=== PATIENT | female | born 1935 | race Caucasian/White ===

== ENCOUNTER → 2018-02-02 08:23 | Outpatient (CLI) | payer MEDICARE, SELFPAY ==
[2018-02-02 09:04] LABS: Abs Immature Grans 0.01 k/cumm (0.0-0.09); Absolute Basophil Count 0.06 k/cumm (0.0-0.2); Absolute Lymphocyte Count 1.65 k/cumm (1.2-3.4); Absolute Monocyte Count 0.59 k/cumm (0.11-0.7); Absolute Neutrophil Count 3.16 k/cumm (1.2-6.7); Eosinophils % 8.4; HGB 12.8 g/dL (12.0-15.5); Immature Grans % 0.2; Lymphocytes % 27.6; Mean Corp. HGB Concentration 33.7 g/dL (32.0-36.0); Mean Corpuscular Hemoglobin 32.5 pg (27.0-33.0); Mean Corpuscular Volume 96.4 fL (80-95); Mean Platelet Volume 10.1 fL (8.0-11.0); Monocytes % 9.9; Neutrophils % 52.9; Platelet Count 313 x1000/uL (130-400); RBC 3.94 m/cumm (4.00-5.20); RBC Distribution Width 12.9 % (11.7-14.6); White Blood Cell Count 5.97 k/cumm (4.4-10.8)
[2018-02-02 10:04] LABS: ALT 14 U/L (12-78); AST 12 U/L (15-37); Alkaline Phosphatase 49 U/L (46-116); C-Reactive Protein 0.19 mg/dL (0.0-0.3); CREATININE 0.77 mg/dL (0.55-1.02)
== END ==
PROVIDERS: PCP Family Medicine; Visit Provider Internal Medicine Rheumatology
DX: M06.4 Inflammatory polyarthropathy (principal); Z79.899 Other long term (current) drug therapy
CPT/HCPCS: 36415; 82565; 84075; 84450; 84460; 85025; 86140

== ENCOUNTER → 2018-02-16 11:15 | Outpatient (CLI) | payer MEDICARE, OTHER, SELFPAY | PROVIDERS: PCP Family Medicine; Visit Provider Orthopaedic Surgery | DX: M25.511 Pain in right shoulder (principal); M06.4 Inflammatory polyarthropathy | CPT/HCPCS: 99213 ==

== ENCOUNTER → 2018-04-06 10:08 | Outpatient (BNVA) | payer MEDICARE, OTHER, SELFPAY | PROVIDERS: Visit Provider Orthopaedic Surgery | DX: M25.511 Pain in right shoulder (principal); G89.29 Other chronic pain | CPT/HCPCS: 99211; 99213 ==

== ENCOUNTER 2018-06-09 02:04 | Outpatient (RCR) | payer MEDICARE, SELFPAY ==
[2018-06-09] MEDS: Normal Saline Flush 10 ML SYR IVP (10:17)
== END 2018-06-28 23:59 | disposition home or self-care (01) ==
LOC: INF 02:04
PROVIDERS: PCP Family Medicine; Visit Provider Family Medicine
DX: M81.0 Age-related osteoporosis without current pathological fracture (principal)
CPT/HCPCS: 96365; J3489

== ENCOUNTER 2018-08-05 09:54 | Outpatient (CLI) | payer MEDICARE, SELFPAY ==
--- NOTE | 2018-08-05 10:22 | DI.RAD_ITS ---
SYMPTOMS/DIAGNOSIS: PAIN S/P FALL LEFT WRIST: Four views of the wrist were obtained. There is marked degenerative change of the navicular greater multangular, navicular lesser multangular and greater multangular 1st metacarpal articulations with marked subchondral sclerosis, loss of the cartilaginous joint spaces and prominent osteophyte formation. The remainder of the carpus shows mild degenerative changes only. No evidence of acute injury.
== END 2018-08-05 10:14 ==
PROVIDERS: PCP Family Medicine; Visit Provider Physician Assistant Surgical
DX: M25.532 Pain in left wrist (principal); M19.032 Primary osteoarthritis, left wrist; Z91.81 History of falling
CPT/HCPCS: 73110

== ENCOUNTER 2018-08-05 10:12 | Outpatient (CLI) | payer MEDICARE, SELFPAY ==
--- NOTE | 2018-08-05 10:04 | DI.RAD_ITS ---
SYMPTOMS/DIAGNOSIS: PAIN S/P FALL LEFT SHOULDER: Two views were obtained. Mild degenerative changes of the glenohumeral joint noted. No other specific abnormality seen. LEFT ELBOW: Three views were obtained. No evidence of an elbow joint effusion or hemarthrosis. No focal bony abnormality seen.
== END 2018-08-05 10:32 ==
PROVIDERS: PCP Family Medicine; Referring Provider Family Medicine; Visit Provider Orthopaedic Surgery
DX: M25.512 Pain in left shoulder (principal); M19.012 Primary osteoarthritis, left shoulder; M25.522 Pain in left elbow; M25.532 Pain in left wrist; M19.032 Primary osteoarthritis, left wrist; S50.02XA Contusion of left elbow, initial encounter; S60.012A Contusion of left thumb without damage to nail, initial encounter; S40.012A Contusion of left shoulder, initial encounter; W19.XXXA Unspecified fall, initial encounter
CPT/HCPCS: 36415; 80053; 99214; 73030; 73080; 73110; 85025; 86140

== ENCOUNTER 2018-08-05 10:49 | Outpatient (CLI) | payer MEDICARE, SELFPAY ==
[2018-08-05 11:32] LABS: Abs Immature Grans 0.02 k/cumm (0.0-0.09); Absolute Basophil Count 0.04 k/cumm (0.0-0.2); Absolute Eosinophil Count 0.26 k/cumm (0.0-0.7); Absolute Lymphocyte Count 1.34 k/cumm (1.2-3.4); Absolute Monocyte Count 0.55 k/cumm (0.11-0.7); Absolute Neutrophil Count 7.18 k/cumm (1.2-6.7); Basophils % 0.4; Eosinophils % 2.8; HCT 38.7 % (36.0-46.0); HGB 12.5 g/dL (12.0-15.5); Immature Grans % 0.2; Lymphocytes % 14.3; Mean Corp. HGB Concentration 32.3 g/dL (32.0-36.0); Mean Corpuscular Hemoglobin 30.9 pg (27.0-33.0); Mean Corpuscular Volume 95.8 fL (80-95); Mean Platelet Volume 10.6 fL (8.0-11.0); Monocytes % 5.9; Neutrophils % 76.4; Platelet Count 352 x1000/uL (130-400); RBC 4.04 m/cumm (4.00-5.20); White Blood Cell Count 9.39 k/cumm (4.4-10.8)
[2018-08-05 12:26] LABS: ALT 11 U/L (12-78); AST 14 U/L (15-37); Albumin 3.6 g/dL (3.4-5.0); Alkaline Phosphatase 57 U/L (46-116); Anion Gap 8.1 mmol/L (3-11); BUN 20 mg/dL (7-18); Bilirubin, Total 0.4 mg/dL (0.2-1.0); C-Reactive Protein 0.68 mg/dL (0.0-0.3); CO2 27.9 mmol/L (21.0-32.0); CREATININE 0.69 mg/dL (0.55-1.02); Calcium 9.2 mg/dL (8.5-10.1); Chloride 105 mmol/L (98-107); Glucose 95 mg/dL (70-100); Potassium 4.6 mmol/L (3.5-5.1); Sodium 141 mmol/L (136-145); Total Protein 6.7 g/dL (6.4-8.2)
== END 2018-08-05 11:09 ==
PROVIDERS: PCP Family Medicine; Visit Provider Internal Medicine Rheumatology
DX: M06.4 Inflammatory polyarthropathy (principal); Z79.899 Other long term (current) drug therapy
CPT/HCPCS: 36415; 80053; 85025; 86140

== ENCOUNTER 2018-11-01 15:15 | Outpatient (CLI) | payer MEDICARE, SELFPAY ==
[2018-11-01 15:43] LABS: Abs Immature Grans 0.02 k/cumm (0.0-0.09); Absolute Basophil Count 0.05 k/cumm (0.0-0.2); Absolute Eosinophil Count 0.28 k/cumm (0.0-0.7); Absolute Lymphocyte Count 1.36 k/cumm (1.2-3.4); Absolute Monocyte Count 0.57 k/cumm (0.11-0.7); Absolute Neutrophil Count 6.65 k/cumm (1.2-6.7); Basophils % 0.6; Eosinophils % 3.1; HCT 40.5 % (36.0-46.0); HGB 13.5 g/dL (12.0-15.5); Immature Grans % 0.2; Lymphocytes % 15.2; Mean Corp. HGB Concentration 33.3 g/dL (32.0-36.0); Mean Corpuscular Hemoglobin 31.3 pg (27.0-33.0); Mean Platelet Volume 10.2 fL (8.0-11.0); Monocytes % 6.4; Neutrophils % 74.5; Platelet Count 338 x1000/uL (130-400); RBC 4.31 m/cumm (4.00-5.20); RBC Distribution Width 13.1 % (11.7-14.6); White Blood Cell Count 8.93 k/cumm (4.4-10.8)
[2018-11-01 16:25] LABS: ALT 17 U/L (12-78); AST 11 U/L (15-37); Albumin 3.7 g/dL (3.4-5.0); Alkaline Phosphatase 53 U/L (46-116); Anion Gap 7.2 mmol/L (3-11); BUN 21 mg/dL (7-18); Bilirubin, Total 0.3 mg/dL (0.2-1.0); C-Reactive Protein 0.44 mg/dL (0.0-0.3); CO2 27.8 mmol/L (21.0-32.0); CREATININE 0.75 mg/dL (0.55-1.02); Calcium 8.8 mg/dL (8.5-10.1); Chloride 104 mmol/L (98-107); Glucose 170 mg/dL (70-100); Potassium 4.1 mmol/L (3.5-5.1); Sodium 139 mmol/L (136-145); Total Protein 6.6 g/dL (6.4-8.2)
[2018-11-02 11:48] LABS: Hemoglobin A1C 6.2 % (4.5-6.2)
== END 2018-11-01 15:35 ==
PROVIDERS: PCP Family Medicine; Visit Provider Internal Medicine Rheumatology
DX: M06.4 Inflammatory polyarthropathy (principal); Z79.899 Other long term (current) drug therapy; R73.9 Hyperglycemia, unspecified
CPT/HCPCS: 36415; 80053; 83036; 85025; 86140

== ENCOUNTER 2019-02-11 02:06 | Outpatient (CLI) | payer MEDICARE, SELFPAY ==
[2019-02-11 09:22] LABS: Abs Immature Grans 0.02 k/cumm (0.0-0.09); Absolute Basophil Count 0.05 k/cumm (0.0-0.2); Absolute Eosinophil Count 0.38 k/cumm (0.0-0.7); Absolute Lymphocyte Count 1.52 k/cumm (1.2-3.4); Absolute Monocyte Count 0.66 k/cumm (0.11-0.7); Absolute Neutrophil Count 3.59 k/cumm (1.2-6.7); Basophils % 0.8; Eosinophils % 6.1; HCT 40.3 % (36.0-46.0); Immature Grans % 0.3; Lymphocytes % 24.4; Mean Corp. HGB Concentration 32.3 g/dL (32.0-36.0); Mean Corpuscular Hemoglobin 30.7 pg (27.0-33.0); Mean Platelet Volume 10.4 fL (8.0-11.0); Monocytes % 10.6; Neutrophils % 57.8; Platelet Count 375 x1000/uL (130-400); RBC 4.24 m/cumm (4.00-5.20); White Blood Cell Count 6.22 k/cumm (4.4-10.8)
[2019-02-11 10:25] LABS: ALT 11 U/L (12-78); Albumin 3.3 g/dL (3.4-5.0); Alkaline Phosphatase 60 U/L (46-116); Anion Gap 7.7 mmol/L (3-11); BUN 16 mg/dL (7-18); Bilirubin, Total 0.4 mg/dL (0.2-1.0); C-Reactive Protein 4.52 mg/dL (0.0-0.3); CO2 29.3 mmol/L (21.0-32.0); CREATININE 0.67 mg/dL (0.55-1.02); Calcium 8.7 mg/dL (8.5-10.1); Chloride 106 mmol/L (98-107); Glucose 87 mg/dL (70-100); Potassium 4.7 mmol/L (3.5-5.1); Sodium 143 mmol/L (136-145); Total Protein 6.4 g/dL (6.4-8.2)
[2019-02-11 10:29] LABS: AST < 5 U/L (15-37)
== END 2019-02-11 02:26 ==
PROVIDERS: PCP Family Medicine; Visit Provider Internal Medicine Rheumatology
DX: M06.4 Inflammatory polyarthropathy (principal); Z79.899 Other long term (current) drug therapy
CPT/HCPCS: 36415; 80053; 85025; 86140

== ENCOUNTER 2019-05-13 01:47 | Outpatient (CLI) | payer MEDICARE, SELFPAY ==
[2019-05-13 09:12] LABS: Abs Immature Grans 0.01 k/cumm (0.0-0.09); Absolute Basophil Count 0.05 k/cumm (0.0-0.2); Absolute Eosinophil Count 0.27 k/cumm (0.0-0.7); Absolute Lymphocyte Count 2.22 k/cumm (1.2-3.4); Absolute Monocyte Count 0.71 k/cumm (0.11-0.7); Absolute Neutrophil Count 4.53 k/cumm (1.2-6.7); Basophils % 0.6; Eosinophils % 3.5; HCT 42.5 % (36.0-46.0); HGB 13.9 g/dL (12.0-15.5); Immature Grans % 0.1; Lymphocytes % 28.5; Mean Corp. HGB Concentration 32.7 g/dL (32.0-36.0); Mean Corpuscular Hemoglobin 31.4 pg (27.0-33.0); Mean Corpuscular Volume 95.9 fL (80-95); Mean Platelet Volume 10.6 fL (8.0-11.0); Monocytes % 9.1; Neutrophils % 58.2; Platelet Count 360 x1000/uL (130-400); RBC 4.43 m/cumm (4.00-5.20); RBC Distribution Width 13.4 % (11.7-14.6); White Blood Cell Count 7.79 k/cumm (4.4-10.8)
[2019-05-13 09:46] LABS: ALT 14 U/L (14-59); AST 10 U/L (15-37); Albumin 3.8 g/dL (3.4-5.0); Alkaline Phosphatase 46 U/L (46-116); Anion Gap 7.4 mmol/L (3-11); BUN 19 mg/dL (7-18); Bilirubin, Total 0.3 mg/dL (0.2-1.0); C-Reactive Protein 0.13 mg/dL (0.0-0.3); CO2 29.6 mmol/L (21.0-32.0); CREATININE 0.72 mg/dL (0.55-1.02); Calcium 8.7 mg/dL (8.5-10.1); Chloride 106 mmol/L (98-107); Glucose 86 mg/dL (70-100); Potassium 4.5 mmol/L (3.5-5.1); Sodium 143 mmol/L (136-145); Total Protein 6.6 g/dL (6.4-8.2)
== END 2019-05-13 02:07 ==
PROVIDERS: PCP Family Medicine; Visit Provider Internal Medicine Rheumatology
DX: M06.4 Inflammatory polyarthropathy (principal); Z79.899 Other long term (current) drug therapy
CPT/HCPCS: 36415; 80053; 85025; 86140

== ENCOUNTER 2019-06-15 01:07 | Outpatient (RCR) | payer MEDICARE, SELFPAY ==
[2019-06-15] MEDS: Normal Saline Flush 10 ML SYR IVP (10:25)
== END 2019-06-28 23:59 | disposition home or self-care (01) ==
LOC: INF 01:07
PROVIDERS: PCP Family Medicine; Visit Provider Family Medicine
DX: M81.0 Age-related osteoporosis without current pathological fracture (principal)
CPT/HCPCS: 96365; J3489

== ENCOUNTER 2019-07-01 01:51 | Outpatient (CLI) | payer MEDICARE, SELFPAY ==
[2019-07-01 11:04] LABS: Abs Immature Grans 0.03 k/cumm (0.0-0.09); Absolute Basophil Count 0.06 k/cumm (0.0-0.2); Absolute Lymphocyte Count 1.77 k/cumm (1.2-3.4); Absolute Monocyte Count 0.71 k/cumm (0.11-0.7); Absolute Neutrophil Count 4.71 k/cumm (1.2-6.7); Basophils % 0.8; Eosinophils % 5.2; HCT 40.7 % (36.0-46.0); HGB 13.5 g/dL (12.0-15.5); Immature Grans % 0.4 %; Mean Corp. HGB Concentration 33.2 g/dL (32.0-36.0); Mean Corpuscular Hemoglobin 31.9 pg (27.0-33.0); Mean Corpuscular Volume 96.2 fL (80-95); Mean Platelet Volume 10.2 fL (8.0-11.0); Monocytes % 9.2; Neutrophils % 61.4; Platelet Count 344 x1000/uL (130-400); RBC 4.23 m/cumm (4.00-5.20); White Blood Cell Count 7.68 k/cumm (4.4-10.8)
[2019-07-01 11:51] LABS: ALT 11 U/L (14-59); AST 12 U/L (15-37); Albumin 3.8 g/dL (3.4-5.0); Alkaline Phosphatase 52 U/L (46-116); Anion Gap 6.9 mmol/L (3-11); BUN 20 mg/dL (7-18); Bilirubin, Total 0.4 mg/dL (0.2-1.0); C-Reactive Protein 0.18 mg/dL (0.0-0.3); CO2 29.1 mmol/L (21.0-32.0); CREATININE 0.66 mg/dL (0.55-1.02); Calcium 9.5 mg/dL (8.5-10.1); Chloride 107 mmol/L (98-107); Glucose 92 mg/dL (74-106); Potassium 4.9 mmol/L (3.5-5.1); Sodium 143 mmol/L (136-145); Total Protein 6.7 g/dL (6.4-8.2)
== END 2019-07-01 02:11 ==
PROVIDERS: PCP Family Medicine; Visit Provider Internal Medicine Rheumatology
DX: M06.4 Inflammatory polyarthropathy (principal); Z79.899 Other long term (current) drug therapy
CPT/HCPCS: 36415; 80053; 85025; 86140

== ENCOUNTER 2019-08-18 19:58 | Emergency (ER) | payer MEDICARE, SELFPAY ==
[2019-08-18] VITALS (15 sets, daily range): BP systolic 140–182; BP diastolic 57–116; PULSE 63–80; RESP 11–24; TEMP 36.7; O2SAT 93–100
--- NOTE | 2019-08-18 20:11 | ED.GENADUL_ITS ---
Discharge Plan Disposition Patient Disposition: HOME Condition: Good Discharge Details Chief Complaint: GenMedical Clinical Impression: Viral respiratory illness Primary Care Provider: Chico Lee ED Provider: Christophe Jaime Home Meds and New Rx's Prescriptions: Continued oxybutynin chloride 5 mg tablet extended release 24hr 5 mg PO DAILY Qty: 90 RF: 4 hydroxychloroquine [Plaquenil] 200 MG tablet 1.5 tab PO QAM Qty: 135 RF: 4 albuterol sulfate [Ventolin HFA] 8 GM HFA aerosol inhaler 2 puff Inhalation QID PRNQty: 3 RF: 4 acetaminophen [Tylenol Extra Strength] 500 MG tablet 3 tab PO DAILY PRN RF: 0 cholecalciferol (vitamin D3) [Vitamin D3] 2,000 UNIT capsule 2,000 unit PO DAILY Qty: 1 RF: 0 cyanocobalamin (vitamin B-12) 2,500 MCG tablet 1,000 mcg PO DAILY Qty: 1 RF: 0 clobetasol-emollient 15 GM cream 15 gm Topical DAILY Qty: 1 RF: 6 prednisone 5 mg tablet 10 mg PO DAILY Qty: 30 RF: 1 Discharge Instructions Instructions: Viral Syndrome (ED) Additional Instructions: It will be important to rest and stay hydrated over the next few days. Use Tylenol every 6-8 hours for discomfort. Your chest x-ray is negative for pneumonia. Likely viral illness which should resolve over the next week or so. Follow-up with primary care late next week if not doing better. Return to ED for shortness of breath, worsening/persistent chest pain, vomiting, mental status changes, other concerns. Referrals: Chico Lee [Primary Care Provider] - Medical Decision Making Patient presented with respiratory symptoms. Though she told the nurse she had chest pressure she denies this to me and states she just has a fleeting feeling of discomfort for a couple seconds now and then. She has no shortness of breath. Her EKG is unremarkable. 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 She is also on Plaquenil. IV started by nursing. Will send CBC and chemistry, obtain flu swab, obtain x-ray. Labs are fine. White count normal. Chest x-ray shows no evidence of infiltrate. She has reproducible chest wall pain likely from coughing. She does not have any type of prolonged chest pain or pressure and I do not think this is cardiac at all. Recommend rest and fluids as well as Tylenol every 6 hours. Follow-up with primary care next week if not better. Return to ED if increasing/prolong pain, shortness of breath, vomiting, mental status changes, other concerns. Medical Records Medical records reviewed: Yes I reviewed the patient's medical records. Lab Data Lab results reviewed: Yes I reviewed the patient's lab results. ECG Data Attestation: I personally reviewed and interpreted this ECG (s) as follows: Prior ECG tracings: not available for review Interpretation: Sinus rhythm at 77. Normal intervals and axis. Nonspecific ST changes noted. No acute elevation or depression. HPI General Mode of arrival: ambulatory . Date/Time Provider Initiated Documentation: 08/18/19 20:08 . Limitations to Documentation: no limitations . Information obtained by: patient, RN notes reviewed and old records reviewed . HPI Narrative: Patient presents to ED with complaint of not feeling well for the last couple of days. She reports nasal congestion, sore throat, dry cough. She denies having any type of shortness of breath. She denies having any chest pain. When asked about her complaint to the nurse she states she has had some fleeting less than a couple seconds discomfort in her chest that she cannot describe. She has no body aches or headaches. She has no vomiting or abdominal pain. Stools are little loose but not really diarrhea. Related Data Home Medications Medication Instructions Recorded Confirmed albuterol sulfate [Ventolin HFA] 2 puff INHALATION QID PRN #3 inh 09/14/12 08/18/19 hydroxychloroquine [Plaquenil] 1.5 tab PO QAM #135 tab 09/14/12 08/18/19 acetaminophen [Tylenol Extra 3 tab PO DAILY PRN tab-cap 03/22/13 08/18/19 Strength] cholecalciferol (vitamin D3) 2,000 unit PO DAILY #1 07/29/16 08/18/19 [Vitamin D3] cyanocobalamin (vitamin B-12) 1,000 mcg PO DAILY #1 07/29/16 08/18/19 clobetasol-emollient 15 gm TOPICAL DAILY #1 tube 05/15/17 08/18/19 prednisone 5 mg tablet 10 mg PO DAILY #30 tab-cap 04/06/19 08/18/19 oxybutynin chloride 5 mg 5 mg PO DAILY #90 tab-cap 06/03/19 08/18/19 tablet,extended release 24 hr Previous Rx's Medication Instructions Recorded clobetasol-emollient 15 gm TOPICAL DAILY #1 tube 05/15/17 oxybutynin chloride 5 mg 5 mg PO DAILY #90 tab-cap 06/03/19 tablet,extended release 24 hr Allergies Allergy/AdvReac Type Severity Reaction Status Date / Time rofecoxib AdvReac Mild NAUSEA Unverified 08/18/19 20:06 methotrexate AdvReac Unknown Unverified 08/18/19 20:06 shellfish derived AdvReac NAUSEA & Unverified 08/18/19 20:06 VOMITING General Stated Complaint: GenMedical EZEKIEL: 3 Review of Systems Narrative: As documented in HPI otherwise negative as below. Const: no fever, chills, weakness Resp: cough; no SOB, pleuritic pain CV: no CP, diaphoresis, edema, syncope GI: no abdominal pain, nausea, vomiting, diarrhea Neuro: no headache, numbness, focal weakness, confusion [facility] Medical History (Updated 08/18/19 @ 21:19 by Christophe Jaime MD) Depression With anxiety previously treated with citalopram. Hyperlipidemia (Chronic) Lichen sclerosus et atrophicus of the vulva Diagnosed 1985 with [place] [facility] Periodic clobetasol use. Osteoporosis (Chronic) metatarsal bone fracture left, compression fx back chronic prednisone reclast Pernicious anemia (Chronic) oral B12 Polymyalgia rheumatica (Chronic) sero neg RA, sees fama Urge incontinence of urine Mild symptoms Vaginal wall prolapse Stage III cystocele and rectocele. 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 Colpocleisis recommended. Surgical History Abdominal hysterectomy BSO. Had wound infection. Appendectomy Cholecystectomy Colonoscopy - IV Sedation (12/31/12) WENDY BYRNE Colonoscopy - MAC (05/18/15) DR.C NGUYEN Cystocele Repair - Anterior Colprrhaphy 09/19/2011 Extraction of cataract O.U. Replacement of total knee joint (~2008) LEFT Sigmoidoscopy (~2003) resection for diverticulitis and divertic.abscess Social History Smoking/Tobacco Use Status: Never Alcohol Intake: never Drug use: Never Substance use type: does not use Household members: spouse and other Details: H-Jean Number of Children: 3 Do you feel safe at home: Yes Do you feel safe in your relationship?: Yes Female Reproductive History Menstrual Menopause type: surgical (SILVIO/BSO) History History 4 Para 4 Hx # Term Pregnancies 4 Multiple births Hx # Pregnancies Ectopic pregnancies AB induced Hx Number of Living Children 3 AB spontaneous Exam Narrative Exam Narrative: Vitals: Afebrile. Elevated blood pressure otherwise normal vitals. Room air pulse oximetry mid to low 90s. Const: WDWN elderly female in NAD. HEENT: NC/AT. Normal facial exam. TMs clear bilaterally. Oropharynx and posterior oropharynx unremarkable. Eyes: Normal conjunctiva and sclera. Neck: Supple. Trachea midline. Lungs: Normal respiratory effort. Lungs are clear. There is no wheezing or rhonchi appreciated. There is reproducible chest wall pain with palpation along the sternal border and across the lower ribs. Cor: RRR without murmur/gallop. Good radial pulses. GI: Soft. NT/ND. No guarding or rebound. Neuro: A+O x 3. Normal speech, mentation, gait. Cranial nerves II - XII grossly intact. No gross motor or sensory deficit. Ext: No C/C/E. No calf tenderness. Skin: Warm and dry without rash. Course Vital Signs Vital signs: Vital Signs Temperature 98.1 F 08/18/19 20:02 Pulse 80 08/18/19 20:02 Respiratory Rate 19 08/18/19 20:02 Blood Pressure 182/74 H 08/18/19 20:02 Pulse Oximetry 93 L 08/18/19 20:02 Temperature 98.1 F 08/18/19 20:02 Temperature Source Temporal Artery Scan 08/18/19 20:02 Pulse 80 08/18/19 20:02 Respiratory Rate 19 08/18/19 20:07 Respiratory Effort Non-Labored 08/18/19 20:07 Respiratory Depth Normal 08/18/19 20:07 Respiratory Pattern Normal 08/18/19 20:07 Blood Pressure 182/74 H 08/18/19 20:02 Pulse Oximetry 93 L 08/18/19 20:02 Oxygen Delivery Method Room Air 08/18/19 20:02 Oxygen Flow Rate 0 08/18/19 20:02 Pain Level 0 08/18/19 20:02
[2019-08-18 20:38] LABS: Abs Immature Grans 0.01 k/cumm (0.0-0.09); Absolute Basophil Count 0.03 k/cumm (0.0-0.2); Absolute Eosinophil Count 0.06 k/cumm (0.0-0.7); Absolute Lymphocyte Count 1.97 k/cumm (1.2-3.4); Absolute Monocyte Count 0.59 k/cumm (0.11-0.7); Absolute Neutrophil Count 7.41 k/cumm (1.2-6.7); Basophils % 0.3; Eosinophils % 0.6; HCT 39.9 % (36.0-46.0); HGB 13.3 g/dL (12.0-15.5); Immature Grans % 0.1 %; Lymphocytes % 19.6; Mean Corp. HGB Concentration 33.3 g/dL (32.0-36.0); Mean Corpuscular Hemoglobin 32.1 pg (27.0-33.0); Mean Corpuscular Volume 96.4 fL (80-95); Mean Platelet Volume 10.7 fL (8.0-11.0); Monocytes % 5.9; Neutrophils % 73.5; Platelet Count 344 x1000/uL (130-400); RBC 4.14 m/cumm (4.00-5.20); RBC Distribution Width 12.9 % (11.7-14.6); White Blood Cell Count 10.07 k/cumm (4.4-10.8)
[2019-08-18 20:41] LABS: BUN 23 mg/dL (7-18); CREATININE 0.95 mg/dL (0.55-1.02); Calcium 8.8 mg/dL (8.5-10.1); Chloride 105 mmol/L (98-107); Estimated GFR 56.32 (mL/min/1.73m2); Glucose 163 mg/dL (74-106); Potassium 3.9 mmol/L (3.5-5.1); Sodium 142 mmol/L (136-145)
--- NOTE | 2019-08-18 20:50 | DI.RAD_ITS ---
EXAM: XR CHEST 2V PA LATERAL INDICATION: cough. COMPARISON: LEFT RIBS TO INCLUDE CXR from 02/22/2016 TECHNIQUE: 2D digital imaging was performed. FINDINGS: The heart size is within normal limits. A hiatal hernia is again noted, moderate in size. The lungs show mild fibrotic changes but are otherwise clear. No focal infiltrate, effusion or pulmonary meliza a is seen. There is a stable midthoracic compression fracture. There are also mild degenerative tin nges of the thoracic spine. IMPRESSION: No acute abnormality. DATA REPOSITORY: RADIATION DOSE DELIVERED:
--- NOTE | 2019-08-18 21:07 | DI.VRAD_ITS ---
PROCEDURE INFORMATION: Exam: XR Chest, 2 Views Exam date and time: 08/18/2019 8:48 PM Age: 84 years old Clinical indication: Cough TECHNIQUE: Imaging protocol: XR of the chest Views: 2 views. COMPARISON: CR LEFT RIBS TO INCLUDE CXR 02/22/2016 8:47 PM FINDINGS: Lungs: Hyperinflation. Minimally prominent retrosternal and retrocardiac air spaces. No consolidation. Pleural space: Unremarkable. No pleural effusion. No pneumothorax. Heart/Mediastinum: Widening of superior mediastinum, unchanged. No cardiomegaly. Diaphragm: Flattened hemidiaphragms. Bones/joints: Unremarkable. IMPRESSION: 1. No acute findings. 2. Radiographic appearance consistent with the presence of COPD. Dictated and Authenticated by: Clyde Live MD. Ordering:SHEBA Saeed MD
[2019-08-18] MEDS: Acetaminophen 325 MG TAB 650 MG PO (21:26)
== END 2019-08-18 21:40 | disposition home or self-care (01) ==
PROVIDERS: Emergency Provider Emergency Medicine; PCP Family Medicine
DX: J22 Unspecified acute lower respiratory infection (principal)
CPT/HCPCS: 80048; 87449; 93005; 99284; 71046; 85025; 93010; 99283

== ENCOUNTER 2020-01-02 10:36 | Outpatient (CLI) | payer MEDICARE, SELFPAY ==
--- NOTE | 2020-01-02 10:02 | DI.RAD_ITS ---
EXAM: XR CHEST 2V PA LATERAL CLINICAL HISTORY: crackles on exam bibasilar, R09.89 TECHNIQUE: 2D digital imaging was performed. COMPARISON: No exams were available for comparison FINDINGS: The heart size is normal. The aorta is tortuous and shows calcification. The lungs are well inflate d. There are mild fibrotic changes. No infiltrate, effusion or pneumothorax is seen. There is a sta ble midthoracic compression fracture. There is a small hiatal hernia. IMPRESSION: No acute abnormality.
== END 2020-01-02 10:56 ==
PROVIDERS: PCP Nurse Practitioner Family; Visit Provider Nurse Practitioner Family
DX: R09.89 Other specified symptoms and signs involving the circulatory and respiratory systems (principal); K44.9 Diaphragmatic hernia without obstruction or gangrene
CPT/HCPCS: 71046

== ENCOUNTER 2020-01-06 03:23 | Outpatient (CLI) | payer MEDICARE, SELFPAY ==
[2020-01-06 10:46] LABS: Abs Immature Grans 0.03 k/cumm (0.0-0.09); Absolute Basophil Count 0.05 k/cumm (0.0-0.2); Absolute Eosinophil Count 0.38 k/cumm (0.0-0.7); Basophils % 0.4; Eosinophils % 3.3; HCT 40.5 % (36.0-46.0); HGB 13.4 g/dL (12.0-15.5); Immature Grans % 0.3 %; Lymphocytes % 13.1; Mean Corp. HGB Concentration 33.1 g/dL (32.0-36.0); Mean Corpuscular Volume 96.7 fL (80-95); Mean Platelet Volume 10.3 fL (8.0-11.0); Monocytes % 5.3; Neutrophils % 77.6; Platelet Count 335 x1000/uL (130-400); RBC 4.19 m/cumm (4.00-5.20); RBC Distribution Width 12.9 % (11.7-14.6); White Blood Cell Count 11.41 k/cumm (4.4-10.8)
[2020-01-06 10:53] LABS: Absolute Lymphocyte Count 1.49 k/cumm (1.2-3.4); Absolute Neutrophil Count 8.85 k/cumm (1.2-6.7)
[2020-01-06 10:54] LABS: Hemoglobin A1C 5.8 % (3.8-5.6)
[2020-01-06 11:30] LABS: Calculated LDL 154 mg/dL (<100); Cholesterol 233 mg/dL (<200); HDL Cholesterol 58 mg/dL (40-60); Triglyceride 109 mg/dL (<150)
[2020-01-06 11:34] LABS: ALT 14 U/L (14-59); AST 14 U/L (15-37); Albumin 3.9 g/dL (3.4-5.0); Alkaline Phosphatase 41 U/L (46-116); Anion Gap 8.9 mmol/L (3-11); BUN 18 mg/dL (7-18); Bilirubin, Total 0.4 mg/dL (0.2-1.0); C-Reactive Protein 0.11 mg/dL (0.0-0.3); CO2 28.1 mmol/L (21.0-32.0); CREATININE 0.82 mg/dL (0.55-1.02); Calcium 9.2 mg/dL (8.5-10.1); Chloride 104 mmol/L (98-107); Glucose 104 mg/dL (74-106); Potassium 4.2 mmol/L (3.5-5.1); Sodium 141 mmol/L (136-145); Total Protein 6.7 g/dL (6.4-8.2)
== END 2020-01-06 03:43 ==
PROVIDERS: PCP Nurse Practitioner Family; Visit Provider Internal Medicine Rheumatology
DX: R73.03 Prediabetes (principal); E78.5 Hyperlipidemia, unspecified; M06.4 Inflammatory polyarthropathy; Z79.899 Other long term (current) drug therapy
CPT/HCPCS: 36415; 80053; 80061; 83036; 85025; 86140

== ENCOUNTER → 2020-03-20 10:40 | Outpatient (BNVA) | payer MEDICARE, SELFPAY | PROVIDERS: PCP Nurse Practitioner Family; Referring Provider Nurse Practitioner Family; Visit Provider Orthopaedic Surgery | DX: M19.011 Primary osteoarthritis, right shoulder (principal) | CPT/HCPCS: 20610; 99213; J1040 ==

== ENCOUNTER 2020-06-26 02:51 | Outpatient (RCR) | payer MEDICARE, SELFPAY ==
[2020-06-26] MEDS: Normal Saline Flush 10 ML SYR IVP (10:09)
== END 2020-06-28 23:59 | disposition home or self-care (01) ==
LOC: INF 02:51
PROVIDERS: PCP Nurse Practitioner Family; Visit Provider Nurse Practitioner Acute Care
DX: M81.0 Age-related osteoporosis without current pathological fracture (principal)
CPT/HCPCS: 96365; J3489

== ENCOUNTER 2020-07-24 15:31 | Outpatient (CLI) | payer MEDICARE, SELFPAY ==
--- NOTE | 2020-07-24 14:54 | DI.RAD_ITS ---
EXAM: XR SHOULDER RT COMPLETE 2+V CLINICAL HISTORY: F/u. TECHNIQUE: 2D digital imaging was performed. COMPARISON: CR XR shoulder LT complete 2+V from 08/05/2018 CR XR CHEST 2V PA LATERAL from 01/02/2020 CR XR CHEST 2V PA LATERAL from 01/02/2020 FINDINGS: There is severe narrowing of the normal acromial humeral space. The humeral head articulates with th e inferior aspect of the acromion which appears deformed and thinned. There is also severe narrowing of the glenoid humeral joint. The findings have worsened when compared with the previous chest x-ra y. There is mild spurring at the AC joint. IMPRESSION: Severe degenerative changes and chronic rotator cuff tear. DATA REPOSITORY: RADIATION DOSE DELIVERED:
== END 2020-07-24 15:51 ==
PROVIDERS: PCP Nurse Practitioner Family; Referring Provider Nurse Practitioner Family; Visit Provider Student in an Organized Health Care Education/Training Program
DX: M19.011 Primary osteoarthritis, right shoulder (principal); M06.4 Inflammatory polyarthropathy; M75.101 Unspecified rotator cuff tear or rupture of right shoulder, not specified as traumatic
CPT/HCPCS: 20610; 99214; 73030; J1040

== ENCOUNTER → 2020-11-20 13:00 | Outpatient (BNVA) | payer MEDICARE, SELFPAY | PROVIDERS: PCP Nurse Practitioner Family; Referring Provider Nurse Practitioner Family; Visit Provider Student in an Organized Health Care Education/Training Program | DX: M19.011 Primary osteoarthritis, right shoulder (principal); M75.101 Unspecified rotator cuff tear or rupture of right shoulder, not specified as traumatic | CPT/HCPCS: 20610; 99213; J1040 ==

== ENCOUNTER 2020-12-08 13:03 | Outpatient (REF) | payer MEDICARE, SELFPAY | END 2020-12-08 13:04 | disposition home or self-care (01) | LOC: LBN 13:03 | PROVIDERS: Visit Provider Nurse Practitioner Family | DX: R35.0 Frequency of micturition (principal) | CPT/HCPCS: 87077; 87086; 87186 ==

== ENCOUNTER 2020-12-25 12:05 | Outpatient (REF) | payer MEDICARE, SELFPAY ==
[2020-12-25 14:06] LABS: HCT 40.4 % (36.0-46.0); HGB 13.2 g/dL (11.2-15.7); MCH 32.3 pg (27.0-33.0); MCHC 32.7 % (32.0-36.0); MCV 98.8 fL (80-95); Platelet Count 341 10^3/uL (130-400); RBC 4.09 10^6/uL (3.93-5.22); RDW 12.9 % (11.7-14.6)
[2020-12-25 14:21] LABS: Anion Gap 8.7 mmol/L (3-11); BUN 16 mg/dL (7-18); CO2 29.3 mmol/L (21.0-32.0); CREATININE 0.8 mg/dL (0.55-1.02); Calcium 8.7 mg/dL (8.5-10.1); Chloride 105 mmol/L (98-107); Ferritin 77 ng/mL (8-252); Glucose 121 mg/dL (74-106); Sodium 143 mmol/L (136-145)
[2020-12-25 14:50] LABS: Iron 69 ug/dL (50-170); Total Iron Binding Capacity 300 ug/dL (250-450); Transferrin Sat 23 % (15-50)
== END 2020-12-25 12:06 | disposition home or self-care (01) ==
LOC: LBN 12:05
PROVIDERS: PCP Nurse Practitioner Family; Visit Provider Nurse Practitioner Family
DX: G25.81 Restless legs syndrome (principal); Z86.2 Personal history of diseases of the blood and blood-forming organs and certain disorders involving the immune mechanism
CPT/HCPCS: 80048; 85027; 82728; 83540; 83550

== ENCOUNTER 2020-12-30 14:13 | Emergency (ER) | payer MEDICARE, SELFPAY ==
[2020-12-30 14:17] VITALS: BP 154/68; PULSE 74; TEMP 36.7; O2SAT 96
--- NOTE | 2020-12-30 14:25 | ED.GENADUL_ITS ---
Discharge Plan Disposition Patient Disposition: HOME Condition: Good Discharge Details Clinical Impression: Acute pain of right foot Primary Care Provider: Destiny Brooke ED Provider: Margarita Romo Home Meds and New Rx's Prescriptions: Continued prednisone 5 mg tablet 5 mg PO DAILY Qty: 30 RF: 1 cholecalciferol (vitamin D3) 25 mcg (1,000 unit) capsule 25 mcg PO DAILY RF: 0 aspirin 81 mg tablet,delayed release (DR/EC) 81 mg PO DAILY RF: 0 cyanocobalamin (vitamin B-12) 2,500 MCG tablet 1,000 mcg PO DAILY Qty: 1 RF: 0 oxybutynin chloride 5 mg tablet extended release 24hr 5 mg PO DAILY Qty: 90 RF: 4 Discharge Instructions Instructions: Leg Pain (ED) Additional Instructions: Encourage rest, ice, elevation. Tylenol and/or ibuprofen as needed for continued discomfort. Please keep your appointment this week with your physician. If you develop fever/chills, increased pain, difficulty walking or other new/worsening symptoms please seek care urgently once again. Referrals: Destiny Brooke, OBO [Primary Care Provider] - Julee Sherman [ [facility] STAFF PHYSICIAN] - Medical Decision Making Patient is a pleasant 85-year-old female presenting today with chief complaint of right lower extremity pain. Reports for the past 2 days she has been having spasms. States these are brought on with ambulation though she does have some low-level discomfort when at rest. Pain is primarily in the midfoot and when she tries to dorsiflex can radiate up the anterior aspect of the calf towards the knee. No pain elicited when she palpates on the anterior aspect of the calf, but does have pain in the foot. No known trauma. However, has been working on her [employer] and has been hauling [employer], belives she may have injuried herself doing this. Denies fevers or chills. Has not had pain like this historically. No recent travel or accidents being sedentary. Patient is not anticoagulated, no history of blood clots. On exam, patient appears nontoxic. Vital signs are stable. She discretely tender in the midfoot with blood palpation on the plantar and dorsal surface. She has 2+ distal pulses, intact capillary refill, calf is soft and nontender. She does have pain that radiates up the calf with dorsiflexion of the ankle. Her exam is most consistent with musculoskeletal issue. Concerned for LisFranc injury, will obtained weighted view xray. Will give Ibuprofen for discomfort. FINDINGS: Bones/joints: There are severe midfoot degenerative changes. No acute fracture or malalignment. Soft tissues: Normal. IMPRESSION: 1. No acute fracture or malalignment. 2. Severe mid foot degenerative changes. Discussed the significant arthritis with the patient. She and i discussed further evaluation. However, she agrees that her pain with dorsiflexion is associated with MSK cause in the setting of her OA. Considered mendez splint, ligamentous discomfort, contusion vs. other. No evidence of infection. She states that she has upcoming appointment with her OA specialist at [facility], would prefer to keep this appointment and discuss further then. I also offered splinting or supportive device but she would like to hold off. She advises she has more supportive shoes at home. Return precautions were discussed. All of her questions and cocnerns were addressed, she is in agreement with this plan. HPI General Mode of arrival: ambulatory . Date/Time Provider Initiated Documentation: 12/30/20 14:14 . Limitations to Documentation: no limitations . Information obtained by: patient and RN notes reviewed . History of Present Illness 85 year old F presents to the emergency department with the chief complaint of right foot pain, described as moderate, with intensity rated at 6. Quality is described as aching, and is localized to the right and lower extremity. Patient extremity (radiates up anterior calf with dorsiflexion of foot). Patient started experiencing this day(s) and it has been constant. Immobilization improves symptom(s), Movement worsens symptoms . Patient notes no other symptoms.; denies chest pain, fever/chills, rash, shortness of breath and weakness. Patient did receive the following treatments prior to arrival, other (tylenol) Related Data Home Medications Medication Instructions Recorded Confirmed cyanocobalamin (vitamin B-12) 1,000 mcg PO DAILY #1 07/29/16 11/20/20 cholecalciferol (vitamin D3) 25 25 mcg PO DAILY 12/29/19 11/20/20 mcg (1,000 unit) capsule prednisone 5 mg tablet 5 mg PO DAILY #30 tab-cap 12/29/19 11/20/20 aspirin 81 mg tablet,delayed 81 mg PO DAILY 03/20/20 11/20/20 release oxybutynin chloride 5 mg 5 mg PO DAILY #90 tab-cap 05/15/20 11/20/20 tablet,extended release 24 hr Previous Rx's Medication Instructions Recorded oxybutynin chloride 5 mg 5 mg PO DAILY #90 tab-cap 05/15/20 tablet,extended release 24 hr Allergies Allergy/AdvReac Type Severity Reaction Status Date / Time benzonatate Allergy Intermediate Verified 11/20/20 13:09 rofecoxib AdvReac Mild NAUSEA Unverified 11/20/20 13:09 methotrexate AdvReac Unknown Unverified 11/20/20 13:09 shellfish derived AdvReac NAUSEA & Unverified 11/20/20 13:09 VOMITING General Stated Complaint: Vascular EZEKIEL: 3 Review of Systems Constitutional Constitutional: Reports as per HPI, Denies chills, Denies fever(s), Denies headache(s) and Denies weakness ENT Ears, Nose, Mouth, and Throat: Denies headache(s) Cardiovascular Cardiovascular: Reports as per HPI Respiratory Respiratory: Reports as per HPI and Denies cough Musculoskeletal Musculoskeletal: Reports as per HPI and Denies tingling Integumentary/Breasts Skin/Breast: Reports as per HPI, Denies rash and Denies wounds Neurologic Neurologic: Reports as per HPI, Denies headache(s), Denies tingling, Denies paresthesias and Denies weakness [facility] Medical History DJD of right shoulder Hyperlipidemia Inflammatory polyarthropathy Followed by [facility] Rheumatology, 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 Periodic clobetasol use. Major depressive disorder Osteoporosis Reclast annually. Dexa 2019 Pelvic organ prolapse quantification stage 3 cystocele Polymyalgia rheumatica Prediabetes Urge incontinence Vitamin B 12 deficiency Surgical History H/O cataract extraction S/P appendectomy S/P cholecystectomy S/P colon resection (~2003) S/P colonoscopy S/P total abdominal hysterectomy and bilateral salpingo-oophorectomy Status post total left knee replacement (01/31/09) 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) Family History Mother , at 50 from Crohn disease Crohn disease Father , at 50 of SC Heart disease Myocardial infarction Brother , at 76 of lung cancer Lung cancer Brother , at 50 of cancer Cancer Son , at 55 from esophageal cancer Esophageal cancer Son No problems noted. Son No problems noted. Daughter No problems noted. Maternal Grandfather No problems noted. Maternal Grandmother No problems noted. Paternal Grandfather No problems noted. Paternal Grandmother No problems noted. Social History Smoking/Tobacco Use Status: Never Smoking risk assessment performed?: Yes Alcohol Intake: never Drug use: Never Substance use type: does not use Household members: spouse and other Details: H-Jean Number of Children: 3 Current gender identity: female Do you feel safe at home: Yes Do you feel safe in your relationship?: Yes Female Reproductive History Menstrual Menopause type: surgical (SILVIO/BSO) History History 4 Para 4 Hx # Term Pregnancies 4 Multiple births Hx # Pregnancies Ectopic pregnancies AB induced Hx Number of Living Children 3 AB spontaneous Exam Const General: cooperative, healthy appearing, comfortable, no acute distress, well developed and well groomed Nutritional Appearance: average body habitus and well nourished Orientation: alert and awake Resp Effort & Inspection: normal respiratory effort, able to speak in complete sentences and no respiratory distress Cardio Rate: regular rate Rhythm: regular rhythm Skin General skin exam: no rashes or lesions noted Lesions: no lesions Rashes: no rashes Trauma: no lacerations or abrasions Neuro General: patient alert and patient awake Cognition: normal cognition Speech: speech normal Gait: normal gait Motor: muscle tone normal throughout Sensory Exam: no sensory deficits noted Extrem Right lower extremity: normal to inspection, full ROM, normal capillary refill, no joint enlargement, hip/thigh Details: normal to inspection, knee (well healed TKA incision) Details: normal to inspection and normal ROM; no tenderness, no swelling, no deformity and no unusual warmth, lower leg Details: normal to inspection, no edema and other (no posterior calf pain); no erythema, no tenderness (indicates anterior tibia as area pain radiates to but no pain with palpation), no localized swelling, no palpable cords, no lacerations, no ecchymosis, no crepitus, no deformity and no unusual warmth, ankle Details: normal to inspection, no edema and normal ROM; no tenderness and no swelling and foot Details: normal capillary refill, normal to inspection, tenderness Location: of the mid foot Location: dorsally and along the plantar surface, toes with normal ROM, no edema, vascular exam Details: dorsalis pedis pulse present, posterior tibial pulse present and normal capillary refill and motor-sensory exam Details: light-touch normal; no unusual warmth, no laceration and no ecchymosis; no edema Psych Appearance: grossly normal and well kempt Mental Status: mental status grossly normal Speech and Movement: speech and movement normal Course Vital Signs Vital signs: Vital Signs Temperature 36.7 C 12/30/20 14:17 Pulse 74 12/30/20 14:17 Blood Pressure 154/68 H 12/30/20 14:17 Pulse Oximetry 96 12/30/20 14:17 Temperature 36.7 C 12/30/20 14:17 Temperature Source Temporal Artery Scan 12/30/20 14:17 Pulse 74 12/30/20 14:17 Respiratory Effort Non-Labored 12/30/20 14:22 Blood Pressure 154/68 H 12/30/20 14:17 Blood Pressure Position Supine 12/30/20 14:17 Pulse Oximetry 96 12/30/20 14:17 Oxygen Delivery Method Room Air 12/30/20 14:17 Oxygen Flow Rate 0 12/30/20 14:17 Pain Level 9 12/30/20 14:17
[2020-12-30] MEDS: Ibuprofen 600 MG TAB PO (14:34)
--- NOTE | 2020-12-30 15:01 | DI.RAD_ITS ---
Exam(s) XR FOOT RT COMPLETE EXAM: XR FOOT RT COMPLETE CLINICAL HISTORY: midfoot pain, weighted view too please. TECHNIQUE: 2D digital imaging was performed. COMPARISON: CR LEFT FOOT COMPLETE from 08/09/2009 FINDINGS: BONES: No acute fracture is present. No bony destructive lesion is seen. Hallux valgus. Osteopenia. Heel spur. JOINTS: No dislocation present. Severe degenerative changes tarsal metatarsal joint and navicular cu neiform joints. SOFT TISSUE: Normal. IMPRESSION: Degenerative changes. DATA REPOSITORY: RADIATION DOSE DELIVERED:
--- NOTE | 2020-12-30 15:20 | DI.VRAD_ITS ---
PROCEDURE INFORMATION: Exam: XR Right Foot Exam date and time: 12/30/2020 2:31 PM Age: 85 years old Clinical indication: Right; Patient HX: Pain mid foot - no trauma. Wt bearing views included TECHNIQUE: Imaging protocol: XR Right foot. Views: 3 or more views. Total images: 5 COMPARISON: No relevant prior studies available. FINDINGS: Bones/joints: There are severe midfoot degenerative changes. No acute fracture or malalignment. Soft tissues: Normal. IMPRESSION: 1. No acute fracture or malalignment. 2. Severe mid foot degenerative changes. Dictated and Authenticated by: Anai Montero MD. Ordering:SISI Avila MD
== END 2020-12-30 15:40 | disposition home or self-care (01) ==
PROVIDERS: Emergency Provider Physician Assistant; PCP Nurse Practitioner Family
DX: M79.671 Pain in right foot (principal)
CPT/HCPCS: 99283; 73630

== ENCOUNTER → 2021-03-19 08:59 | Outpatient (BNVA) | payer MEDICARE, SELFPAY | PROVIDERS: PCP Nurse Practitioner Family; Visit Provider Student in an Organized Health Care Education/Training Program | DX: M19.011 Primary osteoarthritis, right shoulder (principal) | CPT/HCPCS: 20610; 99213; J1040 ==

== ENCOUNTER → 2021-05-20 10:59 | Outpatient (BNVA) | payer MEDICARE, SELFPAY | PROVIDERS: PCP Nurse Practitioner Family; Referring Provider Nurse Practitioner Family | DX: M75.101 Unspecified rotator cuff tear or rupture of right shoulder, not specified as traumatic (principal); M12.811 Other specific arthropathies, not elsewhere classified, right shoulder | CPT/HCPCS: 20610; J1040 ==

== ENCOUNTER 2021-06-03 08:45 | Emergency (ER) | payer MEDICARE, SELFPAY ==
[2021-06-03 08:50] VITALS: BP 139/74; PULSE 56; RESP 20; TEMP 36.4; O2SAT 91
--- NOTE | 2021-06-03 08:59 | W.ED.GENAD ---
Discharge Plan Disposition Patient Disposition: HOME Condition: Improving Discharge Details Clinical Impression: Nausea vomiting and diarrhea Primary Care Provider: Destiny Brooke ED Provider: Margarita Romo Home Meds and New Rx's Prescriptions: New ondansetron 4 mg tablet,disintegrating 4 mg PO Q6H PRN (Reason: nausea and vomiting) Qty: 7 RF: 0 Continued mirtazapine 7.5 mg tablet 7.5 mg PO QHS Qty: 90 RF: 4 hydroxyzine HCl 10 mg tablet 10 mg PO TID PRN (Reason: anxiety) RF: 0 magnesium 500 mg tablet 15 mg PO DAILY RF: 0 prednisone 5 mg tablet 5 mg PO DAILY Qty: 30 RF: 1 cholecalciferol (vitamin D3) 25 mcg (1,000 unit) capsule 25 mcg PO DAILY RF: 0 cyanocobalamin (vitamin B-12) 2,500 MCG tablet 1,000 mcg PO DAILY Qty: 1 RF: 0 oxybutynin chloride 5 mg tablet extended release 24hr 5 mg PO DAILY Qty: 90 RF: 4 Discharge Instructions Instructions: Ondansetron (By mouth), Acute Nausea and Vomiting (ED) Additional Instructions: Your nausea, vomiting and diarrhea is likely associated with the food yesterday. Please continue to encourage frequent sips of fluid food. You may use Tylenol as needed for discomfort. You may use the Zofran as prescribed to help any recurrence of your nausea. You may use 1 pill this dissolved under tongue every 6 hours. You may advance her diet as tolerated. Please stick with bland diet such as bananas, rice, applesauce, toast for at least the next 24 hours. Please keep your upcoming appointment with your primary care for reevaluation. If you develop any fever/chills, increased abdominal pain, inability stay hydrated or other new/worsening symptom please seek care urgently once again. Referrals: Destiny Brooke, BOO [Primary Care Provider] - Discharge Data Discharge Date/Time-TO BE ENTERED AT DEPARTURE: 06/03/21 10:34 Medical Decision Making Patient is an 86-year-old female presenting to complaint nausea, vomiting diarrhea. She reports that she was at the [employer] yesterday for celebration. Believes that she had a bad doughnut. She states that in the middle of the night she began having large amount of vomiting and diarrhea. Report 3 episodes of emesis this morning. All nonbloody. Denies any blood in stool. States that she does have some mild discomfort in her abdomen, primarily along the left side. Past surgical history is pertinent for cholecystectomy, appendectomy, colon resection, hysterectomy. Patient does report that she has a have past medical history pertinent for diverticulitis. On exam, patient appears nontoxic. She appears dry. Normal cardiac and lung sounds. Abdominal exam is nontender, no focal tenderness. Active bowel sounds. She indicates left side of abdomen as area of maximal pain when this was present. As patient is already imporving and has no focal tenderness, will hold off on imaging. Primarily concerned for food born illness based on her hx. Will hydrate and give Zofran for symptomatic management. Discussed plan with patient who is in agreement. Labs reviewed. No leukocytosis. Stable H&H. Potassium is barely low at 3.4, labs otherwise without significant abnormality. Discussed these findings with the patient. She is feeling significantly improved. All of her abdominal discomfort is gone. I did reevaluate her abdomen and she does not have any tenderness along the left side. She feels ready to be discharged at this time. Was p.o. challenged and able to drink water without difficulty or recurrent vomiting. Is not had any bowel movement since being here. She like to be able to be discharged home to go rest. We will continue her with Zofran in case she has recurrence of her nausea or vomiting. Return precautions were discussed. All of her questions and concerns were addressed and she is agreement with plan. Encouraged that she follow-up with primary care at the end of the week for reevaluation. She does state that she does have an upcoming appointment with them HPI General Mode of arrival: ambulatory. Date/Time Provider Initiated Documentation: 06/03/21 08:48. Limitations to Documentation: no limitations. Information obtained by: patient, RN notes reviewed and old records reviewed. History of Present Illness 86 year old F presents to the emergency department with the chief complaint of nausea, vomiting, diarrhea, abdominal cramping, described as mild, with intensity rated at 2. Quality is described as other (cramping), and is localized to the abdomen. Patient reports no radiation. Patient started experiencing this hour(s) (throughout the night) and it has been constant (improving this AM). No relieving factors improve symptom(s), Eating worsens symptoms (associates with food she had last night) . Patient notes no other symptoms.. Patient did receive the following treatments prior to arrival, none Related Data Home Medications Medication Instructions Recorded Confirmed cyanocobalamin (vitamin B-12) 1,000 mcg PO DAILY #1 07/29/16 06/03/21 cholecalciferol (vitamin D3) 25 25 mcg PO DAILY 12/29/19 06/03/21 mcg (1,000 unit) capsule prednisone 5 mg tablet 5 mg PO DAILY #30 tab-cap 12/29/19 06/03/21 oxybutynin chloride 5 mg 5 mg PO DAILY #90 tab-cap 05/15/20 06/03/21 tablet,extended release 24 hr hydroxyzine HCl 10 mg tablet 10 mg PO TID PRN 02/01/21 06/03/21 mirtazapine 7.5 mg tablet 7.5 mg PO QHS #90 tab 02/01/21 06/03/21 magnesium 500 mg tablet 15 mg PO DAILY 03/19/21 06/03/21 ondansetron 4 mg PO Q6H PRN #7 tab 06/03/21 Previous Rx's Medication Instructions Recorded oxybutynin chloride 5 mg 5 mg PO DAILY #90 tab-cap 05/15/20 tablet,extended release 24 hr mirtazapine 7.5 mg tablet 7.5 mg PO QHS #90 tab 02/01/21 ondansetron 4 mg PO Q6H PRN #7 tab 06/03/21 Allergies Allergy/AdvReac Type Severity Reaction Status Date / Time benzonatate Allergy Intermediate Verified 06/03/21 08:54 rofecoxib AdvReac Mild NAUSEA Unverified 06/03/21 08:54 methotrexate AdvReac Unknown Unverified 06/03/21 08:54 shellfish derived AdvReac NAUSEA & Unverified 06/03/21 08:54 VOMITING General Stated Complaint: Nausea/Vomit/Diar EZEKIEL: 3 Review of Systems Constitutional Constitutional: Reports as per HPI, Denies chills, Reports fatigue (states she did not sleep much last night and is now fatigued), Denies fever(s) and Denies headache(s) ENT Ears, Nose, Mouth, and Throat: Denies headache(s) Cardiovascular Cardiovascular: Reports as per HPI, Denies chest pain and Denies dyspnea Respiratory Respiratory: Reports as per HPI, Denies cough and Denies dyspnea Gastrointestinal Gastrointestinal: Reports as per HPI Musculoskeletal Musculoskeletal: Reports as per HPI and Denies back pain Integumentary/Breasts Skin/Breast: Reports as per HPI and Denies rash Neurologic Neurologic: Reports as per HPI and Denies headache(s) Endocrine Endocrine: Reports fatigue (states she did not sleep much last night and is now fatigued) [facility] Medical History DJD of right shoulder Hyperlipidemia Inflammatory polyarthropathy Followed by [facility] [place] Rheumatology, 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 Periodic clobetasol use. Major depressive disorder Osteoporosis Reclast annually. 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 Son No problems noted. Daughter No problems noted. Maternal Grandfather No problems noted. Maternal Grandmother No problems noted. Paternal Grandfather No problems noted. Paternal Grandmother No problems noted. Social History Smoking/Tobacco Use Status: Never Second Hand Exposure: Yes Smoking risk assessment performed?: Yes Alcohol Intake: never Drug use: Never Substance use type: does not use Household members: none Housing: house Number of Children: 3 Communication Needs: Corrective Lenses Do you need help understanding health information?: Never Pets and animals: Yes Pets and animals: cat(s) Sexually active: No Do you think of yourself as: straight/heterosexual Current gender identity: female What is your relationship status?: How often do you talk on the phone with friends or family?: three or more times per week How often do you get together with friends or relatives?: twice per week How often do you attend jewish or sabianism services?: 4 or more times per year Do you belong to any clubs or organized social groups?: yes Panel score (0-1 are the most socially isolated patients): 3 What type of physical activity do you participate in: none Ketty/Uatsdin: Zoroastrianism Special ketty needs: No Seatbelt use: always Helmet use: No Drive intox 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: No Do you feel safe at home: Yes Do you feel safe in your relationship?: Yes Female Reproductive History Menstrual Menopause type: surgical (SILVIO/BSO) History History 4 Para 4 Hx # Term Pregnancies 4 Multiple births Hx # Pregnancies Ectopic pregnancies AB induced Hx Number of Living Children 3 AB spontaneous Exam Const General: cooperative, healthy appearing, uncomfortable, no acute distress and well developed Nutritional Appearance: average body habitus and well nourished Orientation: alert and awake HENMT Head: normal to inspection Mouth: mucous membranes dry Resp Effort & Inspection: normal respiratory effort, able to speak in complete sentences and no respiratory distress Auscultation: clear to auscultation bilaterally, no rales, no rhonchi and no wheezes Cardio Rate: regular rate Rhythm: regular rhythm Heart Sounds: S1 normal and S2 normal GI Inspection: normal to inspection Palpation: soft, no hepatosplenomegaly and nontender Percussion: normal to percussion Auscultation: normal bowel sounds Back/Spine/Pelvis Back: no CVA tenderness Skin General skin exam: no rashes or lesions noted Trauma: no lacerations or abrasions Neuro General: patient alert and patient awake Cognition: normal cognition Speech: speech normal Gait: normal gait Psych Appearance: grossly normal and well kempt Mental Status: mental status grossly normal Speech and Movement: speech and movement normal Course Vital Signs Vital signs: Vital Signs Temperature 36.4 C L 06/03/21 08:50 Pulse 56 L 06/03/21 08:50 Respiratory Rate 20 06/03/21 08:50 Blood Pressure 139/74 06/03/21 08:50 Pulse Oximetry 91 L 06/03/21 08:50 Temperature 36.4 C L 06/03/21 08:50 Temperature Source Skin 06/03/21 08:50 Pulse 56 L 06/03/21 08:50 Respiratory Rate 20 06/03/21 08:50 Blood Pressure 139/74 06/03/21 08:50 Blood Pressure Position Sitting 06/03/21 08:50 Pulse Oximetry 91 L 06/03/21 08:50 Oxygen Delivery Method Room Air 06/03/21 08:50 Oxygen Flow Rate 0 06/03/21 08:50 Pain Level 2 06/03/21 08:50
[2021-06-03] MEDS: Normal Saline 1,000 ML 1000 ML IV (09:10)
[2021-06-03 09:13] LABS: Abs Immature Grans 0.04 10^3/uL (0.0-0.06); Absolute Basophil Count 0.02 10^3/uL (0.0-0.2); Absolute Eosinophil Count 0.16 10^3/uL (0.0-0.7); Absolute Lymphocyte Count 0.53 10^3/uL (1.2-3.4); Absolute Monocyte Count 0.56 10^3/uL (0.1-0.8); Absolute Neutrophil Count 9.42 10^3/uL (1.2-6.7); Basophils % 0.2; Eosinophils % 1.5; HCT 44.3 % (36.0-46.0); HGB 14.7 g/dL (11.2-15.7); Immature Grans % 0.4; Lymphocytes % 4.9; MCH 32.5 pg (27.0-33.0); MCHC 33.2 % (32.0-36.0); MCV 97.8 fL (80-95); MPV 9.9 fL (8.0-11.0); Monocytes % 5.2; Neutrophils % 87.8; Nucleated RBC 0 %; Platelet Count 352 10^3/uL (130-400); RBC 4.53 10^6/uL (3.93-5.22); RDW 12.8 % (11.7-14.6); WBC 10.73 10^3/uL (4.4-10.8)
[2021-06-03] MEDS: Ondansetron 4 MG/2 ML VIAL IVP (09:23)
[2021-06-03 09:34] LABS: Lipase 36 U/L (73-393)
[2021-06-03 09:36] LABS: ALT 13 U/L (14-59); AST 11 U/L (15-37); Albumin 3.6 g/dL (3.4-5.0); Alkaline Phosphatase 54 U/L (46-116); Anion Gap 8.1 mmol/L (3-11); BUN 29 mg/dL (7-18); Bilirubin, Total 0.8 mg/dL (0.2-1.0); CO2 27.9 mmol/L (21.0-32.0); CREATININE 0.7 mg/dL (0.55-1.02); Calcium 8.1 mg/dL (8.5-10.1); Chloride 104 mmol/L (98-107); Glucose 142 mg/dL (74-106); Magnesium 2.2 mg/dL (1.8-2.4); Potassium 3.4 mmol/L (3.5-5.1); Sodium 140 mmol/L (136-145); Total Protein 6.8 g/dL (6.4-8.2)
[2021-06-03 10:01] VITALS: BP 138/49; PULSE 74; RESP 16; TEMP 36.8; O2SAT 97
--- NOTE | 2021-06-03 10:02 | NUR.NOTE ---
Nursing Note: Pt laying on stretcher alert,oriented, pleasant and cooperative. C/O feeling cold- warm blanket provided. Fluids have finished, repeat vitals stable. Feels better after zofran, no vomiting or diarrhea has occurred during stay.
[2021-06-03] MEDS: Ondansetron O.D.T. 4 MG TABEF, 3 TABS/BTL PO (10:30)
== END 2021-06-03 10:34 | disposition home or self-care (01) ==
PROVIDERS: Emergency Provider Physician Assistant; PCP Nurse Practitioner Family
DX: R11.2 Nausea with vomiting, unspecified (principal); R19.7 Diarrhea, unspecified
CPT/HCPCS: 80053; 83690; 96361; 96374; 99284; 83735; 85025; 99283; J2405

== ENCOUNTER → 2021-07-09 10:01 | Outpatient (BNVA) | payer MEDICARE, SELFPAY | PROVIDERS: PCP Nurse Practitioner Family; Visit Provider Student in an Organized Health Care Education/Training Program | DX: M19.011 Primary osteoarthritis, right shoulder (principal); M75.101 Unspecified rotator cuff tear or rupture of right shoulder, not specified as traumatic; Z98.890 Other specified postprocedural states | CPT/HCPCS: 99212; 99213 ==

== ENCOUNTER 2021-07-17 15:21 | Outpatient (REF) | payer MEDICARE, SELFPAY ==
[2021-07-17 14:03] LABS: HCT 42.3 % (36.0-46.0); HGB 13.7 g/dL (11.2-15.7); MCH 31.6 pg (27.0-33.0); MCHC 32.4 % (32.0-36.0); MCV 97.5 fL (80-95); MPV 10.6 fL (8.0-11.0); Platelet Count 335 10^3/uL (130-400); RBC 4.34 10^6/uL (3.93-5.22); RDW 12.6 % (11.7-14.6); RDW-SD 45.2 fL
[2021-07-17 14:08] LABS: Anion Gap 6.9 mmol/L (3-11); BUN 14 mg/dL (7-18); CO2 28.1 mmol/L (21.0-32.0); CREATININE 0.8 mg/dL (0.55-1.02); Calcium 8.9 mg/dL (8.5-10.1); Chloride 104 mmol/L (98-107); Glucose 124 mg/dL (74-106); Potassium 4.4 mmol/L (3.5-5.1); Sodium 139 mmol/L (136-145)
== END 2021-07-17 15:22 | disposition home or self-care (01) ==
LOC: LBN 15:21
PROVIDERS: PCP Nurse Practitioner Family; Visit Provider Physician Assistant Medical
DX: R10.9 Unspecified abdominal pain (principal)
CPT/HCPCS: 80048; 85027; 87077; 87086; 87186

== ENCOUNTER 2021-08-06 02:22 | Outpatient (CLI) | payer MEDICARE, SELFPAY ==
--- NOTE | 2021-08-22 09:33 | W.CARDEVENT ---
Date of service: 08/22/21 Time of Service: 09:33 Cardiac Event Recorder Referring Provider:: Destiny Brooke Indications:: Irregular heart rate Cardiac Event Note: This is a 14-day Holter monitor ordered for an irregular heart rate Predominant rhythm was sinus with an average rate of 62. Minimum was 41, maximum 115 There were rare ventricular ectopic beats. There was 1 ventricular triplet There were occasional to frequent atrial premature beats comprising 8.46% of total. A total of 15 self-limited atrial runs occurred the longest of which was 3 beats in duration There was no atrial fibrillation, no high-grade AV block, no pauses greater than 3 seconds No patient symptoms were reported
== END 2021-08-06 02:23 | disposition home or self-care (01) ==
PROVIDERS: PCP Nurse Practitioner Family; Visit Provider Nurse Practitioner Family
DX: I49.8 Other specified cardiac arrhythmias (principal)
CPT/HCPCS: 93246

== ENCOUNTER → 2021-08-21 09:53 | Outpatient (BNVA) | payer MEDICARE, SELFPAY | PROVIDERS: PCP Nurse Practitioner Family; Referring Provider Nurse Practitioner Family | DX: M75.101 Unspecified rotator cuff tear or rupture of right shoulder, not specified as traumatic (principal); M12.811 Other specific arthropathies, not elsewhere classified, right shoulder | CPT/HCPCS: 20610; J1030 ==

== ENCOUNTER 2021-08-22 09:33 | Outpatient (CLI) | payer MEDICARE, SELFPAY | END 2021-08-22 09:34 | LOC: CARDO 08-23 10:18 | PROVIDERS: PCP Nurse Practitioner Family; Referring Provider Nurse Practitioner Family; Visit Provider Internal Medicine Cardiovascular Disease | DX: I49.8 Other specified cardiac arrhythmias (principal); I49.3 Ventricular premature depolarization; I49.1 Atrial premature depolarization | CPT/HCPCS: 93248 ==

== ENCOUNTER 2021-12-31 19:29 | Outpatient (REF) | payer MEDICARE, SELFPAY ==
[2021-12-31 21:00] LABS: ALT 12 U/L (14-59); AST 10 U/L (15-37); Albumin 3.5 g/dL (3.4-5.0); Alkaline Phosphatase 56 U/L (46-116); BUN 23 mg/dL (7-18); Bilirubin, Total 0.3 mg/dL (0.2-1.0); CREATININE 0.7 mg/dL (0.55-1.02); Calcium 8.7 mg/dL (8.5-10.1); Chloride 103 mmol/L (98-107); Glucose 170 mg/dL (74-106); Magnesium 2.3 mg/dL (1.8-2.4); Sodium 138 mmol/L (136-145); Total Protein 6.5 g/dL (6.4-8.2)
== END 2021-12-31 19:30 | disposition home or self-care (01) ==
LOC: LBN 19:29
PROVIDERS: PCP Nurse Practitioner Family; Visit Provider Nurse Practitioner Family
DX: R00.2 Palpitations (principal)
CPT/HCPCS: 80053; 83735

== ENCOUNTER 2022-01-24 19:28 | Outpatient (REF) | payer MEDICARE, SELFPAY ==
[2022-01-24 16:32] LABS: Bacteria Many HPF (Negative); C & S Indicated? C&S Done As Ordered; Casts Negative LPF (Negative); Crystals Negative HPF (Negative); Epithelial Cells Few HPF (Negative); Mucus Negative (Negative); RBC 0-2 HPF (0-2); WBC 20-50 HPF (0-5)
== END 2022-01-24 19:29 | disposition home or self-care (01) ==
LOC: LBN 19:28
PROVIDERS: PCP Nurse Practitioner Family; Visit Provider Clinical Nurse Specialist
DX: R35.0 Frequency of micturition (principal)
CPT/HCPCS: 87077; 81015; 87086; 87186

== ENCOUNTER 2022-06-25 14:02 | Outpatient (REF) | payer MEDICARE, SELFPAY ==
[2022-06-25 14:37] LABS: Bacteria Few HPF (Negative); C & S Indicated? C&S Done As Ordered; Casts Negative LPF (Negative); Crystals Negative HPF (Negative); Epithelial Cells Few HPF (Negative); Mucus Negative (Negative); RBC 0-2 HPF (0-2)
== END 2022-06-25 14:03 | disposition home or self-care (01) ==
LOC: LBN 14:02
PROVIDERS: PCP Nurse Practitioner Family; Visit Provider Physician Assistant Medical
DX: R35.0 Frequency of micturition (principal)
CPT/HCPCS: 81015; 87086

== ENCOUNTER → 2022-07-15 13:15 | Outpatient (BNVA) | payer MEDICARE, SELFPAY | PROVIDERS: PCP Nurse Practitioner Family; Referring Provider Nurse Practitioner Family; Visit Provider Student in an Organized Health Care Education/Training Program | DX: M75.101 Unspecified rotator cuff tear or rupture of right shoulder, not specified as traumatic (principal); M12.811 Other specific arthropathies, not elsewhere classified, right shoulder | CPT/HCPCS: 20610; 99213; J1040 ==

== ENCOUNTER 2022-07-17 11:34 | Outpatient (CLI) | payer MEDICARE, SELFPAY ==
--- NOTE | 2022-07-17 11:00 | DI.RAD_ITS ---
Exam(s) XR FOOT LT COMPLETE EXAM: XR FOOT LT COMPLETE CLINICAL HISTORY: L foot pain M79.673. TECHNIQUE: 2D digital imaging was performed. COMPARISON: CR,XR XR FOOT RT COMPLETE from 12/30/2020 FINDINGS: 3 views No evidence of acute fracture or diastasis of the Lisfranc joint. There is significant degenerative changes at the 2nd and 3rd tarsometatarsal joints. Also some degen erative change at the 4th tarsometatarsal joint between the bases of the 4th metatarsal and medial as pect of the cuboid. There appears to be relative sparing of the 1st and 5th tarsometatarsal joints. Hallux valgus is noted. Mild narrowing of the metatarsophalangeal joint of the great toe. There is medial subluxation of the phalanges of the 3rd toe which cross under the phalanges of the 2nd toe. Small inferior calcaneal spur is noted. IMPRESSION: Findings as above, most prominent at the tarsometatarsal joints. DATA REPOSITORY: RADIATION DOSE DELIVERED:
--- NOTE | 2022-07-17 11:00 | DI.RAD_ITS ---
Exam(s) XR FOOT RT COMPLETE EXAM: XR FOOT RT COMPLETE CLINICAL HISTORY: L foot pain, comparison M79.673 PAIN IN FOOT. TECHNIQUE: 2D digital imaging was performed. COMPARISON: CR,XR XR FOOT RT COMPLETE from 12/30/2020 FINDINGS: 3 views No evidence of fracture or diastasis of the Lisfranc joint. Hallux valgus is unchanged from the prev ious study. Advanced degenerative changes are again noted at tarsometatarsal joints, similar to prev ious. The this involves the 2nd, 3rd, and 4th tarsometatarsal joints. There is sparing of the 1st a nd 5th tarsometatarsal joints, similar to the opposite side. Also noted is significant degenerative change at the articulation between the navicular and cuneiform XXXX, also similar to previous. Moderate size inferior calcaneal spur is unchanged. IMPRESSION: Degenerative changes as described above but without significant radiographic change when compared to December 2020. DATA REPOSITORY: RADIATION DOSE DELIVERED:
== END 2022-07-17 11:54 ==
LOC: DI 11:40
PROVIDERS: PCP Nurse Practitioner Family; Visit Provider Podiatrist Foot & Ankle Surgery
DX: M79.671 Pain in right foot (principal); M79.672 Pain in left foot; M20.11 Hallux valgus (acquired), right foot; M77.31 Calcaneal spur, right foot; M20.12 Hallux valgus (acquired), left foot; M77.32 Calcaneal spur, left foot; M19.071 Primary osteoarthritis, right ankle and foot; M19.072 Primary osteoarthritis, left ankle and foot
CPT/HCPCS: 73630

== ENCOUNTER 2022-08-04 15:40 | Outpatient (REF) | payer MEDICARE, SELFPAY ==
[2022-08-04 20:51] LABS: HCT 41.4 % (36.0-46.0); HGB 13.9 g/dL (11.2-15.7); MCH 31.5 pg (27.0-33.0); MCHC 33.6 % (32.0-36.0); MCV 94 fL (80-95); MPV 10.4 fL (8.0-11.0); Platelet Count 360 10^3/uL (130-400); RBC 4.41 10^6/uL (3.93-5.22); RDW 13.7 % (11.7-14.6); RDW-SD 47.1 fL; WBC 9.45 10^3/uL (4.4-10.8)
[2022-08-04 21:10] LABS: Uric Acid 4.1 mg/dL (2.6-6.0)
== END 2022-08-04 15:41 | disposition home or self-care (01) ==
LOC: LBN 15:40
PROVIDERS: PCP Nurse Practitioner Family; Visit Provider Nurse Practitioner Family
DX: E78.5 Hyperlipidemia, unspecified (principal); M79.673 Pain in unspecified foot
CPT/HCPCS: 85027; 84550

== ENCOUNTER 2022-08-05 02:34 | Outpatient (CLI) | payer MEDICARE, SELFPAY ==
--- NOTE | 2022-08-05 07:30 | DI.US_ITS ---
Exam(s) US LOWER EXTREMITY VENOUS LT EXAM: US LOWER EXTREMITY VENOUS LT CLINICAL HISTORY: evaluate DVT,LT FOOT PAIN, M79.672, TECHNIQUE: Grayscale, color, and doppler imaging of the deep venous system of the left lower extremi ty was performed. COMPARISON: No exams were available for comparison FINDINGS: There is no evidence of intraluminal thrombus and there is normal compression and augmentation demons trated within the common femoral vein, femoral vein, and popliteal vein. In the ipsilateral calf the interrogated veins also exhibit normal compression/ augmentation properti es. The ipsilateral saphenofemoral junction is patent. IMPRESSION: 1. No evidence of DVT in the left lower extremity. DATA REPOSITORY:
== END 2022-08-05 02:54 ==
LOC: DI 02:35
PROVIDERS: PCP Nurse Practitioner Family; Visit Provider Nurse Practitioner Family
DX: M79.672 Pain in left foot (principal)
CPT/HCPCS: 93971

== ENCOUNTER 2022-09-11 02:43 | Outpatient (CLI) | payer MEDICARE, SELFPAY ==
[2022-09-11 11:26] LABS: Abs Immature Grans 0.06 10^3/uL (0.0-0.06); Absolute Basophil Count 0.09 10^3/uL (0.0-0.2); Absolute Eosinophil Count 0.22 10^3/uL (0.0-0.7); Absolute Lymphocyte Count 1.95 10^3/uL (1.2-3.4); Absolute Monocyte Count 0.67 10^3/uL (0.1-0.8); Absolute Neutrophil Count 6.04 10^3/uL (1.2-6.7); Eosinophils % 2.4; HCT 44.7 % (36.0-46.0); HGB 14.4 g/dL (11.2-15.7); Immature Grans % 0.7; Lymphocytes % 21.6; MCH 31.2 pg (27.0-33.0); MCHC 32.2 % (32.0-36.0); MCV 97 fL (80-95); MPV 10.1 fL (8.0-11.0); Monocytes % 7.4; Neutrophils % 66.9; Platelet Count 398 10^3/uL (130-400); RBC 4.61 10^6/uL (3.93-5.22); RDW 14.1 % (11.7-14.6); RDW-SD 50.6 fL; WBC 9.03 10^3/uL (4.4-10.8)
[2022-09-11 11:59] LABS: ALT 16 U/L (14-59); AST 10 U/L (15-37); Albumin 3.6 g/dL (3.4-5.0); Alkaline Phosphatase 63 U/L (46-116); Anion Gap 6.4 mmol/L (3-11); BUN 16 mg/dL (7-18); Bilirubin, Total 0.5 mg/dL (0.2-1.0); C-Reactive Protein 0.16 mg/dL (0.0-0.3); CO2 29.6 mmol/L (21.0-32.0); CREATININE 0.8 mg/dL (0.55-1.02); Calcium 8.9 mg/dL (8.5-10.1); Chloride 105 mmol/L (98-107); Estimated GFR 72.16 (mL/min/1.73m2); Glucose 110 mg/dL (74-106); Potassium 3.9 mmol/L (3.5-5.1); Sodium 141 mmol/L (136-145); Total Protein 6.8 g/dL (6.4-8.2)
== END 2022-09-11 02:44 | disposition home or self-care (01) ==
LOC: LBO 02:43
PROVIDERS: PCP Nurse Practitioner Family; Visit Provider Internal Medicine Rheumatology
DX: M06.4 Inflammatory polyarthropathy (principal)
CPT/HCPCS: 36415; 80053; 85025; 86140

== ENCOUNTER → 2022-10-14 10:24 | Outpatient (BNVA) | payer MEDICARE, SELFPAY | PROVIDERS: PCP Nurse Practitioner Family; Referring Provider Nurse Practitioner Family; Visit Provider Student in an Organized Health Care Education/Training Program | DX: M12.811 Other specific arthropathies, not elsewhere classified, right shoulder (principal); M75.101 Unspecified rotator cuff tear or rupture of right shoulder, not specified as traumatic | CPT/HCPCS: 20610; 99213; J1040 ==

== ENCOUNTER 2023-01-20 03:37 | Outpatient (CLI) | payer MEDICARE, SELFPAY ==
[2023-01-20 10:59] LABS: Abs Immature Grans 0.04 10^3/uL (0.0-0.06); Absolute Basophil Count 0.08 10^3/uL (0.0-0.2); Absolute Eosinophil Count 0.28 10^3/uL (0.0-0.7); Absolute Lymphocyte Count 2.24 10^3/uL (1.2-3.4); Absolute Neutrophil Count 5.17 10^3/uL (1.2-6.7); Eosinophils % 3.3; HCT 41.7 % (36.0-46.0); HGB 13.7 g/dL (11.2-15.7); Immature Grans % 0.5; Lymphocytes % 26.6; MCH 31.9 pg (27.0-33.0); MCHC 32.9 % (32.0-36.0); MCV 97 fL (80-95); Monocytes % 7.1; Neutrophils % 61.5; Platelet Count 366 10^3/uL (130-400); RDW-SD 46.5 fL; WBC 8.41 10^3/uL (4.4-10.8)
[2023-01-20 12:59] LABS: ALT 12 U/L (14-59); AST 11 U/L (15-37); Albumin 3.6 g/dL (3.4-5.0); Alkaline Phosphatase 55 U/L (46-116); Anion Gap 8.9 mmol/L (3-11); BUN 15 mg/dL (7-18); Bilirubin, Total 0.6 mg/dL (0.2-1.0); C-Reactive Protein 0.39 mg/dL (0.0-0.3); CO2 28.1 mmol/L (21.0-32.0); CREATININE 0.8 mg/dL (0.55-1.02); Calcium 9.1 mg/dL (8.5-10.1); Chloride 108 mmol/L (98-107); Estimated GFR 72.16 (mL/min/1.73m2); Glucose 94 mg/dL (74-106); Potassium 4.5 mmol/L (3.5-5.1); Sodium 145 mmol/L (136-145); Total Protein 6.8 g/dL (6.4-8.2)
== END 2023-01-20 03:38 | disposition home or self-care (01) ==
PROVIDERS: PCP Nurse Practitioner Family; Visit Provider Internal Medicine Rheumatology
DX: M06.4 Inflammatory polyarthropathy (principal); M12.811 Other specific arthropathies, not elsewhere classified, right shoulder; M75.101 Unspecified rotator cuff tear or rupture of right shoulder, not specified as traumatic
CPT/HCPCS: 20610; 36415; 80053; 99213; 85025; 86140; J1040

== ENCOUNTER 2023-01-22 08:45 | Emergency (ER) | payer MEDICARE, SELFPAY ==
[2023-01-22] VITALS (10 sets, daily range): BP systolic 148–195; BP diastolic 63–79; PULSE 60–90; RESP 14–26; TEMP 36.2; O2SAT 97
--- NOTE | 2023-01-22 08:45 | RT.EKG_ITS ---
APPROVED REPORT Exam: Resting ECG Reason for Exam: SOB Patient Location: E HR:64 bpm ECG Measurements Heart Rate 64 AXIS FL 190 P 13 QRSd 94 QRS 7 QT 408 T 100 QTc 420 Conclusion Sinus rhythm...normal P axis, V-rate 60- 99 Anterior infarct, old...Q >40mS, abnormal ST-T, V2-V5 sinus rhythm, baseline artifact V6. WD
[2023-01-22] MEDS: Albuterol HFA 8 GM 60 PUFF INH IH (09:34)
[2023-01-22] MEDS: Inhaler, Assist Device 1 EACH MC (09:34)
[2023-01-22] MEDS: Normal Saline 500 ML IV (09:34)
[2023-01-22 09:43] LABS: Abs Immature Grans 0.07 10^3/uL (0.0-0.06); Absolute Eosinophil Count 0.13 10^3/uL (0.0-0.7); Absolute Lymphocyte Count 2.15 10^3/uL (1.2-3.4); Basophils % 0.6; HCT 40.8 % (36.0-46.0); HGB 13.8 g/dL (11.2-15.7); Immature Grans % 0.6; Lymphocytes % 17.2; MCH 32.1 pg (27.0-33.0); MCHC 33.8 % (32.0-36.0); MCV 95 fL (80-95); MPV 10.1 fL (8.0-11.0); Monocytes % 6.6; Platelet Count 377 10^3/uL (130-400); RDW 12.8 % (11.7-14.6); RDW-SD 44.3 fL
[2023-01-22 09:49] LABS: Absolute Basophil Count 0.08 10^3/uL (0.0-0.2); Absolute Monocyte Count 0.83 10^3/uL (0.1-0.8); Absolute Neutrophil Count 9.25 10^3/uL (1.2-6.7)
[2023-01-22 09:51] LABS: Source Nasal/Nares
[2023-01-22 09:58] LABS: Bilirubin Negative (Negative); Blood Trace-intact (Negative); Clarity Clear (Clear); Glucose Negative (Negative); Ketones Negative (Negative); Leukocyte Esterase Moderate (Negative); Nitrite Negative (Negative); Specific Gravity <= 1.005 (1.005-1.025); Urobilinogen 0.2 mg/dL (Up to 0.2); pH 6.5 (5-8)
[2023-01-22 10:07] LABS: ALT 12 U/L (14-59); AST 10 U/L (15-37); Albumin 3.7 g/dL (3.4-5.0); Alkaline Phosphatase 60 U/L (46-116); Anion Gap 9.6 mmol/L (3-11); BUN 17 mg/dL (7-18); Bilirubin, Total 0.5 mg/dL (0.2-1.0); CO2 25.4 mmol/L (21.0-32.0); CREATININE 0.8 mg/dL (0.55-1.02); Calcium 8.8 mg/dL (8.5-10.1); Chloride 106 mmol/L (98-107); Estimated GFR 72.16 (mL/min/1.73m2); Glucose 106 mg/dL (74-106); Magnesium 2.1 mg/dL (1.8-2.4); Potassium 3.6 mmol/L (3.5-5.1); Sodium 141 mmol/L (136-145); Total Protein 7.1 g/dL (6.4-8.2)
[2023-01-22 10:11] LABS: Bacteria Rare HPF (Negative); C & S Indicated? Yes; Casts Negative LPF (Negative); Crystals Negative HPF (Negative); Epithelial Cells Few HPF (Negative); Mucus Negative (Negative); RBC 0-2 HPF (0-2)
[2023-01-22 10:23] LABS: COVID-19 PCR Negative (Negative)
--- NOTE | 2023-01-22 10:55 | DI.RAD_ITS ---
Exam(s) XR CHEST 2V PA LATERAL EXAM: XR CHEST 2V PA LATERAL CLINICAL HISTORY: cough, shortness of breath. TECHNIQUE: 2D digital imaging was performed. COMPARISON: CR XR CHEST 2V PA LATERAL from 01/02/2020 FINDINGS: 2 views: Heart size is normal. The mediastinum is not widened. Lungs are clear. No infiltrates nor pleural effusions. IMPRESSION: No acute pulmonary findings. DATA REPOSITORY: RADIATION DOSE DELIVERED:
--- NOTE | 2023-01-22 19:02 | W.ED.GENAD ---
Discharge Plan Disposition Patient Disposition: Home Discharge Details Clinical Impression: Bronchitis Primary Care Provider: Destiny Brooke ED Provider: Leticia Allen Home Meds and New Rx's Prescriptions: New doxycycline hyclate 100 mg capsule 100 mg PO BID Qty: 20 0RF metoclopramide HCl [Reglan] 5 mg tablet 5 mg PO QAC Qty: 10 0RF Rx Instructions: administer 30 minutes before meals Continued hydroxyzine HCl 10 mg tablet 10 mg PO TID PRN (Reason: anxiety) magnesium 500 mg tablet 15 mg PO DAILY mirtazapine 7.5 mg tablet 7.5 mg PO QHS Qty: 90 4RF aspirin [Adult Aspirin Regimen] 81 mg tablet,delayed release (DR/EC) 81 mg PO DAILY prednisone 5 mg tablet 5 mg PO DAILY Qty: 30 cholecalciferol (vitamin D3) 25 mcg (1,000 unit) capsule 25 mcg PO DAILY cyanocobalamin (vitamin B-12) 2,500 MCG tablet 1,000 mcg PO DAILY Qty: 1 Discharge Instructions Instructions: Acute Bronchitis (ED) Additional Instructions: Take the antibiotic as prescribed Yogurt daily while on antibiotic Take Reglan as needed for nausea and vomiting Increase fluid hydration Recheck with your primary care physician on Thursday and return earlier should you have new or worsening complaints Referrals: Destiny Brooke, [employer] [Primary Care Provider] - Medical Decision Making Well-appearing 87-year-old female with stable vitals, chest x-ray does not show evidence of pneumonia, low clinical suspicion for pulmonary embolism, diagnostic labs do not show evidence of significant acute abnormality, able to tolerate p.o., at this time I will treat patient for bronchitis that she been sick with 2 weeks of symptoms, will give Zofran for home, a 10-day course of doxycycline, albuterol which patient states helped her cough and breathing, she will continue on her prescribed dose of prednisone, I see no clear indication for increasing this at this time, her lungs are clear to auscultation, I recommend outpatient recheck next week with her primary care physician, return precautions reviewed and patient expressed understanding HPI General Date/Time Provider Initiated Documentation: 01/22/23 08:57. HPI Narrative: This 87-year-old female presents with report of cough, shortness of breath post coughing, nausea, vomiting for the past 2 weeks. Denies any known sick contacts. Denies fever or chills. Denies current shortness of breath. Denies known tick bites. Does take prednisone daily for history of arthritis per patient. Denies any additional immunosuppressive's. Denies any calf pain or swelling. Denies any recent flights, surgeries, long drives. Related Data Home Medications Medication Instructions Recorded Confirmed cyanocobalamin (vitamin B-12) 1,000 mcg PO DAILY ##1 07/29/16 01/22/23 2,500 mcg tablet cholecalciferol (vitamin D3) 25 25 mcg PO DAILY 12/29/19 01/22/23 mcg (1,000 unit) capsule prednisone 5 mg tablet 5 mg PO DAILY #30 tab-caps 12/29/19 01/22/23 hydroxyzine HCl 10 mg tablet 10 mg PO TID PRN anxiety 02/01/21 01/22/23 magnesium 500 mg tablet 15 mg PO DAILY 03/19/21 01/22/23 aspirin 81 mg tablet,delayed 81 mg PO DAILY 08/01/21 01/22/23 release (Adult Aspirin Regimen) mirtazapine 7.5 mg tablet 7.5 mg PO QHS #90 tabs 03/14/22 01/22/23 doxycycline hyclate 100 mg capsule 100 mg PO BID #20 caps 01/22/23 metoclopramide HCl 5 mg tablet 5 mg PO QAC #10 tabs 01/22/23 (Reglan) Previous Rx's Medication Instructions Recorded mirtazapine 7.5 mg tablet 7.5 mg PO QHS #90 tabs 03/14/22 doxycycline hyclate 100 mg capsule 100 mg PO BID #20 caps 01/22/23 metoclopramide HCl 5 mg tablet 5 mg PO QAC #10 tabs 01/22/23 (Reglan) Allergies Allergy/AdvReac Type Severity Reaction Status Date / Time benzonatate Allergy Intermediate Verified 01/22/23 08:54 rofecoxib AdvReac Mild NAUSEA Verified 01/22/23 08:54 methotrexate AdvReac Unknown Verified 01/22/23 08:54 shellfish derived AdvReac NAUSEA & Verified 01/22/23 08:54 VOMITING General Stated Complaint: RespSymp EZEKIEL: 3 PFSH All Active Problems (Updated 01/22/23 @ 11:37 by ULISSES Doll) Bronchitis (Acute) Peripheral vascular disease, unspecified (Chronic) Foot pain (Acute) Inflammatory polyarthropathy (Chronic) Followed by [facility] [place] Rheumatology, 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 Dexa 2018 Prediabetes (Chronic) Rotator cuff tear arthropathy of right shoulder (Chronic) Most recent Depo-Medrol injection: 10/14/22; 07/15/22; 08/21/21;05/20/2021 Pelvic organ prolapse quantification stage 3 cystocele (Chronic) Hiatal hernia (Chronic) Lichen sclerosus et atrophicus of the vulva (Chronic) Diagnosed 1985 with biopsy at [facility] [place]. 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 Son No problems noted. Daughter No problems noted. Maternal Grandfather No problems noted. Maternal Grandmother No problems noted. Paternal Grandfather No problems noted. Paternal Grandmother No problems noted. Social History Smoking/Tobacco Use Status: Never Second Hand Exposure: Yes Smoking risk assessment performed?: Yes Alcohol Intake: never Drug use: Never Substance use type: does not use Household members: none Housing: house Number of Children: 3 Communication Needs: Corrective Lenses Do you need help understanding health information?: Never Pets and animals: Yes Pets and animals: cat(s) Sexually active: No Do you think of yourself as: straight/heterosexual Current gender identity: female What is your relationship status?: How often do you talk on the phone with friends or family?: three or more times per week How often do you get together with friends or relatives?: twice per week How often do you attend druze or latter day services?: 4 or more times per year Do you belong to any clubs or organized social groups?: yes Panel score (0-1 are the most socially isolated patients): 3 What type of physical activity do you participate in: none Ketty/Buddhist: Cheondoism Special ketty needs: No Seatbelt use: always Helmet use: No 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 Do you feel safe at home: Yes Do you feel safe in your relationship?: Yes Female Reproductive History Menstrual Menopause type: surgical (SILVIO/BSO) History History 4 Para 4 Hx # Term Pregnancies 4 Multiple births Hx # Pregnancies Ectopic pregnancies AB induced Hx Number of Living Children 3 AB spontaneous Course Vital Signs Vital signs: Vital Signs Temperature 36.2 C L 01/22/23 08:49 Pulse 77 01/22/23 08:49 Respiratory Rate 18 01/22/23 08:49 Blood Pressure 195/79 H 01/22/23 08:49 Pulse Oximetry 97 01/22/23 08:49 Temperature 36.2 C L 01/22/23 08:49 Temperature Source Temporal Artery Scan 01/22/23 08:49 Pulse 90 01/22/23 09:18 Pulse 64 01/22/23 09:20 Respiratory Rate 16 01/22/23 09:20 Respiratory Effort Short of Breath 01/22/23 09:00 Respiratory Depth Shallow 01/22/23 09:00 Blood Pressure 148/71 H 01/22/23 09:18 Blood Pressure Mean 88 01/22/23 09:15 Blood Pressure Position Sitting 01/22/23 08:49 Pulse Oximetry 97 01/22/23 09:18 Oxygen Delivery Method Room Air 01/22/23 09:18 Oxygen Flow Rate 0 01/22/23 09:18 Lab/Test Results Lab/Test Results: 01/22/23 09:37 Urine - Reflex from Ua Urine Culture - Pending Laboratory Tests Range/Units 01/22/23 01/22/23 01/22/23 08:57 08:57 09:37 WBC (4.4-10.8) 10^3/uL 12.50 H RBC (3.93-5.22) 10^6/uL 4.30 Hgb (11.2-15.7) g/dL 13.8 Hct (36.0-46.0) % 40.8 MCV (80-95) fL 95 MCH (27.0-33.0) pg 32.1 MCHC (32.0-36.0) % 33.8 RDW (11.7-14.6) % 12.8 Plt Count (130-400) 10^3/uL 377 MPV (8.0-11.0) fL 10.1 Immature Gran % 0.6 Neutrophils % 74.0 Lymphocytes % 17.2 Monocytes % 6.6 Eosinophils % 1.0 Basophils % 0.6 Nucleated RBC % (0.0-0.3) % 0.0 Absolute Neutrophils (1.2-6.7) 10^3/uL 9.25 H Absolute Lymphocytes (1.2-3.4) 10^3/uL 2.15 Absolute Monocytes (0.1-0.8) 10^3/uL 0.83 H Absolute Eosinophils (0.0-0.7) 10^3/uL 0.13 Absolute Basophils (0.0-0.2) 10^3/uL 0.08 Sodium (136-145) mmol/L 141 Potassium (3.5-5.1) mmol/L 3.6 Chloride (98-107) mmol/L 106 Carbon Dioxide (21.0-32.0) mmol/L 25.4 Anion Gap (3-11) mmol/L 9.6 BUN (7-18) mg/dL 17 Creatinine (0.55-1.02) mg/dL 0.8 Est GFR (CKD-EPI 2020) (mL/min/1.73m2) 72.16 Glucose (74-106) mg/dL 106 Calcium (8.5-10.1) mg/dL 8.8 Magnesium (1.8-2.4) mg/dL 2.1 Total Bilirubin (0.2-1.0) mg/dL 0.5 AST (15-37) U/L 10 L ALT (14-59) U/L 12 L Alkaline Phosphatase (46-116) U/L 60 Total Protein (6.4-8.2) g/dL 7.1 Albumin (3.4-5.0) g/dL 3.7 Urine Color (Yellow) Yellow Urine Clarity (Clear) Clear Urine pH (5-8) 6.5 Ur Specific [place] (1.005-1.025) <= 1.005 Urine Protein (Negative) mg/dL Negative Urine Ketones (Negative) mg/dL Negative Urine Blood (Negative) Trace-intact H Urine Nitrite (Negative) Negative Urine Bilirubin (Negative) Negative Urine Urobilinogen (Up to 0.2) mg/dL 0.2 Ur Leukocyte Esterase (Negative) Moderate H Urine RBC (0-2) HPF 0-2 Urine WBC (0-5) HPF 5-10 Ur Epithelial Cells (Negative) HPF Few Urine Crystals (Negative) HPF Negative Urine Bacteria (Negative) HPF Rare Urine Casts (Negative) LPF Negative Urine Mucus (Negative) Negative Ur Culture Indicated? Yes Urine Glucose (Negative) mg/dL Negative COVID-19 Source SARS-CoV-2 (PCR) (Negative) Range/Units 01/22/23 09:45 WBC (4.4-10.8) 10^3/uL RBC (3.93-5.22) 10^6/uL Hgb (11.2-15.7) g/dL Hct (36.0-46.0) % MCV (80-95) fL MCH (27.0-33.0) pg MCHC (32.0-36.0) % RDW (11.7-14.6) % Plt Count (130-400) 10^3/uL MPV (8.0-11.0) fL Immature Gran % Neutrophils % Lymphocytes % Monocytes % Eosinophils % Basophils % Nucleated RBC % (0.0-0.3) % Absolute Neutrophils (1.2-6.7) 10^3/uL Absolute Lymphocytes (1.2-3.4) 10^3/uL Absolute Monocytes (0.1-0.8) 10^3/uL Absolute Eosinophils (0.0-0.7) 10^3/uL Absolute Basophils (0.0-0.2) 10^3/uL Sodium (136-145) mmol/L Potassium (3.5-5.1) mmol/L Chloride (98-107) mmol/L Carbon Dioxide (21.0-32.0) mmol/L Anion Gap (3-11) mmol/L BUN (7-18) mg/dL Creatinine (0.55-1.02) mg/dL Est GFR (CKD-EPI 2020) (mL/min/1.73m2) Glucose (74-106) mg/dL Calcium (8.5-10.1) mg/dL Magnesium (1.8-2.4) mg/dL Total Bilirubin (0.2-1.0) mg/dL AST (15-37) U/L ALT (14-59) U/L Alkaline Phosphatase (46-116) U/L Total Protein (6.4-8.2) g/dL Albumin (3.4-5.0) g/dL Urine Color (Yellow) Urine Clarity (Clear) Urine pH (5-8) Ur Specific [place] (1.005-1.025) Urine Protein (Negative) mg/dL Urine Ketones (Negative) mg/dL Urine Blood (Negative) Urine Nitrite (Negative) Urine Bilirubin (Negative) Urine Urobilinogen (Up to 0.2) mg/dL Ur Leukocyte Esterase (Negative) Urine RBC (0-2) HPF Urine WBC (0-5) HPF Ur Epithelial Cells (Negative) HPF Urine Crystals (Negative) HPF Urine Bacteria (Negative) HPF Urine Casts (Negative) LPF Urine Mucus (Negative) Ur Culture Indicated? Urine Glucose (Negative) mg/dL COVID-19 Source Nasal/Nares SARS-CoV-2 (PCR) (Negative) Negative
== END 2023-01-22 12:32 | disposition home or self-care (01) ==
PROVIDERS: Emergency Provider Physician Assistant; PCP Nurse Practitioner Family
DX: J40 Bronchitis, not specified as acute or chronic (principal); R06.02 Shortness of breath; R05.9 Cough, unspecified; R42 Dizziness and giddiness; R11.10 Vomiting, unspecified
CPT/HCPCS: 36415; 80053; 87077; 87635; 93005; 96360; 99284; 71046; 81003; 81015; 83735; 85025; 87086; 87186; 93010

== ENCOUNTER 2023-03-17 11:48 | Outpatient (CLI) | payer MEDICARE, SELFPAY ==
[2023-03-17 10:49] LABS: Abs Immature Grans 0.05 10^3/uL (0.0-0.06); Absolute Basophil Count 0.07 10^3/uL (0.0-0.2); Absolute Eosinophil Count 0.18 10^3/uL (0.0-0.7); Absolute Lymphocyte Count 2.25 10^3/uL (1.2-3.4); Absolute Neutrophil Count 5.42 10^3/uL (1.2-6.7); Basophils % 0.8; Eosinophils % 2.1; HCT 38.3 % (36.0-46.0); Immature Grans % 0.6; MCH 32.5 pg (27.0-33.0); MCHC 33.9 % (32.0-36.0); MCV 96 fL (80-95); Monocytes % 8.1; Neutrophils % 62.4; Platelet Count 347 10^3/uL (130-400); RDW 13.3 % (11.7-14.6); RDW-SD 47.6 fL; WBC 8.67 10^3/uL (4.4-10.8)
[2023-03-17 11:29] LABS: ALT 14 U/L (14-59); AST 10 U/L (15-37); Albumin 3.4 g/dL (3.4-5.0); Alkaline Phosphatase 52 U/L (46-116); Anion Gap 4.9 mmol/L (3-11); BUN 23 mg/dL (7-18); Bilirubin, Total 0.5 mg/dL (0.2-1.0); C-Reactive Protein 0.23 mg/dL (0.0-0.3); CO2 30.1 mmol/L (21.0-32.0); Calcium 9.4 mg/dL (8.5-10.1); Chloride 103 mmol/L (98-107); Estimated GFR 54.87 (mL/min/1.73m2); Glucose 121 mg/dL (74-106); Potassium 4.4 mmol/L (3.5-5.1); Sodium 138 mmol/L (136-145); Total Protein 6.4 g/dL (6.4-8.2)
== END 2023-03-17 11:49 | disposition home or self-care (01) ==
LOC: LBO 11:48
PROVIDERS: PCP Nurse Practitioner Family; Visit Provider Internal Medicine Rheumatology
DX: M06.4 Inflammatory polyarthropathy (principal)
CPT/HCPCS: 36415; 80053; 85025; 86140

== ENCOUNTER → 2023-04-21 09:56 | Outpatient (BNVA) | payer MEDICARE, SELFPAY | PROVIDERS: PCP Nurse Practitioner Family; Visit Provider Student in an Organized Health Care Education/Training Program | DX: M75.101 Unspecified rotator cuff tear or rupture of right shoulder, not specified as traumatic (principal); M12.811 Other specific arthropathies, not elsewhere classified, right shoulder | CPT/HCPCS: 20610; J1040 ==

== ENCOUNTER 2023-04-23 03:51 | Outpatient (RCR) | payer MEDICARE, SELFPAY ==
[2023-04-23] MEDS: ZOLEDRONIC ACID/MANNITOL/WATER 5 MG/100 ML BTL 300 MG IVPB (11:34)
[2023-04-23] MEDS: Normal Saline Flush 10 ML SYR IVP (11:34)
== END 2023-04-28 23:59 | disposition home or self-care (01) ==
LOC: INF 03:51
PROVIDERS: PCP Nurse Practitioner Family; Visit Provider Family Medicine
DX: M81.0 Age-related osteoporosis without current pathological fracture (principal)
CPT/HCPCS: 96365; J3489

== ENCOUNTER → 2023-06-09 12:54 | Outpatient (CLI) | payer MEDICARE, SELFPAY ==
--- NOTE | 2023-06-09 | DI.RAD_ITS ---
Exam(s) XR WRIST RT COMPLETE EXAM: XR WRIST RT COMPLETE CLINICAL HISTORY: PAIN IN RT WRIST M25.531. TECHNIQUE: 2D digital imaging was performed of the right wrist. Three views were obtained. PA, lat eral and oblique views were obtained. COMPARISON: No exams were available for comparison FINDINGS: BONES: There is a question of a lucency through the distal scaphoid on the PA view only. There also a ppears to be a cyst in the distal scaphoid. No bony destructive lesion is seen. JOINTS: The carpal bones are normally aligned. Degenerative changes are seen in the wrist particularl y at the articulation with with the scaphoid and the quadrangular bones. SOFT TISSUE: Atherosclerosis. IMPRESSION: Question of a lucency through the distal scaphoid which may represent a nondisplaced fracture. Follow -up with scaphoid view and or CT scan of the wrist should be considered. Unexpected findings DATA REPOSITORY: RADIATION DOSE DELIVERED:
== END ==
PROVIDERS: PCP Nurse Practitioner Family; Visit Provider Nurse Practitioner Family
DX: M25.531 Pain in right wrist (principal)
CPT/HCPCS: 73110

== ENCOUNTER 2023-06-10 10:40 | Outpatient (CLI) | payer MEDICARE, SELFPAY ==
--- NOTE | 2023-06-10 10:15 | DI.RAD_ITS ---
Exam(s) XR WRIST RT LIMITED EXAM: XR WRIST RT LIMITED CLINICAL HISTORY: RIGHT WRIST PAIN. TECHNIQUE: 2D digital imaging was performed. Three views. COMPARISON: CR XR wrist LT comp navicular from 08/05/2018 CR XR WRIST RT COMPLETE from 06/09/2023 FINDINGS: BONES: Navicular fracture is visible. Cystic changes in distal pole of the navicular. JOINTS: Severe degenerative changes at the scaphoid trapezium- trapezoid joints. SOFT TISSUE: Normal. IMPRESSION: There the degenerative changes at the scaphoid trapezium/trapezoid joints. No fracture visible. DATA REPOSITORY: RADIATION DOSE DELIVERED:
== END 2023-06-10 10:41 | disposition home or self-care (01) ==
LOC: DIORS 10:41
PROVIDERS: PCP Nurse Practitioner Family; Referring Provider Nurse Practitioner Family; Visit Provider Student in an Organized Health Care Education/Training Program
DX: M25.531 Pain in right wrist (principal); S69.91XA Unspecified injury of right wrist, hand and finger(s), initial encounter; X58.XXXA Exposure to other specified factors, initial encounter
CPT/HCPCS: 99213; 73100

== ENCOUNTER 2023-06-29 12:54 | Emergency (ER) | payer MEDICARE, SELFPAY ==
--- NOTE | 2023-06-29 12:45 | RT.EKG_ITS ---
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 Normal axis. Intervals within normal limits. P oor R wave progression. Low voltage in limb leads similar to prior. Mild ST segment flattening V5 a ppears similar to prior dated last year. No acute injury pattern. T wave inversion in aVL has resol rigo compared to prior.
[2023-06-29 12:58] VITALS: BP 166/82; PULSE 83; RESP 18; TEMP 36.6; O2SAT 96
--- NOTE | 2023-06-29 13:00 | DI.RAD_ITS ---
Exam(s) XR CHEST 2V PA LATERAL EXAM: XR CHEST 2V PA LATERAL CLINICAL HISTORY: SOB/ PUI TECHNIQUE: 2D digital imaging was performed. COMPARISON: No exams were available for comparison FINDINGS: HEART: Normal size. Aorta: Not dilated. PULMONARY VASCULATURE: Normal. LUNGS: No infiltrate. Mild fibrotic changes. PLEURAL SPACE: No pleural effusion or pneumothorax. BONE:Stable midthoracic compression fracture. Severe degenerative changes noted in the right shoulde r. Soft tissues: Small hiatal hernia. IMPRESSION: No acute abnormality. DATA REPOSITORY: RADIATION DOSE DELIVERED:
--- NOTE | 2023-06-29 13:51 | W.ED.GENAD ---
HPI General Stated Complaint: SOB Mode of arrival: ambulatory. EZEKIEL: 3 Date/Time Provider Initiated Documentation: 06/29/23 13:08. Limitations to Documentation: no limitations. Information obtained by: patient, RN notes reviewed and old records reviewed. HPI Narrative: 88-year-old female presents to the ER with a chief complaint of shortness of breath, cough headache body aches since Thursday. She reports yellowish nasal discharge and productive cough. She denies any chest pain. She has been using an albuterol inhaler at home which she has previously been prescribed for recent pneumonia. Past medical history includes polymyalgia rheumatica, multiple surgeries. Lungs are clear to auscultation, she does have some mild expiratory wheezes in the left upper lobe. She has been in full sentences no increased work of breathing. Related Data Home Medications Medication Instructions Recorded Confirmed cyanocobalamin (vitamin B-12) 1,000 mcg PO DAILY ##1 07/29/16 06/29/23 2,500 mcg tablet cholecalciferol (vitamin D3) 25 25 mcg PO DAILY 12/29/19 06/29/23 mcg (1,000 unit) capsule prednisone 5 mg tablet 5 mg PO DAILY #30 tab-caps 12/29/19 06/29/23 hydroxyzine HCl 10 mg tablet 10 mg PO TID PRN anxiety 02/01/21 06/29/23 magnesium 500 mg tablet 15 mg PO DAILY 03/19/21 06/29/23 aspirin 81 mg tablet,delayed 81 mg PO DAILY 08/01/21 06/29/23 release (Adult Aspirin Regimen) mirtazapine 7.5 mg tablet 7.5 mg PO QHS #90 tabs 03/14/22 06/29/23 prednisone 10 mg tablet 10 mg PO DAILY PRN 01/26/23 06/29/23 Arthritis/osteoarthritis levofloxacin 750 mg tablet 750 mg PO DAILY Pneumonia 5 days 06/29/23 #5 tabs promethazine-DM 6.25 mg-15 mg/5 mL 5 ml PO QHS PRN cough 4 days #118 06/29/23 oral syrup mL Previous Rx's Medication Instructions Recorded mirtazapine 7.5 mg tablet 7.5 mg PO QHS #90 tabs 03/14/22 levofloxacin 750 mg tablet 750 mg PO DAILY Pneumonia 5 days 06/29/23 #5 tabs promethazine-DM 6.25 mg-15 mg/5 mL 5 ml PO QHS PRN cough 4 days #118 06/29/23 oral syrup mL Allergies Allergy/AdvReac Type Severity Reaction Status Date / Time benzonatate Allergy Intermediate Verified 06/10/23 10:06 amoxicillin [From Augmentin] Allergy Mild Rash Verified 06/10/23 10:06 azithromycin Allergy Mild Rash Verified 06/10/23 10:06 clavulanic acid Allergy Mild Rash Verified 06/10/23 10:06 [From Augmentin] rofecoxib AdvReac Mild NAUSEA Verified 06/10/23 10:06 methotrexate AdvReac Unknown Verified 06/10/23 10:06 shellfish derived AdvReac NAUSEA & Verified 06/10/23 10:06 VOMITING Review of Systems All systems reviewed & are unremarkable except as noted in HPI and below Respiratory Respiratory: Reports as per HPI, Reports change in phlegm color and Reports cough Gastrointestinal Gastrointestinal: Denies diarrhea, Denies nausea and Denies vomiting [facility] All Active Problems (Updated 06/29/23 @ 14:24 by Randa Gorman NP) Cough (Acute) URI (upper respiratory infection) (Acute) Right wrist injury (Acute 06/09/23) Peripheral vascular disease, unspecified (Chronic) Inflammatory polyarthropathy (Chronic) [place] [facility] [place], 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 Dexa 2018 Prediabetes (Chronic) Rotator cuff tear arthropathy of right shoulder (Chronic) Most recent Depo-Medrol injection: 10/14/22; 07/15/22; 08/21/21;05/20/2021 Pelvic organ prolapse quantification stage 3 cystocele (Chronic) Hiatal hernia (Chronic) Lichen sclerosus et atrophicus of the vulva (Chronic) Diagnosed 1985 with biopsy at [facility] [place] Followed by [facility] gynecology Urge incontinence (Chronic) Vitamin B 12 deficiency (Chronic) Medical History Polymyalgia rheumatica Surgical History 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) S/P colonoscopy S/P cholecystectomy S/P appendectomy H/O cataract extraction Status post total left knee replacement (01/31/09) S/P colon resection (~2003) S/P total abdominal hysterectomy and bilateral salpingo-oophorectomy Family History Mother , at 50 from Crohn disease Crohn disease Father , at 50 of [place] Heart disease Myocardial infarction Brother , at 76 of lung cancer Lung cancer Brother , at 50 of cancer Cancer Son , at 55 from esophageal cancer Esophageal cancer Son No problems noted. Son No problems noted. Daughter No problems noted. Maternal Grandfather No problems noted. Maternal Grandmother No problems noted. Paternal Grandfather No problems noted. Paternal Grandmother No problems noted. Social History Smoking/Tobacco Use Status: Never Second Hand Exposure: Yes Smoking risk assessment performed?: Yes Alcohol Intake: never Drug use: Never Substance use type: does not use Household members: none Housing: house Number of Children: 3 Communication Needs: Corrective Lenses Do you need help understanding health information?: Never Pets and animals: Yes Pets and animals: cat(s) Sexually active: No Do you think of yourself as: straight/heterosexual Current gender identity: female What is your relationship status?: How often do you talk on the phone with friends or family?: three or more times per week How often do you get together with friends or relatives?: twice per week How often do you attend mandaeism or restoration services?: 4 or more times per year Do you belong to any clubs or organized social groups?: yes Panel score (0-1 are the most socially isolated patients): 3 What type of physical activity do you participate in: none Ketty/Jewish: Protestant Special ketty needs: No Seatbelt use: always Helmet use: No 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 Do you feel safe at home: Yes Do you feel safe in your relationship?: Yes Female Reproductive History Menstrual Menopause type: surgical (SILVIO/BSO) History History 4 Para 4 Hx # Term Pregnancies 4 Multiple births Hx # Pregnancies Ectopic pregnancies AB induced Hx Number of Living Children 3 AB spontaneous Course Vital Signs Vital signs: Vital Signs Temperature 36.6 C 06/29/23 12:58 Pulse 83 06/29/23 12:58 Respiratory Rate 18 06/29/23 12:58 Blood Pressure 166/82 H 06/29/23 12:58 Pulse Oximetry 96 06/29/23 12:58 Temperature 36.6 C 06/29/23 12:58 Pulse 83 06/29/23 12:58 Respiratory Rate 18 06/29/23 12:58 Blood Pressure 166/82 H 06/29/23 12:58 Pulse Oximetry 96 06/29/23 12:58 Oxygen Delivery Method Room Air 06/29/23 12:58 Oxygen Flow Rate 0 06/29/23 12:58 Medical Decision Making 88-year-old female presents to the ER with a chief complaint of shortness of breath, cough headache body aches since Thursday. She reports yellowish nasal discharge and productive cough. She denies any chest pain. She has been using an albuterol inhaler at home which she has previously been prescribed for recent pneumonia. Past medical history includes polymyalgia rheumatica, multiple surgeries. Lungs are clear to auscultation, she does have some mild expiratory wheezes in the left upper lobe. She has been in full sentences no increased work of breathing. Fluvid swab ordered and 2 view chest x-ray. Will consider Tessalon Perles and or antibiotic if needed. Patient given 5 days of levofloxacin to treat empirically for possible pneumonia. Discussed home care with patient and follow-up with PCP and strict return instructions she verbalized understanding. This text was generated using [employer] dictation system, please disregard any oddities of phrase or misspellings. Lab Data Lab results reviewed: Yes I reviewed the patient's lab results. Labs: Laboratory Tests Range/Units 06/29/23 13:11 COVID-19 Source Nasopharynx SARS-CoV-2 (PCR) (Negative) Negative Influenza Type A (PCR) (Negative) Negative Influenza Type B (PCR) (Negative) Negative RSV (PCR) (Negative) Negative Discharge Plan Disposition Patient Disposition: Home Condition: Stable Discharge Details Clinical Impression: URI (upper respiratory infection), Cough Primary Care Provider: Destiny Brooke ED Provider: Randa Gorman Home Meds and New Rx's Prescriptions: New promethazine-DM 6.25-15 mg/5 mL syrup 5 ml PO QHS MDD 10ml PRN (Reason: cough) 4 Days Qty: 118 0RF Rx Instructions: Take 5 ml at bedtime as needed for cough. levofloxacin 750 mg tablet 750 mg PO DAILY 5 Days Qty: 5 0RF Rx Instructions: Take one tablet by mouth daily x 5 days No Action hydroxyzine HCl 10 mg tablet 10 mg PO TID PRN (Reason: anxiety) magnesium 500 mg tablet 15 mg PO DAILY mirtazapine 7.5 mg tablet 7.5 mg PO QHS Qty: 90 4RF aspirin [Adult Aspirin Regimen] 81 mg tablet,delayed release (DR/EC) 81 mg PO DAILY prednisone 10 mg tablet 10 mg PO DAILY PRN (Reason: Arthritis/osteoarthritis) prednisone 5 mg tablet 5 mg PO DAILY Qty: 30 cholecalciferol (vitamin D3) 25 mcg (1,000 unit) capsule 25 mcg PO DAILY cyanocobalamin (vitamin B-12) 2,500 MCG tablet 1,000 mcg PO DAILY Qty: 1 Discharge Instructions Instructions: Upper Respiratory Infection (ED), Acute Cough (ED) Additional Instructions: Please take the cough medicine at nighttime as needed for cough which is keeping you up at night. It will make you sleepy. Please take the antibiotic as directed. No evidence for COVID flu or RSV at this time. Follow up with primary care provider in 3-5 days. Return to ED sooner if any worsening or concerns. Increase oral fluids. Continue to use honey, lemon, hot tea, Vicks vapor rub on your chest. Continue to use your albuterol inhalers as needed. Referrals: Destiny Brooke NP [Primary Care Provider] - 3 days Discharge Data Discharge Date/Time-TO BE ENTERED AT DEPARTURE: 06/29/23 14:41
[2023-06-29 13:52] LABS: COVID-19 PCR Negative (Negative); Influenza A PCR Negative (Negative); Influenza B PCR Negative (Negative); RSV PCR Negative (Negative)
[2023-06-29 13:54] LABS: Source Nasopharynx
--- NOTE | 2023-06-29 14:13 | DI.VRAD_ITS ---
PROCEDURE INFORMATION: Exam: XR Chest Exam date and time: 06/29/2023 1:36 PM Age: 88 years old Clinical indication: Cough and shortness of breath TECHNIQUE: Imaging protocol: Radiologic exam of the chest. Views: 2 views. COMPARISON: 1. CR XR CHEST 2V PA LATERAL 01/22/2023 10:50 AM 2. CR XR CHEST 2V PA LATERAL 01/02/2020 10:00 AM 3. CR XR CHEST 2V PA LATERAL 08/18/2019 8:46 PM FINDINGS: Lungs: There is no of an infiltrate. Pleural spaces: There are no pleural effusions. Heart/Mediastinum: Unremarkable. No cardiomegaly. Vasculature: There are arteriosclerotic changes of the aorta. Bones/joints: There are degenerative changes osteopenia of the thoracic spine. IMPRESSION: No significant change when compared to the prior study dated 01/22/2023. Dictated and Authenticated by: Trenton Samuel MD. Ordering:SYDNEY Tolentino MD
[2023-06-29] MEDS: levoFLOXacin 500 MG TAB PO (14:14)
[2023-06-29] MEDS: levoFLOXacin 250 MG TAB PO (14:15)
--- NOTE | 2023-06-29 15:52 | NUR.NOTE ---
Referral faxed to PCP for cough and pneumonia follow up in 1 week. Nursing Note:
== END 2023-06-29 14:41 | disposition home or self-care (01) ==
PROVIDERS: Emergency Provider Registered Nurse Emergency; PCP Nurse Practitioner Family
DX: J06.9 Acute upper respiratory infection, unspecified (principal); M35.3 Polymyalgia rheumatica; Z79.82 Long term (current) use of aspirin; Z79.899 Other long term (current) drug therapy
CPT/HCPCS: 87637; 93005; 99284; 71046; 93010

== ENCOUNTER → 2023-07-01 10:55 | Outpatient (BNVA) | payer MEDICARE, SELFPAY | PROVIDERS: PCP Nurse Practitioner Family; Visit Provider Student in an Organized Health Care Education/Training Program | DX: S69.91XA Unspecified injury of right wrist, hand and finger(s), initial encounter (principal); X58.XXXA Exposure to other specified factors, initial encounter | CPT/HCPCS: 99213 ==

== ENCOUNTER 2023-07-13 16:28 | Outpatient (CLI) | payer MEDICARE, SELFPAY ==
[2023-07-13 13:35] LABS: Abs Immature Grans 0.06 10^3/uL (0.0-0.06); Absolute Lymphocyte Count 0.96 10^3/uL (1.2-3.4); Absolute Monocyte Count 0.24 10^3/uL (0.1-0.8); Basophils % 0.6; HCT 41.1 % (36.0-46.0); HGB 13.4 g/dL (11.2-15.7); Immature Grans % 0.5; Lymphocytes % 7.6; MCH 30.7 pg (27.0-33.0); MCHC 32.6 % (32.0-36.0); MCV 94 fL (80-95); MPV 9.8 fL (8.0-11.0); Monocytes % 1.9; Neutrophils % 89.4; Platelet Count 563 10^3/uL (130-400); RBC 4.36 10^6/uL (3.93-5.22); RDW 13.5 % (11.7-14.6); WBC 12.62 10^3/uL (4.4-10.8)
[2023-07-13 13:42] LABS: Absolute Basophil Count 0.08 10^3/uL (0.0-0.2); Absolute Neutrophil Count 11.28 10^3/uL (1.2-6.7)
[2023-07-13 14:13] LABS: Hemoglobin A1C 6.2 % (<5.7)
[2023-07-13 14:34] LABS: ALT 12 U/L (14-59); AST 10 U/L (15-37); Albumin 3.3 g/dL (3.4-5.0); Alkaline Phosphatase 58 U/L (46-116); Anion Gap 8.6 mmol/L (3-11); BUN 16 mg/dL (7-18); Bilirubin, Total 0.5 mg/dL (0.2-1.0); CO2 26.4 mmol/L (21.0-32.0); CREATININE 1.1 mg/dL (0.55-1.02); Calcium 9.3 mg/dL (8.5-10.1); Calculated LDL 153 mg/dL (<100); Chloride 101 mmol/L (98-107); Cholesterol 228 mg/dL (<200); Estimated GFR 48.94 (mL/min/1.73m2); Glucose 164 mg/dL (74-106); HDL Cholesterol 56 mg/dL (40-60); Potassium 4.5 mmol/L (3.5-5.1); Sodium 136 mmol/L (136-145); Total Protein 7.4 g/dL (6.4-8.2); Triglyceride 96 mg/dL (<150); Vitamin B12 > 2000 pg/mL (193-986)
[2023-07-13 15:51] LABS: Vitamin D 25 Total 63.9 ng/mL (30-100)
[2023-07-13 23:57] LABS: Hepatitis C Ab w Rflx HCV PCR Negative (Negative)
== END 2023-07-13 16:29 | disposition home or self-care (01) ==
LOC: LBO 16:28
PROVIDERS: PCP Nurse Practitioner Family; Visit Provider Nurse Practitioner Family
DX: E78.5 Hyperlipidemia, unspecified (principal); Z00.00 Encounter for general adult medical examination without abnormal findings; M81.0 Age-related osteoporosis without current pathological fracture; M06.4 Inflammatory polyarthropathy; R73.03 Prediabetes
CPT/HCPCS: 36415; 80053; 80061; 82306; 86803; 82607; 83036; 85025

== ENCOUNTER → 2023-09-08 14:36 | Outpatient (BNVA) | payer MEDICARE, SELFPAY | PROVIDERS: PCP Nurse Practitioner Family; Referring Provider Nurse Practitioner Family; Visit Provider Student in an Organized Health Care Education/Training Program | DX: M75.101 Unspecified rotator cuff tear or rupture of right shoulder, not specified as traumatic (principal); M12.811 Other specific arthropathies, not elsewhere classified, right shoulder | CPT/HCPCS: 20610; J1040 ==

== ENCOUNTER 2023-09-21 05:17 | Outpatient (CLI) | payer MEDICARE, SELFPAY ==
[2023-09-21 14:42] LABS: Abs Immature Grans 0.05 10^3/uL (0.0-0.06); Absolute Basophil Count 0.08 10^3/uL (0.0-0.2); Absolute Eosinophil Count 0.09 10^3/uL (0.0-0.7); Absolute Lymphocyte Count 2.55 10^3/uL (1.2-3.4); Absolute Monocyte Count 0.53 10^3/uL (0.1-0.8); Absolute Neutrophil Count 8.29 10^3/uL (1.2-6.7); Basophils % 0.7; Eosinophils % 0.8; HCT 40.7 % (36.0-46.0); HGB 13.3 g/dL (11.2-15.7); Immature Grans % 0.4; MCH 31.1 pg (27.0-33.0); MCHC 32.7 % (32.0-36.0); MCV 95 fL (80-95); MPV 9.9 fL (8.0-11.0); Monocytes % 4.6; Neutrophils % 71.5; Platelet Count 366 10^3/uL (130-400); RBC 4.28 10^6/uL (3.93-5.22); RDW 14.2 % (11.7-14.6); RDW-SD 49.5 fL
[2023-09-21 15:35] LABS: ALT 9 U/L (14-59); AST 10 U/L (15-37); Albumin 3.8 g/dL (3.4-5.0); Alkaline Phosphatase 44 U/L (46-116); Anion Gap 7.7 mmol/L (3-11); BUN 23 mg/dL (7-18); Bilirubin, Total 0.6 mg/dL (0.2-1.0); CO2 28.3 mmol/L (21.0-32.0); CREATININE 0.8 mg/dL (0.55-1.02); Calcium 8.9 mg/dL (8.5-10.1); Chloride 103 mmol/L (98-107); Estimated GFR 71.71 (mL/min/1.73m2); Glucose 124 mg/dL (74-106); Potassium 4.8 mmol/L (3.5-5.1); Sodium 139 mmol/L (136-145); Total Protein 7.1 g/dL (6.4-8.2)
[2023-09-21 15:36] LABS: C-Reactive Protein < 0.50 mg/dL (<or=0.5)
== END 2023-09-21 05:18 | disposition home or self-care (01) ==
LOC: LBO 05:17
PROVIDERS: PCP Nurse Practitioner Family; Visit Provider Internal Medicine Rheumatology
DX: M06.4 Inflammatory polyarthropathy (principal)
CPT/HCPCS: 36415; 80053; 85025; 86140

== ENCOUNTER 2023-10-16 08:54 | Outpatient (CLI) | payer MEDICARE, SELFPAY ==
--- NOTE | 2023-10-16 08:45 | RT.EKG_ITS ---
APPROVED REPORT Exam: Resting ECG Reason for Exam: as requested by Machinery Cleaner- systolic murmur Patient Location: O HR:67 bpm ECG Measurements Heart Rate 67 AXIS UT 201 P 0 QRSd 90 QRS -11 QT 399 T 102 QTc 422 Conclusion Sinus rhythm...normal P axis, V-rate 50- [address] abnormalities Anterior infarct, old...Q >40mS, abnormal ST-T, V2-V5
== END 2023-10-16 08:55 | disposition home or self-care (01) ==
LOC: DI.CM 08:56
PROVIDERS: PCP Nurse Practitioner Family; Visit Provider Nurse Practitioner Family
DX: R00.2 Palpitations (principal); R01.1 Cardiac murmur, unspecified; R94.31 Abnormal electrocardiogram [ECG] [EKG]
CPT/HCPCS: 93010

== ENCOUNTER → 2023-10-20 18:03 | Outpatient (CLI) | payer MEDICARE, SELFPAY ==
--- NOTE | 2023-10-20 14:20 | DI.US_ITS ---
APPROVED REPORT EXAM: Comprehensive 2D, Doppler, and color-flow Echocardiogram Patient Location: Out-Patient Cylinder Block Mechanic: Dalia Minor RDCS (AE) Indications: New systolic murmur Other Information Study Quality: Adequate Conclusion Normal left ventricular wall thickness and chamber size. EF is 45 to 50%. There are no segmental wa ll motion abnormalities Normal right ventricular size and systolic function Left atrium is moderately enlarged. Right atrial size is normal Aortic valve is sclerotic and trileaflet without stenosis or regurgitation Mitral annular calcification. Moderate central mitral regurgitation Normal tricuspid valve with mild regurgitation. Estimated right ventricular systolic pressure is 27 mmHg Wall motion Left Ventricle The left ventricle is normal size. Left ventricular systolic function is mildly decreased. There is n ormal left ventricular wall thickness. There is global hypokinesis of the left ventricle. There is no ventricular septal defect visualized. LVEF is 45-50%. Right Ventricle The right ventricle is normal size. The right ventricular systolic function is normal. Atria Left atrium is moderately dilated. The right atrium size is normal. Aortic Valve The aortic valve is sclerotic Aortic valve is trileaflet. There is no aortic valvular stenosis. No ao rtic regurgitation is present. Mitral Valve Moderate mitral annular calcification. No evidence of mitral valve stenosis. Moderate mitral regurgi tation. Tricuspid Valve The tricuspid valve is normal in structure. There is no tricuspid valve stenosis. Mild tricuspid reg urgitation. The RVSP is 27.6mmHg. Pulmonic Valve The pulmonary valve is normal in structure. There is no pulmonic valvular stenosis. Trace pulmonic re gurgitation. Great Vessels The aortic root is normal in size. The ascending aorta is normal in size. Aortic arch is not well vis ualized. IVC is normal in size and collapses >50% with inspiration. Pericardium There is no pericardial effusion. 2D Dimensions IVSD d PLAX 0.91 cm F: 0.6-1.0 Ao Root d 2.88 cm F: 2.7 - 3.3 LVPW d PLAX 0.87 cm F: 0.6 - 1.0 Ao Asc Diam d 2.99 cm F: 2.3 - 3.1 LVID d PLAX 4.39 cm F: 3.8 - 5.2 LVDs 3.42 cm F: 2.2 - 3.5 LV EF Teichholz 45.1 % FS 22.24 % LV EDV (Teich) 87.4 mL LV ESV (Teich) 48.0 mL M-Mode TAPSE 1.70 cm (M/F) >1.7 Auto EF LV EDV A4C 85.3 mL LV EDV A2C 115.2 mL LV EDV BP 99.9 mL LV ESV A4C 46.8 mL LV ESV A2C 64.3 mL LV ESV BP 55.4 mL LVEF(%) A4C 45.1 % LVEF(%) A2C 44.2 % LVEF(%) BP 44.5 % LV SV A4C 38.5 ml LV SV A2C 50.9 ml LV SV BP 44.5 ml LV CO A4C 2.2 L/min LV CO A2C 2.8 L/min LV CO BP 2.5 L/min HR A4C 56.50 BPM HR A2C 55.47 BPM LV EDV Index (BP) LA Volume LA Length A4C 5.6 cm LA Length A2C 4.9 cm LA Area A4C s 21.27 cm2 LA Area A2C s 21.79 cm2 LA Vol A4C A-L 68.42 mL LA Vol A2C A-L 82.54 mL LA Vol Biplane A-L 80.6 mL LA Vol/BSA A4C A-L LA Vol/BSA A2C A-L LA Vol/BSA BP A-L 57.1 mL/m2 LA Vol A4C MOD 63.0 mL LA Vol A2C MOD 75.4 mL LA Vol BP MOD 73.7 mL RA Volume RA Area A4C 10.8 cm2 RA ESV A4C (A-L) 23.0mL RA Vol/BSA A4C A-L RA Length A4C 4.3 cm RA ESV A4C (MOD) 22.7mL LV Diastology MV E' medial 0.041 (>0.07 m/s) MV E Vmax 0.65 (0.4-1.3 m/s) MV E/E' MED 15.92 (<14) MV A Vmax 1.30 (0.4-1.3 m/s) MV E' lateral 0.051 (>0.1 m/s) E/A Ratio 0.5 MV E/E' LAT 12.85 (<14) MV E' Average 0.046 m/s MV E/E'(average) 14.22 Aortic Valve AoV Vmax 1.50 m/s LVOT Vmax 0.99 m/s AoV Peak Grad 9.0 mmHg LVOT Peak Grad 3.9 mmHg AoV Area (Vmax) 1.84 cm2 LVOT VTI 0.188 m AoV VTI 0.311 m LVOT Mean Grad 1.9 mmHg AoV Mean Luca. 1.03 m/s LVOT SV 52.36 mL AoV Mean Grad 4.9 mmHg LVOT Diam s 1.85 cm AoV Area (VTI) 1.68 cm2 Velocity Ratio 0.66 Mitral Valve MV DT 427 (160-240 msec) MV Vmax TIPS 1.44 m/s MV Mean Grad 2.4 (<2mmHg) MV VTI 0.416 m Pulmonary Valve PV Vmax 1.19 (0.5-1.5 m/s) RVOT Vmax 0.91 m/s PV Peak Grad 5.7 mmHg RVOT Peak Gr. 3.3 mmHg PV Mean Luca 0.75 m/s RVOT VTI 0.188 m PV Mean Grad 2.7 mmHg RVOT Mean Gr. 1.6 mmHg Tricuspid Valve RA Pressure 3.00 mmHg TR Vmax 2.48 m/s TV S' 0.14 m/s TR Peak Grad 24.5 mmHg RVSP (TR) 27.6 mmHg
== END ==
PROVIDERS: PCP Nurse Practitioner Family; Visit Provider Nurse Practitioner Family
DX: R01.1 Cardiac murmur, unspecified (principal)
CPT/HCPCS: 93306

== ENCOUNTER 2023-10-25 16:50 | Emergency (ER) | payer MEDICARE, SELFPAY ==
--- NOTE | 2023-10-25 16:45 | RT.EKG_ITS ---
APPROVED REPORT Exam: Resting ECG Reason for Exam: heart racing Patient Location: E HR:74 bpm ECG Measurements Heart Rate 74 AXIS NV 198 P -7 QRSd 91 QRS -8 QT 389 T 106 QTc 432 Conclusion Sinus rhythm...normal P axis, V-rate 60- 99 Anterior infarct, old...Q >40mS, abnormal ST-T, V2-V5 Abnormal T, consider ischemia, lateral leads...T <-0.20mV, I aVL V5 V6 Physician: no stemi
[2023-10-25 16:56] VITALS: BP 185/86; PULSE 72; RESP 18; TEMP 36.7; O2SAT 100
--- NOTE | 2023-10-25 17:17 | W.ED.GENAD ---
Discharge Plan Disposition Patient Disposition: Home Condition: Good Discharge Details Clinical Impression: Acute UTI, Numbness and tingling of left hand Primary Care Provider: Destiny Brooke ED Provider: Chester Morales Home Meds and New Rx's Prescriptions: New estradiol 1 mg/gram (0.1 %) gel in packet 1 packet transdermal DAILY Qty: 30 0RF ciprofloxacin HCl [Cipro] 500 mg tablet 500 mg PO BID 5 Days Qty: 10 0RF No Action aspirin [Adult Aspirin Regimen] 81 mg tablet,delayed release (DR/EC) 81 mg PO DAILY prednisone 5 mg tablet 5 mg PO DAILY Qty: 30 Rx Instructions: Alternating with 4mg QOD cyanocobalamin (vitamin B-12) 1,000 mcg capsule 1,000 mcg PO DAILY cholecalciferol (vitamin D3) 25 mcg (1,000 unit) capsule 1,000 unit PO DAILY magnesium 500 mg tablet 1,000 mg PO QHS zoledronic [id number] [Reclast] 5 mg/100 mL piggyback IV .Annual omeprazole 20 mg capsule,delayed release(DR/EC) 20 mg PO DAILY PRN Discharge Instructions Instructions: Urinary Tract Infection in Women (ED) Additional Instructions: As we discussed together I believe your symptoms in your wrist are secondary to the watch being tight and mild nerve compression from where your wrist lies up against the table. Please loosen up your watch and try to keep your wrist from resting in that fashion. I would recommend holding it down on your lap while you are on the computer. Additionally your urinary frequency appears to be secondary to a urinary tract infection. Please take the antibiotic Cipro as prescribed. Additionally one of the primary causes of urinary tract infections in your age group is secondary to a lack of appropriate genital wellness. Please apply the estrogen cream as directed to that area for the next month. If you notice any worsening of your symptoms, or any new symptoms such as vomiting, diarrhea, fever, chills, shortness of breath, chest pain, numbness, weakness, or fainting , please return immediately to the emergency department for reevaluation. Please follow up with your primary care provider as soon as possible for reassessment and reevaluation. As always, it was a pleasure participating in your medical care today. Referrals: Destiny Brooke NP [Primary Care Provider] - [facility] General Date/Time Provider Initiated Documentation: 10/25/23 16:52. HPI Narrative: This is a very pleasant 88-year-old female with a past medical history of polymyalgia rheumatica on low-dose steroids, who takes a daily 81 mg aspirin, who also has a history of chronic shoulder discomfort secondary to arthritis, high cholesterol, who presents today for evaluation of left wrist pain. Patient states that for the past few weeks she has noticed that whenever she is at her computer she develops numbness in her left hand. It occurs when her arm/hand is on the desk or table. She usually sits with it on the desk/table resting on the medial component/ulnar aspect of the wrist resting. She states that shortly thereafter she will develop some pain and numbness and tingling in the hand usually from the wrist down. When she moves her hand/arm and start shaking her wrist the sensation eventually goes away. It never occurs at rest, never occurs with activity. Of note a new murmur was recently discovered on her and she did have an echo which showed mild valvular stenosis and mild regurgitation. She also notes that today she had a slight episode where she felt a little weak/fatigued compared to normal. She denies any falls or trauma. She does admit to some urinary frequency. She denies any chest pain. She denies any cough or fever. No other complaints at this time. No history of heart disease. She does not smoke. Related Data Home Medications Medication Instructions Recorded Confirmed aspirin 81 mg tablet,delayed 81 mg PO DAILY 08/01/21 10/16/23 release (Adult Aspirin Regimen) cholecalciferol (vitamin D3) 25 1,000 unit PO DAILY 07/10/23 10/16/23 mcg (1,000 unit) capsule cyanocobalamin (vitamin B-12) 1,000 mcg PO DAILY 07/10/23 10/16/23 1,000 mcg capsule magnesium 500 mg tablet 1,000 mg PO QHS 07/10/23 10/16/23 omeprazole 20 mg capsule,delayed 20 mg PO DAILY PRN 07/10/23 10/16/23 release zoledronic acid 5 mg/100 mL in device IV .Annual 07/10/23 10/16/23 mannitol 5 %-water intravenous piggybck (Reclast) prednisone 5 mg tablet 5 mg PO DAILY #30 tab-caps 09/08/23 10/16/23 ciprofloxacin HCl 500 mg tablet 500 mg PO BID 5 days #10 tabs 10/25/23 (Cipro) estradiol 1 mg/gram (0.1 %) 1 packet transdermal DAILY #30 10/25/23 transdermal gel packet grams Previous Rx's Medication Instructions Recorded ciprofloxacin HCl 500 mg tablet 500 mg PO BID 5 days #10 tabs 10/25/23 (Cipro) estradiol 1 mg/gram (0.1 %) 1 packet transdermal DAILY #30 10/25/23 transdermal gel packet grams Allergies Allergy/AdvReac Type Severity Reaction Status Date / Time benzonatate Allergy Intermediate Skin Rash Verified 10/16/23 09:01 amoxicillin [From Augmentin] Allergy Mild Rash Verified 10/16/23 09:01 azithromycin Allergy Mild Rash Verified 10/16/23 09:01 clavulanic acid Allergy Mild Rash Verified 10/16/23 09:01 [From Augmentin] rofecoxib AdvReac Mild NAUSEA Verified 10/16/23 09:01 methotrexate AdvReac Unknown Skin Rash Verified 10/16/23 09:01 shellfish derived AdvReac NAUSEA & Verified 10/16/23 09:01 VOMITING General Stated Complaint: GenMedical EZEKIEL: 3 Review of Systems All systems reviewed & are unremarkable except as noted in HPI and below Exam Narrative Exam Narrative: 1.Const: Well-nourished, Well-developed, appearing stated age 2.Eyes: PERRL, no conjunctival injection, and symmetrical lids. 3.ENT: Atraumatic external nose and ears. Moist MM. Neck: Symmetric, trachea midline, No thyromegaly. 4.CVS: +S1/S2, No murmurs or gallops. Peripheral pulses 2+ and equal in all extremities. Brisk capillary refill in all extremities. 5.RESP: Unlabored respiratory effort. Clear to auscultation bilaterally. No wheezes rales or rhonchi 6.GI: Soft, Nontender/Nondistended, No hepatosplenomegaly. No guarding or rebound. 7.MSK: Normocephalic/Atraumatic, Extremities w/o deformity or ttp No cyanosis or clubbing, Normal movement of all extremities. Phalen's test does elicit some pain and irritation which the patient describes as similar to her symptoms but no significant tingling in the fingers. Patient is wearing a tight watch around the left wrist 8.Skin: Warm, Dry. No rashes or lesions. 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 Sensation grossly intact, no focal neurologic deficits. 10.Psych: (AAO) x3. Appropriate mood and affect Course Vital Signs Vital signs: Vital Signs Temperature 36.7 C 10/25/23 16:56 Pulse 72 10/25/23 16:56 Respiratory Rate 18 10/25/23 16:56 Blood Pressure 185/86 H 10/25/23 16:56 Pulse Oximetry 100 10/25/23 16:56 Temperature 36.7 C 10/25/23 16:56 Temperature Source Skin 10/25/23 16:56 Pulse 72 10/25/23 16:56 Respiratory Rate 18 10/25/23 16:56 Blood Pressure 185/86 H 10/25/23 16:56 Blood Pressure Position Sitting 10/25/23 16:56 Pulse Oximetry 100 10/25/23 16:56 Oxygen Delivery Method Room Air 10/25/23 16:56 Oxygen Flow Rate 0 10/25/23 16:56 Medical Decision Making This is a very pleasant 88-year-old female with a past medical history of polymyalgia rheumatica on low-dose steroids, who takes a daily 81 mg aspirin, who also has a history of chronic shoulder discomfort secondary to arthritis, high cholesterol, who presents today for evaluation of left wrist pain. Patient states that for the past few weeks she has noticed that whenever she is at her computer she develops numbness in her left hand. It occurs when her arm/hand is on the desk or table. She usually sits with it on the desk/table resting on the medial component/ulnar aspect of the wrist resting. She states that shortly thereafter she will develop some pain and numbness and tingling in the hand usually from the wrist down. When she moves her hand/arm and start shaking her wrist the sensation eventually goes away. It never occurs at rest, never occurs with activity. Of note a new murmur was recently discovered on her and she did have an echo which showed mild valvular stenosis and mild regurgitation. She also notes that today she had a slight episode where she felt a little weak/fatigued compared to normal. She denies any falls or trauma. She does admit to some urinary frequency. She denies any chest pain. She denies any cough or fever. No other complaints at this time. No history of heart disease. She does not smoke. Exam demonstrates well-appearing female, physical exam is relatively benign, left wrist demonstrates a watch that is quite tight around the proximal wrist. Phalen's test does elicit pain and irritation which she describes as similar, but no actual tingling. No other abnormalities on exam. Symptoms I suspect for the hand are secondary to nerve compression, carpal tunnel syndrome, or ulnar nerve compression. I recommend that the patient keeps her wrist seated on her lap while at the computer. I recommend she loosens the watchband around her wrist as well. In addition to this with the patient's fatigue that she had today as well as urinary frequency I do worry for potential infectious or cardiac process. I feel this is in the low likelihood range, however with her age and risk factors I do feel that further evaluation is indicated. EKG shows no evidence of STEMI or significant abnormality. We will get basic labs to evaluate for thyroid or electrolyte abnormality and get a urinalysis to evaluate for infection. 7 PM EKG has returned benign, laboratory workup normal, normal troponin no white count no bandemia no left shift. Electrolytes normal. Urinalysis shows positive nitrites, trace leuk esterase, 5-10 WBCs with only a few epithelials. Moderate bacteria. I feel that this is the likely cause of her urinary frequency. We will prescribe Cipro secondary to her other multiple allergies to antibiotics, as well as vaginal estradiol cream to help with genital luis e/mucosal protection. Patient otherwise feels well. Recommended loosening or taking off the watch whenever she is at her computer, and resting her wrist on her waist/lap. Discussed red flags for which to return. I have extensively reviewed the treatment plan and discharge instructions with the patient. I have addressed all patient concerns at this time. The patient was made aware of what symptoms to monitor for that would warrant a return to the emergency department. Discussed the plan with the patient, they demonstrate verbal understanding and agreement with our assessment and plan at this time. The documentation in this chart was dictated using [employer] dictation software. Please excuse any dictation errors. 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 Dexa 2022 Prediabetes (Chronic) Rotator cuff tear arthropathy of right shoulder (Chronic) Most recent Depo-Medrol injection: 10/14/22; 07/15/22; 08/21/21;05/20/2021 Pelvic organ prolapse quantification stage 3 cystocele (Chronic) Hiatal hernia (Chronic) Lichen sclerosus et atrophicus of the vulva (Chronic) [place] 1985 [place] [facility] [place] 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 Son No problems noted. Daughter No problems noted. Maternal Grandfather No problems noted. Maternal Grandmother No problems noted. Paternal Grandfather No problems noted. Paternal Grandmother No problems noted. Social History Smoking/Tobacco Use Status: Never Second Hand Exposure: Yes Smoking risk assessment performed?: Yes Alcohol Intake: never Drug use: Never Substance use type: does not use Household members: none Housing: house Number of Children: 3 Communication Needs: Corrective Lenses Do you need help understanding health information?: Never Pets and animals: Yes Pets and animals: cat(s) Sexually active: No Do you think of yourself as: straight/heterosexual Current gender identity: female What is your relationship status?: How often do you talk on the phone with friends or family?: three or more times per week How often do you get together with friends or relatives?: twice per week How often do you attend restorationism or uatsdin services?: 4 or more times per year Do you belong to any clubs or organized social groups?: yes Panel score (0-1 are the most socially isolated patients): 3 What type of physical activity do you participate in: none Ketty/Episcopalian: Gnosticism Special ketty needs: No Seatbelt use: always Helmet use: No Drive intox or ride w/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
[2023-10-25 17:29] LABS: Abs Immature Grans 0.03 10^3/uL (0.0-0.06); Absolute Basophil Count 0.05 10^3/uL (0.0-0.2); Absolute Eosinophil Count 0.08 10^3/uL (0.0-0.7); Absolute Lymphocyte Count 1.92 10^3/uL (1.2-3.4); Absolute Monocyte Count 0.62 10^3/uL (0.1-0.8); Absolute Neutrophil Count 5.43 10^3/uL (1.2-6.7); Basophils % 0.6; HCT 37.2 % (36.0-46.0); HGB 12.3 g/dL (11.2-15.7); Immature Grans % 0.4; Lymphocytes % 23.6; MCH 31.3 pg (27.0-33.0); MCHC 33.1 % (32.0-36.0); MCV 95 fL (80-95); MPV 10.1 fL (8.0-11.0); Monocytes % 7.6; Neutrophils % 66.8; Platelet Count 333 10^3/uL (130-400); RBC 3.93 10^6/uL (3.93-5.22); RDW 14.4 % (11.7-14.6); RDW-SD 50.4 fL; WBC 8.13 10^3/uL (4.4-10.8)
[2023-10-25 17:43] VITALS: PULSE 66; RESP 18; O2SAT 95
[2023-10-25 17:50] VITALS: PULSE 67; RESP 20; O2SAT 95
[2023-10-25 17:52] LABS: ALT 12 U/L (14-59); AST 7 U/L (15-37); Albumin 3.5 g/dL (3.4-5.0); Alkaline Phosphatase 49 U/L (46-116); Anion Gap 7.8 mmol/L (3-11); BUN 17 mg/dL (7-18); Bilirubin, Total 0.3 mg/dL (0.2-1.0); CO2 29.2 mmol/L (21.0-32.0); CREATININE 0.9 mg/dL (0.55-1.02); Calcium 8.9 mg/dL (8.5-10.1); Chloride 106 mmol/L (98-107); Estimated GFR 62.26 (mL/min/1.73m2); Glucose 143 mg/dL (74-106); Potassium 4.2 mmol/L (3.5-5.1); Sodium 143 mmol/L (136-145); TSH (W/Ref FT4) 0.45 uIU/mL (0.36-3.74); Total Protein 6.7 g/dL (6.4-8.2); Troponin I < 50 ng/L (< or =60)
[2023-10-25 18:00] VITALS: PULSE 66; RESP 15; O2SAT 95
[2023-10-25 18:01] VITALS: BP 145/62; PULSE 64; PULSE 65; RESP 15; O2SAT 96
[2023-10-25 18:17] LABS: Bilirubin Negative (Negative); Blood Trace-intact (Negative); Clarity Sl Cloudy (Clear); Glucose Negative (Negative); Ketones 15 mg/dL (Negative); Leukocyte Esterase Trace (Negative); Nitrite Positive (Negative); Specific Gravity 1.025 (1.005-1.025); Urobilinogen 0.2 mg/dL (Up to 0.2); pH 5.5 (5-8)
[2023-10-25 18:28] LABS: Bacteria Moderate HPF (Negative); C & S Indicated? Yes; Casts Negative LPF (Negative); Crystals Negative HPF (Negative); Epithelial Cells Few HPF (Negative); Mucus Negative (Negative)
[2023-10-25] MEDS: Ciprofloxacin 500 MG TAB PO (19:02)
== END 2023-10-25 19:02 | disposition home or self-care (01) ==
PROVIDERS: Emergency Provider Student in an Organized Health Care Education/Training Program; PCP Nurse Practitioner Family
DX: N39.0 Urinary tract infection, site not specified (principal); R20.0 Anesthesia of skin; R20.2 Paresthesia of skin; M35.3 Polymyalgia rheumatica; R94.31 Abnormal electrocardiogram [ECG] [EKG]; Z79.82 Long term (current) use of aspirin; Z79.52 Long term (current) use of systemic steroids
CPT/HCPCS: 36415; 80053; 87077; 93005; 99284; 81003; 81015; 84443; 84484; 85025; 87086; 87186; 93010

== ENCOUNTER → 2023-11-10 03:49 | Outpatient (CLI) | payer MEDICARE, SELFPAY ==
--- NOTE | 2023-11-10 06:45 | DI.US_ITS ---
Exam(s) US SOFT TISSUE EXTREMITY EXAM: US SOFT TISSUE EXTREMITY CLINICAL HISTORY: evaluate pathology,MASS LT LOWER EXT,R22.42. TECHNIQUE: Ultrasound was performed the area of clinical concern anterior aspect left lower leg just above the ankle. COMPARISON: None FINDINGS: Submitted images reveal what appears to be a partially septated fluid collection in this region measu ring 6 cm length by 1.4 cm by 4.4 cm wide. This is probably a hematoma. IMPRESSION: Probable hematoma with measurements as above. DATA REPOSITORY:
--- NOTE | 2023-11-10 06:45 | DI.RAD_ITS ---
Exam(s) XR TIB/FIB LT EXAM: XR TIB/FIB LT CLINICAL HISTORY: evaluate fx, PAIN LT LOWER LEG, MASS LT LOWER EXTREMITY. TECHNIQUE: 2D digital imaging was performed of the left tibia and fibula. Two images were obtained. AP and lateral views were obtained. COMPARISON: No priors for comparison. FINDINGS: BONES: No acute fracture is present. No bony destructive lesion is seen. The patient has a left total knee replacement which appears in good position. SOFT TISSUE: Vascular calcifications are present. There is a 1.6 x 6.5 cm mildly lobulated soft tiss ue density medial to the midshaft of the tibia. The underlying bone is unremarkable. No associated calcifications are present. There is no periosteal reaction of the adjacent bone. IMPRESSION: Soft tissue density medial to the mid tibia. An MRI without and with contrast is recommended for fur ther evaluation. DATA REPOSITORY: RADIATION DOSE DELIVERED:
== END ==
PROVIDERS: PCP Nurse Practitioner Family; Visit Provider Nurse Practitioner Family
DX: R22.42 Localized swelling, mass and lump, left lower limb (principal); M79.662 Pain in left lower leg
CPT/HCPCS: 76881; 73590

== ENCOUNTER 2023-12-09 14:50 | Outpatient (CLI) | payer MEDICARE, SELFPAY ==
--- NOTE | 2023-12-09 10:00 | DI.RAD_ITS ---
Exam(s) XR SHOULDER RT COMPLETE 2+V EXAM: XR SHOULDER RT COMPLETE 2+V CLINICAL HISTORY: shoulder pain. TECHNIQUE: 2D digital imaging was performed. COMPARISON: CR XR SHOULDER RT COMPLETE 2+V from 07/24/2020 FINDINGS: Two views. No evidence of fracture but there are severe advanced osteoarthritic degenerative changes in the beni ohumeral joint with [id number] narrowing and upward subluxation of the humeral head in the osseous glenoid fossa with elimination of the subacromial space again noted, these findings consistent with c hronic full-thickness rotator cuff tear. There appears to be a possible fracture of the a chromium as seen on the axial view. AC joint exhibi ts degenerative changes but no distraction. No obvious clavicle fracture. 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 Elimination of the subacromial space, consistent with full-thickness rotator cuff pathology. Possible acromial fracture, seen on the axial image. DATA REPOSITORY: RADIATION DOSE DELIVERED:
== END 2023-12-09 14:51 | disposition home or self-care (01) ==
LOC: DIORS 14:50
PROVIDERS: PCP Nurse Practitioner Family; Referring Provider Nurse Practitioner Family; Visit Provider Student in an Organized Health Care Education/Training Program
DX: M75.101 Unspecified rotator cuff tear or rupture of right shoulder, not specified as traumatic (principal); M12.811 Other specific arthropathies, not elsewhere classified, right shoulder
CPT/HCPCS: 20610; J1010; 73030

== ENCOUNTER 2024-02-16 01:29 | Outpatient (CLI) | payer MEDICARE, SELFPAY ==
--- NOTE | 2024-02-16 06:30 | DI.CT_ITS ---
Exam(s) CT UPPER EXTREMITY RT WO EXAM: CT UPPER EXTREMITY RT WO CLINICAL HISTORY: SURGICAL PLANNING,rotator cuff arthopathy,arthritis rt shoulder,M19.011, TECHNIQUE: Imaging Protocol: Axial computed tomography images with coronal and sagittal reformatted images were created and reviewed. CONTRAST MATERIAL: Intravenous: Omnipaque 350 Contrast volume:structured data in ml Contrast route:I V - COMPARISON: CR XR SHOULDER RT COMPLETE 2+V from 12/09/2023 FINDINGS: Bones: There is no evidence of fracture or dislocation. No lytic or sclerotic lesions are identified. Degenerative cysts in the humeral head is well as acr omion and distal clavicle. Joints: Severe degenerative changes of the glenohumeral joint with a [id number]-[id number] appearance. Periar ticular spurring and sclerosis. Superior positioning of humeral head, beneath the acromion consisten t with chronic rotator cuff tear. Acromion is thinned and irregular. Soft Tissues: Normal. IMPRESSION: Severe degenerative changes of the glenohumeral joint. RADIATION DOSE DELIVERED: Total DLP DATA REPOSITORY: All CT scans at this facility are submitted to the National Radiology Data Registry (NRDR) Dose Index Registry (DIR) with the [employer] (ACR). RADIATION OPTIMIZATION: All CT scans at this facility use at least one of these dose optimization te chniques: automated exposure control; mA and/or kV adjustment per patient size (includes targeted exa ms where dose is matched to clinical indication); or iterative reconstruction.
== END 2024-02-16 01:49 ==
LOC: DI 01:30
PROVIDERS: PCP Nurse Practitioner Family; Visit Provider Student in an Organized Health Care Education/Training Program
DX: M19.011 Primary osteoarthritis, right shoulder
CPT/HCPCS: 73200

== ENCOUNTER → 2024-02-18 12:55 | Outpatient (BNVA) | payer MEDICARE, SELFPAY | PROVIDERS: PCP Nurse Practitioner Family; Referring Provider Nurse Practitioner Family; Visit Provider Physician Assistant | DX: M75.101 Unspecified rotator cuff tear or rupture of right shoulder, not specified as traumatic (principal); M12.811 Other specific arthropathies, not elsewhere classified, right shoulder; Z86.79 Personal history of other diseases of the circulatory system; R73.03 Prediabetes; R13.10 Dysphagia, unspecified | CPT/HCPCS: 99215 ==

== ENCOUNTER → 2024-03-02 10:48 | Outpatient (BNVA) | payer MEDICARE, SELFPAY | PROVIDERS: PCP Nurse Practitioner Family; Referring Provider Nurse Practitioner Family; Visit Provider Student in an Organized Health Care Education/Training Program | DX: M75.101 Unspecified rotator cuff tear or rupture of right shoulder, not specified as traumatic (principal); M12.811 Other specific arthropathies, not elsewhere classified, right shoulder | CPT/HCPCS: 99214 ==

== ENCOUNTER 2024-03-14 04:45 | Outpatient (CLI) | payer MEDICARE, SELFPAY ==
[2024-03-14 13:57] LABS: Abs Immature Grans 0.05 10^3/uL (0.0-0.06); Absolute Basophil Count 0.08 10^3/uL (0.0-0.2); Absolute Eosinophil Count 0.04 10^3/uL (0.0-0.7); Absolute Lymphocyte Count 1.22 10^3/uL (1.2-3.4); Absolute Neutrophil Count 8.54 10^3/uL (1.2-6.7); Basophils % 0.8 %; Eosinophils % 0.4 %; HCT 36.1 % (36.0-46.0); HGB 12.1 g/dL (11.2-15.7); Immature Grans % 0.5 %; Lymphocytes % 11.9 %; MCH 32.1 pg (27.0-33.0); MCHC 33.5 % (32.0-36.0); MCV 96 fL (80-95); MPV 9.9 fL (8.0-11.0); Monocytes % 2.9 %; Neutrophils % 83.5 %; Platelet Count 371 10^3/uL (130-400); RBC 3.77 10^6/uL (3.93-5.22); RDW 13.5 % (11.7-14.6); WBC 10.23 10^3/uL (4.4-10.8)
[2024-03-14 14:46] LABS: ALT 11 U/L (14-59); AST 16 U/L (15-37); Albumin 3.5 g/dL (3.4-5.0); Alkaline Phosphatase 48 U/L (46-116); Anion Gap 7.6 mmol/L (3-11); BUN 18 mg/dL (7-18); Bilirubin, Total 0.43 mg/dL (0.2-1.0); C-Reactive Protein < 0.50 mg/dL (<or=0.5); CO2 25.4 mmol/L (21.0-32.0); Calcium 9.3 mg/dL (8.5-10.1); Chloride 104 mmol/L (98-107); Estimated GFR 54.53 (mL/min/1.73m2); Glucose 153 mg/dL (74-106); Potassium 4.8 mmol/L (3.5-5.1); Sodium 137 mmol/L (136-145); Total Protein 6.8 g/dL (6.4-8.2)
== END 2024-03-14 04:46 | disposition home or self-care (01) ==
LOC: LBO 04:46
PROVIDERS: PCP Nurse Practitioner Family; Visit Provider Internal Medicine Rheumatology
DX: M06.4 Inflammatory polyarthropathy (principal)
CPT/HCPCS: 36415; 80053; 85025; 86140

== ENCOUNTER 2024-03-31 09:42 | Day surgery (SDC) | payer MEDICARE, SELFPAY ==
[2024-03-31] VITALS (31 sets, daily range): BP systolic 151–207; BP diastolic 57–105; PULSE 56–76; RESP 12–23; TEMP 36.1–36.5; O2SAT 93–100; BMI 22.9
--- NOTE | 2024-03-31 07:14 | W.PM.DSUDISC ---
Date of service: 03/31/24 Time of Service: 15:00 Discharge Plan Disposition Patient Disposition: Home Condition: Stable Discharge Details Attending Provider: Gutierrez Harris Primary Care Provider: Destiny Brooke Home Meds and New Rx's Prescriptions: New naproxen 250 mg tablet 250 mg PO BID PRNQty: 20 0RF Rx Instructions: take with a meal tramadol 50 mg tablet 50 mg PO Q8H PRN (Reason: severe pain) Qty: 9 0RF Continued aspirin [Adult Aspirin Regimen] 81 mg tablet,delayed release (DR/EC) 81 mg PO DAILY prednisone 1 mg tablet 4 mg PO Q OTHER DAY Rx Instructions: alternates every other day with 5 mg prednisone 5 mg tablet 5 mg PO .every other day Qty: 30 Rx Instructions: alternating with 4 mg cyanocobalamin (vitamin B-12) 1,000 mcg capsule 1,000 mcg PO DAILY cholecalciferol (vitamin D3) 25 mcg (1,000 unit) capsule 1,000 unit PO DAILY magnesium 500 mg tablet 1,000 mg PO QHS zoledronic [id number] [Reclast] 5 mg/100 mL piggyback IV .Annual Discharge Instructions Additional Instructions: Surgery: Right reverse total shoulder arthroplasty (constrained liner) Activity: Do not lift anything heavier than a coffee. You should keep your arm at your side in a relatively neutral position at all times except for gentle range of motion exercises, physical therapy, and essential activities. You should use the sling whenever you are out of the house. At home it is best to remove the sling and rest the arm on a pillow at your side or support the operative side with your other hand. A physical therapy prescription will be sent electronically to start in about 3 weeks. Standard Reverse TSA Protocol GENTLE due to soft bone. Prescriptions: Resume home Aspirin 81 mg daily tomorrow Naproxen 250 mg take 1-2 every 12 hours with a meal as needed for moderate pain Tramadol 50 mg take 1 every 6-8 hours as needed for severe pain You may use [id number] Tylenol (acetaminophen) as needed for mild pain. These pain medications may be taken all at once or in different combinations as needed. Also, recommend Colace (docusate) as a stool softener as surgery and pain medicine cause constipation. You may try [id number]-[id number] diphenhydramine (Benadryl) 25-50 mg nightly as a sleep aid Dressings: Leave dressing in place until follow-up. Keep clean and dry at all times. No showers please. Follow-up: 10-[address] Harris You may take off the leg compression stockings this evening at home. You may also leave them on a few days longer if you have a history of leg swelling or edema. Please call the office during business hours with any questions or concerns. Let us know right away if you develop any redness, drainage, fevers, chest pain, or trouble breathing. Do not drink alcohol or drive for at least 24 hours after anesthesia. Stand Alone Forms: Anesthesia Discharge Inst., Melis.Nerve Block Instructions, Magan Tellez (DSU) Referrals: Gutierrez Harris MD [ [facility] STAFF PHYSICIAN] - 04/13/24 10:15 am Discharge Orders Discharge Orders: Discharge Order (Routine); Ordered 03/31/24 Ordered By: Katherine Rodriguez DS: Diagnosis Discharge Diagnosis (1) Rotator cuff tear arthropathy of right shoulder: Status: Chronic
--- NOTE | 2024-03-31 08:33 | ANES.PREOP_ITS ---
General Info Date of Service Date Performed: 03/31/24 Height: 4 ft 9.75 in Weight: 49.442 kg Body Mass Index (BMI): 22.9 Surgical Procedure: Operation Date: 03/31/24 11:40 Proposed Procedure Side Surgeon p Reverse Shoulder Total Arthroplasty, biceps tenodesis, any other indicated procedures Right Gutierrez Harris MD Meds Allergies and Home Medications Allergies Allergy/AdvReac Type Severity Reaction Status Date / Time benzonatate Allergy Intermediate Skin Rash Verified 03/31/24 10:23 amoxicillin (From Augmentin) Allergy Mild Rash Verified 03/31/24 10:23 azithromycin Allergy Mild Rash Verified 03/31/24 10:23 clavulanic acid (From Allergy Mild Rash Verified 03/31/24 10:23 Augmentin) rofecoxib AdvReac Mild NAUSEA Verified 03/31/24 10:23 methotrexate AdvReac Unknown Skin Rash Verified 03/31/24 10:23 shellfish derived AdvReac NAUSEA & Verified 03/31/24 10:23 VOMITING Home Medication ?Medication ?Instructions ?Recorded aspirin 81 mg tablet,delayed 81 mg PO DAILY 08/01/21 release (Adult Aspirin Regimen) cholecalciferol (vitamin D3) 25 1,000 unit PO DAILY 07/10/23 mcg (1,000 unit) capsule cyanocobalamin (vitamin B-12) 1,000 mcg PO DAILY 07/10/23 1,000 mcg capsule magnesium 500 mg tablet 1,000 mg PO QHS 07/10/23 zoledronic acid 5 mg/100 mL in device IV .Annual 07/10/23 mannitol 5 %-water intravenous piggybck (Reclast) prednisone 1 mg tablet 4 mg PO Q OTHER DAY 03/02/24 prednisone 5 mg tablet 5 mg PO .every other day #30 03/02/24 tab-caps Current Visit Medications: Current Medications Generic Name Dose Route Start Last Admin Trade Name Freq PRN Reason Stop Dose Admin Acidophilus/Pectin 1 cap 03/31/24 15:30 Lactobacillus Acidophilus Cap PO 03/31/24 15:31 TODAY@1530 ONE Ringer's Solution 1,000 mls @ 30 mls/hr 03/31/24 06:00 IV 04/29/24 23:59 INFUSION SHANNAN Cefazolin Sodium/Dextrose 2 gm in 50 mls @ 100 mls/hr 03/31/24 06:00 Ancef Duplex IVPB 03/31/24 18:00 PREOP SHANNAN Tranexamic Acid/Sodium Chloride 1,000 mg in 100 mls @ 600 mls/hr 03/31/24 06:00 IVPB 03/31/24 18:00 PREOP SHANNAN Cefazolin Sodium/Dextrose 1 gm in 50 mls @ 100 mls/hr 03/31/24 16:30 Ancef Duplex IVPB 03/31/24 16:59 NOW ONE IV Miscellaneous Supplies 1 each 03/31/24 06:00 Iv Access IV 04/29/24 23:59 DIRECTED SHANNAN Oxycodone HCl 0 mg 03/31/24 07:12 Oxycodone 5 Mg Tab PO 04/30/24 07:11 Q3H PRN PRN Pain Sodium Chloride 0 ml 03/31/24 06:00 Normal Saline Flush 10 Ml Syr IV 04/29/24 23:59 PRN PRN Sodium Chloride 0 ml 03/31/24 06:00 Normal Saline 10 Ml Vial IJ 04/29/24 23:59 DIRECTED PRN Sterile Water 0 ml 03/31/24 06:00 Water,Injection,Sterile 10 Ml Vial IJ 04/29/24 23:59 DIRECTED PRN PFSH Active Problems Active Problems: Problem Status Onset Code Right foot strain Acute ~02/05/24 S96.911A Inflammatory polyarthropathy Chronic M06.4 Hyperlipidemia Chronic E78.5 Mitral regurgitation Chronic I34.0 Osteoporosis Chronic M81.0 Prediabetes Chronic R73.03 Rotator cuff tear arthropathy of right shoulder Chronic M75.101, M12.811 Pelvic organ prolapse quantification stage 3 cystocele Chronic N81.10 Lichen sclerosus et atrophicus of the vulva Chronic Urge incontinence Chronic N39.41 Medical History Medical History Major depressive disorder Polymyalgia rheumatica Surgical History Surgical History 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) S/P colonoscopy S/P cholecystectomy S/P appendectomy H/O cataract extraction Status post total left knee replacement (01/31/09) S/P colon resection (~2003) S/P total abdominal hysterectomy and bilateral salpingo-oophorectomy Tobacco Smoking/Tobacco Use Status: Never Passive smoking exposure: Yes Second hand exposure: Yes Alcohol Alcohol Intake: current Alcohol intake frequency: holidays/special occasions only Substance Use Substance use: Never Substance use type: does not use Prental History History 4 Para 4 Hx # Term Pregnancies 4 Multiple births Hx # Pregnancies Ectopic pregnancies AB induced Hx Number of Living Children 3 AB spontaneous Vital Signs and Lab Results Vital Signs Most Recent Vital Signs in EMR: Temp Pulse Resp BP Pulse Ox 36.2 C L 76 16 196/78 H 97 03/31/24 10:06 03/31/24 10:06 03/31/24 10:06 03/31/24 10:06 03/31/24 10:06 Lab Results Blood Type / Crossmatch: No Data to Display Complete Blood Count: White Blood Count 10.23 10^3/uL (4.4-10.8) 03/14/24 13:47 Red Blood Count 3.77 10^6/uL (3.93-5.22) L 03/14/24 13:47 Hemoglobin 12.1 g/dL (11.2-15.7) 03/14/24 13:47 Hematocrit 36.1 % (36.0-46.0) 03/14/24 13:47 Platelet Count 371 10^3/uL (130-400) 03/14/24 13:47 Complete Metabolic Panel: Sodium 137 mmol/L (136-145) 03/14/24 13:47 Potassium 4.8 mmol/L (3.5-5.1) 03/14/24 13:47 Chloride 104 mmol/L (98-107) 03/14/24 13:47 Carbon Dioxide 25.4 mmol/L (21.0-32.0) 03/14/24 13:47 BUN 18 mg/dL (7-18) 03/14/24 13:47 Creatinine 1.0 mg/dL (0.55-1.02) 03/14/24 13:47 Est GFR (CKD-EPI 2020) 54.53 (mL/min/1.73m2) 03/14/24 13:47 Calcium 9.3 mg/dL (8.5-10.1) 03/14/24 13:47 Albumin 3.5 g/dL (3.4-5.0) 03/14/24 13:47 Glucose 153 mg/dL (74-106) H 03/14/24 13:47 C-Reactive Protein < 0.50 mg/dL (<or=0.5) 03/14/24 13:47 Liver Function Panel: Alanine Aminotransferase (ALT/SGPT) 11 U/L (14-59) L 03/14/24 1 3:47 Aspartate Amino Transf (AST/SGOT) 16 U/L (15-37) 03/14/24 13:47 Coagulation Panel: No Data to Display Cardiac Panel: No Data to Display Arterial Blood Gas: No Data to Display Venous Blood Gas: No Data to Display Pancreas Panel: No Data to Display Thyroid Panel: No Data to Display Infectious Disease: No Data to Display Blood Cultures: No Data to Display Toxicology Panel: No Data to Display Imaging and Studies Imaging and Studies Study information below may be from another EMR and interpreted by another provider. Please see original notes in EMR for more complete details. EKG Summary: 10/25/23 Conclusion Sinus rhythm...normal P axis, V-rate 60- 99 Anterior infarct, old...Q >40mS, abnormal ST-T, V2-V5 Abnormal T, consider ischemia, lateral leads...T <-0.20mV, I aVL V5 V6 Echocardiogram Summary: 10/20/23 Conclusion Normal left ventricular wall thickness and chamber size. EF is 45 to 50%. There are no segmental wall motion abnormalities Normal right ventricular size and systolic function Left atrium is moderately enlarged. Right atrial size is normal Aortic valve is sclerotic and trileaflet without stenosis or regurgitation Mitral annular calcification. Moderate central mitral regurgitation Normal tricuspid valve with mild regurgitation. Estimated right ventricular systolic pressure is 27 mmHg Other Study Summary:: 14 holter monitor 07/2021 Cardiac Event Note: This is a 14-day Holter monitor ordered for an irregular heart rate Predominant rhythm was sinus with an average rate of 62. Minimum was 41, maximum 115 There were rare ventricular ectopic beats. There was 1 ventricular triplet There were occasional to frequent atrial premature beats comprising 8.46% of total. A total of 15 self-limited atrial runs occurred the longest of which was 3 beats in duration There was no atrial fibrillation, no high-grade AV block, no pauses greater than 3 seconds No patient symptoms were reported Anesthesia Assessment and Plan Anesthesia History Personal History: No History of Anesthesia Complications Family History: No Family History of Anesthesia Complications Exercise Tolerance Exercise Tolerance: Unknown Pertinent Negatives Pertinent Negatives: No Major Cardiovascular Symptoms or Complaints, No Major Pulmonary Symptoms or Complaints, No History of CVA/TIA and Other (chronic GERD, denies symptoms DOS) Cardiac & Pulmonary Exam Cardiac Exam: Normal S1/S2 Heart Sounds Pulmonary Exam: Clear Bilateral Breath Sounds and No cough or Cold Implantable Cardiac Device Does patient have a Pacemaker or an ICD?: No Airway Exam Known Difficult Airway: No Mallampati Class: 2 Mouth Opening: Normal (> 3cm) Thyromental Distance: Greater than 3 cm Neck Range of Motion: Full ROM Neck Circumference: Normal Teeth Condition: Normal Dentition ASA Classification ASA Score: ASA 3 Emergency Case?: No NPO Status NPO Status: NPO Clears >2 hours, Solids >8 hours Anesthesia Plan Resuscitation Status: Full Code Anesthesia Technique: General Anesthesia Airway Planned: Endotracheal Tube Monitors Used: Standard Monitors and SedLine Preoperative Comments:: Plan for GETA, w/ right interscalene PNB for pain control, Sedline, possible A-line placement
[2024-03-31] MEDS: Lactated Ringers 1,000 ML 30 ML IV (10:49)
--- NOTE | 2024-03-31 11:54 | W.ANESNERVE ---
Nerve Block Single Injection Procedure Date and Time Date Performed: 03/31/24 Procedure Start: 11:30 Location Where Procedure Performed Procedure Location: Day Surgery Unit Reason Performed: Postoperative Analgesia Requesting Provider: Gutierrez Harris Timeout Performed Timeout Performed: No Monitoring Used ECG, Blood Pressure, SpO2 and See EMR for corresponding vital signs Sterility Sterility: Hand Hygiene, Surgical Cap, Surgical Mask and Sterile Gloves Sedation Given During Procedure Sedation Given (Indicate Dose Given): No Sedation given Patient Mental Status Patient Mental Status: Awake Nerve Block 1st Nerve Block: Laterality: Right Block Type: Interscalene Ultrasound Image Saved?: Yes Needle / Catheter Used: 80mm SonoPlex II Local Anesthetic Bolus (Indicate Dose Given): Lidocaine used for local infiltration of skin, Injected in 3-5ml increments after negative blood aspiration, Bupivacaine 0.5% Dose:: 10ml and Exparel Dose:: 10ml Additives (Indicate Dose Given): None Ultrasound: Used to betsy site Nerve Stimulator: Supplement to Ultrasound use and No twitch or parasthesia noted < 0.5 mA Paresthesia: Right Paresthesia Duration: Transient Procedure Tolerated: No Complications and Patient tolerated well Procedure Outcome: Successful Performed By: Santos Amado Supervised By: Cayden Izaguirre
[2024-03-31] MEDS: ceFAZolin 2 GM/50 ML BAG IVPB (12:03)
[2024-03-31] MEDS: TRANEXAMIC ACID/SOD. CHL. 1,000 MG/100 ML BAG 600 MG IVPB (12:30)
[2024-03-31] MEDS: Bupivacaine 0.25% Pres-Free W/EPI 30 ML VIAL (13:03)
--- NOTE | 2024-03-31 15:14 | W.PM.OP ---
Date of service: 03/31/24 Time of Service: 14:00 Operative Note Operative Note DATE OF PROCEDURE: 03/31/24 PRE-OP DIAGNOSIS: Right: 1. Rotator cuff arthropathy POST-OP DIAGNOSIS: other 2. Proximal biceps rupture PROCEDURE: Right: 1. Reverse total shoulder arthroplasty, CPT # 87915 The botany laboratory assistant was medically required as this procedure involves retraction, protection of neurovascular structures, and manipulation of multiple instruments and implants at the same time, which cannot be done without a skilled botany laboratory assistant. SURGEON: Gutierrez Harris INSURANCE PLAN SPECIALIST: Katherine Rodriguez ANESTHESIA TYPE: Local By Surgeon, General LMA/ETT and Primary Nerve Block Refer to Anesthesia Record ESTIMATED BLOOD LOSS: 75 COMPLICATIONS: None Patient was transported to: PACU Patient's condition: stable Implants: [employer] modular glenoid system baseplate 24 mm, 10 degree full wedge standard [employer] modular glenoid system central post 25 mm [employer] modular glenoid system peripheral locking screws 32 mm inferior, 32 mm superior, 16 mm posterior, 16 mm anterior [employer] modular glenoid system glenosphere 36 +4 mm lateralized [employer] humeral stem 135 degrees size 7 [employer] suture cup size 36 posterior offset [employer] spacer size 36 +6 mm [employer] humeral insert size 36 +3 mm constrained Indications: Please see complete medical record for details. Findings: Nearly complete absence of any rotator cuff, significant proximal humerus deformity, superior migration, absent long head biceps, profoundly diminutive and soft proximal humerus and glenoid. Procedure Description: In the operating room, general anesthesia was induced. The patient was positioned beachchair on the operating room table. All bony prominences were well-padded. Preoperative antibiotics were administered. The shoulder was prepped and draped in the usual sterile fashion for shoulder arthroplasty. The correct patient, procedure, and side of the procedure were all verified prior to incision. The deltopectoral approach was preinjected with 0.25% bupivacaine containing epinephrine and taken to the anterior shoulder. Care was taken to bluntly dissect the interval between the deltoid and pectoralis major muscles and to identify the cephalic vein within its fat stripe. The the vein was mobilized laterally. Subdeltoid space and conjoined tendon were freed of adhesions exposing bursa and joint effusion and a small round deformed and balled proximal humerus. Minimal rotator cuff remnant was removed. Diminutive biceps groove could be identified. Carefully going into external rotation anterior capsule was released to deliver the proximal humerus. The proximal humerus was cut carefully and conservatively accounting for the significant deformity using a broach and version rods as template. The bone cut was brought to the back table and cancellous bone harvested in case grafting was needed later. The proximal humeral protection plate was used to provisionally confirm suture cup and glenosphere size. Reamers were started appropriately posterior to the bicipital groove taking care to maintain in line approach with the humeral canal. Sequential reaming was done from size 5 up to size 7. Next, the broaches were sequentially used to open the proximal humerus starting with a size 5 and going up to size 7 and sunk to the appropriate depth while maintaining approximately 25 degrees retroversion. Broaches were impacted very carefully given the soft cancellous and thin cortical bone. There was reasonable metaphyseal fit and rotational control of the proximal humerus with this size. The posterior offset guide was used to ream for the suture cup. Additional very thin bone remnant about the proximal humerus was then removed with a rongeur and the size 7 broach impacted slightly more vigorously sitting slightly deeper with better fit. The posterior offset guide was used to ream for the suture cup again. Again, very thin remnant bone for the proximal humerus was removed with a rongeur. Attention was then turned to the glenoid and retractors were placed and a circumferential release performed using the long head of the biceps remnant to remove soft tissue about the glenoid rim. Care was taken inferiorly to work on bone only between 5 and 7:00 o'clock and bluntly elevate tissues inferiorly. The VIP guide was placed on the glenoid and used to confirm placement and trajectory of the central guidepin. The guidepin was inserted and advanced just through the far cortex ensuring adequate central fixation length. The glenoid was prepared according to drawing press operator specifications for a augmented baseplate and central post. The baseplate was impacted onto the glenoid surface. The locking guide was then used to drill and place appropriately lengthed inferior, superior, anterior, and posterior screws. The enav-zjk-pdlvdzrfz reamer was used to confirm adequate peripheral reaming. The glenosphere was applied with the furniture builder and then impacted to engage the Gan taper. It was then locked with appropriate countersinking of the setscrew. The glenosphere was inspected and found to have good fit, appropriate positioning, and no soft tissue or bony impingement. Attention was then turned back to the proximal humerus. The very thin proximal humerus bone had more apparent than usual indentation type fracture from the glenoid retractors, which had been necessary to prepare the very small glenoid accommodating the proportionally larger instruments. Rongeur was used to contour the thin wafer of bone again around the proximal humerus. The humeral trial cup was connected. Trialing was commenced with +3 mm liner. The shoulder was reduced and taken through range of motion. Trial components were built up to +6 millimeter spacer and +3 mm liner to achieve excellent stability and appropriate tension on the deltoid and conjoined tension. The trial components were removed from the proximal humerus. The wound was copiously irrigated with normal saline. The thin greater tuberosity bone had cracked and from the metaphysis posteriorly during the reduction dislocation trialing. A suture tape cerclage doubled over was placed around the proximal humerus securing this bone fragment and medially just below the bone cut and calcar. It was tension directing the knot near the bicipital groove. A small amount of vancomycin powder was distributed in the proximal humerus. Bone graft from the proximal humeral head and the suture cup reamer was then packed about the proximal humerus metaphysis. The humeral component and suture cup were impacted into place. They had good fit and control of the proximal humerus. The fiber tape cerclage was then final tensioned and knots tied. The trial spacer and liner were added, and the shoulder was attempted to be reduced, but would have required undue tension and not wanting to stress the proximal humerus bone additionally the final spacer and liner were connected instead. Proximal humerus implants were stable. The shoulder was reduced and range of motion, stability, and tension all confirmed to be excellent. The shoulder was copiously irrigated with Betadine and normal saline. The greater tuberosity fracture fragment had fragmented probably again on reduction and dislocation with tension or pressure on the glenosphere. A loose fragment was removed. The junction distally was still well secured by the FiberTape and did not impact the prosthesis. A remaining fragment far posteriorly could not really be secured, but also did not present a problem as it was distally and would not impinge in the joint or the acromion so was left behind to probably resorb. Hemostasis was appropriate. Vancomycin powder was distributed deeply about the shoulder and through subcutaneous tissues. The deltopectoral interval was loosely approximated with 2-0 Monocryl. Subcutaneous tissue was irrigated then closed using 2-0 Monocryl in a buried interrupted fashion. Skin was closed using 3-0 Monocryl in a buried subcuticular fashion. Skin glue was applied to the incision. A silver impregnated bandage was placed over the incision. The extremity was placed into a shoulder immobilizer. The patient awoke from anesthesia without complication and was taken to the recovery room in stable condition.
--- NOTE | 2024-03-31 15:30 | DI.RAD_ITS ---
Exam(s) XR SHOULDER RT COMPLETE 2+V EXAM: XR SHOULDER RT COMPLETE 2+V CLINICAL HISTORY: shoulder arthritis. TECHNIQUE: 2D digital imaging was performed of the right shoulder. Three images were obtained. AP and Grashey views were obtained. COMPARISON: CR XR SHOULDER RT COMPLETE 2+V from 12/09/[address] UPPER EXTREMITY RT WO from 02/16/2024 FINDINGS: The patient is now status post right total reverse shoulder replacement. The orthopedic hardware carlos ears in good position. The bones are intact. There are degenerative changes seen at the acromioclav icular joint. Postsurgical changes are seen in the soft tissues. IMPRESSION: Status post right total reverse shoulder replacement. DATA REPOSITORY: RADIATION DOSE DELIVERED:
[2024-03-31] MEDS: fentaNYL 100 MCG/2 ML VIAL IVP (15:43)
--- NOTE | 2024-03-31 15:51 | W.ANESPOSTOP ---
Postoperative Evaluation Date, Time and Location Date Performed: 03/31/24 Time Performed: 15:51 Patient Location: PACU Vital Signs Most Recent Imported Vital Signs: Most Recent Vital Signs Temp Pulse Resp BP Pulse Ox 36.4 C L 59 L 16 164/67 H 95 03/31/24 15:42 03/31/24 15:46 03/31/24 15:46 03/31/24 15:46 03/31/24 15:45 Pain Score Most Recent Pain Score: Most Recent Pain Score Pain Level 8 03/31/24 15:30 Assessment Mental Status: Awake (Alert & Oriented to Patient Baseline) Airway and Respiratory Function: Patent airway with normal (patient baseline) respiratory exam Cardiovascular Function: Hemodynamically Stable Hydration Status: Adequately Hydrated Nausea & Vomiting: No Nausea or Vomiting Pain: Pain is tolerable per patient (8/10 pain, analgesics given in PACU with improvement ) Peripheral Nerve Block: Regional nerve block not resolved at time of post operative discharge Teaching Patient Teaching: Discussed Safe Use of Pain Medication Given Recent Anesthesia
[2024-03-31] MEDS: ceFAZolin 1 GM/50 ML BAG IVPB (16:02)
[2024-03-31] MEDS: traMADol 50 MG TAB PO (16:49)
[2024-03-31] MEDS: Lactobacillus Acidophilus CAP 1 CAP PO (16:50)
== END 2024-03-31 17:38 | disposition home or self-care (01) ==
LOC: SUR 09:43
PROVIDERS: PCP Nurse Practitioner Family; Visit Provider Student in an Organized Health Care Education/Training Program
PROC: (CPT 23472; principal; 2024-03-31 11:30)
DX: M75.101 Unspecified rotator cuff tear or rupture of right shoulder, not specified as traumatic (principal); M12.811 Other specific arthropathies, not elsewhere classified, right shoulder; S46.211A Strain of muscle, fascia and tendon of other parts of biceps, right arm, initial encounter; X58.XXXA Exposure to other specified factors, initial encounter
CPT/HCPCS: 23472; C1713; 76942; 73030; C9290; J0131; J0665; J0690; J1100; J2250; J2371; J2405; J2704; J3010; J3370

== ENCOUNTER 2024-04-13 11:22 | Outpatient (CLI) | payer MEDICARE, SELFPAY ==
--- NOTE | 2024-04-13 10:00 | DI.RAD_ITS ---
Exam(s) XR SHOULDER RT COMPLETE 2+V EXAM: XR SHOULDER RT COMPLETE 2+V CLINICAL HISTORY: F/U RIGHT RTSA. TECHNIQUE: 2D digital imaging was performed. Two images were obtained. Grashey and Y views were obt ained. COMPARISON: CR,XR XR CHEST 2V PA LATERAL from 06/29/2023 CR XR SHOULDER RT COMPLETE 2+V from 03/31/2024 FINDINGS: BONES: There are stable post operative changes of a right total reverse shoulder replacement present. No fracture or dislocation. JOINTS: The orthopedic hardware is in good position. No evidence of hardware loosening. There are d egenerative changes seen at the acromioclavicular joint. SOFT TISSUE: Normal. IMPRESSION: Stable right total reverse shoulder replacement. DATA REPOSITORY: RADIATION DOSE DELIVERED:
== END 2024-04-13 11:23 | disposition home or self-care (01) ==
LOC: DIORS 11:23
PROVIDERS: PCP Nurse Practitioner Family; Visit Provider Student in an Organized Health Care Education/Training Program
DX: M75.101 Unspecified rotator cuff tear or rupture of right shoulder, not specified as traumatic (principal); M12.811 Other specific arthropathies, not elsewhere classified, right shoulder
CPT/HCPCS: 73030

== ENCOUNTER 2024-05-28 21:13 | Emergency (ER) | payer MEDICARE, SELFPAY ==
[2024-05-28] VITALS (12 sets, daily range): BP systolic 157–175; BP diastolic 45–141; PULSE 74–131; RESP 14–22; TEMP 37; O2SAT 91–97
--- NOTE | 2024-05-28 21:15 | RT.EKG_ITS ---
APPROVED REPORT Exam: Resting ECG Reason for Exam: l shoulder pain, chest tenderness Patient Location: E HR:81 bpm ECG Measurements Heart Rate 81 AXIS KY 197 P -9 QRSd 95 QRS -10 QT 401 T 62 QTc 465 Conclusion Sinus rhythm...normal P axis, V-rate 60- 99 Anterior infarct, old...Q >40mS, abnormal ST-T, V2-V5 Narrow complex normal sinus rhythm at a rate of 81. Left axis deviation LVH based on voltage criteri a. Poor R wave progression. KY and QTc within normal limits. T wave version in aVL appears similar to prior. Prior dated earlier this year. No acute injury pattern.
[2024-05-28 21:40] LABS: Abs Immature Grans 0.05 10^3/uL (0.0-0.06); Absolute Basophil Count 0.07 10^3/uL (0.0-0.2); Absolute Lymphocyte Count 1.88 10^3/uL (1.2-3.4); Absolute Neutrophil Count 9.17 10^3/uL (1.2-6.7); Basophils % 0.6 %; Eosinophils % 2.4 %; HCT 37.4 % (36.0-46.0); HGB 12.1 g/dL (11.2-15.7); Immature Grans % 0.4 %; Lymphocytes % 15.1 %; MCH 31.1 pg (27.0-33.0); MCHC 32.4 % (32.0-36.0); MCV 96 fL (80-95); MPV 9.8 fL (8.0-11.0); Neutrophils % 73.5 %; Platelet Count 350 10^3/uL (130-400); RBC 3.89 10^6/uL (3.93-5.22); RDW 13.4 % (11.7-14.6); RDW-SD 47.7 fL; WBC 12.47 10^3/uL (4.4-10.8)
--- NOTE | 2024-05-28 21:50 | W.ED.GENAD ---
Discharge Plan Disposition Patient Disposition: Home Condition: Good Discharge Details Clinical Impression: Acute pain of left shoulder Primary Care Provider: Destiny Brooke ED Provider: Nayana Otoole Home Meds and New Rx's Prescriptions: Continued aspirin [Adult Aspirin Regimen] 81 mg tablet,delayed release (DR/EC) 81 mg PO DAILY prednisone 1 mg tablet 4 mg PO Q OTHER DAY Rx Instructions: alternates every other day with 5 mg prednisone 5 mg tablet 5 mg PO .every other day Qty: 30 Rx Instructions: alternating with 4 mg cyanocobalamin (vitamin B-12) 1,000 mcg capsule 1,000 mcg PO DAILY cholecalciferol (vitamin D3) 25 mcg (1,000 unit) capsule 1,000 unit PO DAILY magnesium 500 mg tablet 1,000 mg PO QHS zoledronic [id number] [Reclast] 5 mg/100 mL piggyback IV .Annual tramadol 50 mg tablet 50 mg PO Q8H PRN (Reason: severe pain) Qty: 9 0RF naproxen 250 mg tablet 250 mg PO BID PRNQty: 20 0RF Rx Instructions: take with a meal alprazolam 0.5 mg tablet 0.5 mg PO ONCE PRN Patient Comments: TAKE ONE TABLET BY MOUTH ONCE [address] Discharge Instructions Additional Instructions: Please call [facility] orthopedics first thing Thursday to schedule follow-up appointment for further evaluation/management of your shoulder pain. Your workup today was reassuring. Your pain is most consistent with musculoskeletal origin. I recommend that you continue using lidocaine patches, IcyHot, Voltaren gel, or other muscle rubs as needed. You may also use heat/ice alternating, but please be sure not to use this on top of the lidocaine patches. Return to emergency care if you develop new chest pain, difficulty breathing, feeling like you are going to pass out, fevers associated with your cough, or if you are very worried and need to be rechecked again immediately. Referrals: [facility] [Provider Group] HPI General Date/Time Provider Initiated Documentation: 05/28/24 21:15. HPI Narrative: Karina is a 89 year old female who presents to the emergency department today for evaluation of sudden onset of left shoulder pain that occurred while she was standing in her kitchen this evening. Pain radiates into the left side of her chest and into the left side of her neck. She does report that she has had a cough for the last week or so, this is dry cough and nonproductive. Denies fever/chills, dizziness, headache, tinnitus, congestion, sore throat, other chest pain, shortness of breath, nausea/vomiting, abdominal pain, change in bowel or bladder function, distal numbness/tingling. No history of trauma. past medical history is significant for osteoporosis and recent right shoulder replacement in March. She denies calf redness/swelling/tenderness, pedal edema, history of hormone use, history of cancer or blood clots, tobacco use, cardiac history/ Physical exam remarkable for tenderness with palpation of anterior left shoulder, left upper ribs, and muscles on left side of neck. Decreased range of motion to shoulder (extension especially) due to discomfort. No deformity or crepitus noted. No C-spine tenderness/step-off/deformity. She does feel stretching in her neck with Spurling test, no radicular pain. No distal weakness or skin color change. Easy work of breathing, lung sounds clear bilaterally. Normal heart sounds. No JVD or pedal edema noted. No calf redness/swelling/tenderness. Normal gait. Patient is alert and oriented, no acute distress. ACS, muscle strain, D/dx includes but is not limited to: ACS, pneumonia, musculoskeletal pain, fracture or dislocation, rotator cuff tendonitis or other chronic process. Low suspicion for ACS, heart score 2, indicating low risk of MACE I independently interpreted the following tests: EKG reassuring, normal sinus rhythm rate 81. ST depressions noted in aVL, however this is not a new finding as noted on previous EKG. CBC reassuring, mild leukocytosis noted (12.47, has been similarly elevated in the past). CMP, mag, lipase reassuring. Initial troponin reassuring at 15, followed by 1 hour a repeat remained flat. Chest x-ray reassuring, no obvious infiltrates. Left shoulder x-ray unremarkable, no fracture or dislocation noted. Findings were confirmed by radiologist. While in the emergency department, Karina received Tylenol and a lidocaine patch for discomfort. She reports that discomfort is feeling a bit better. Cardiac workup today very reassuring. Most likely musculoskeletal etiology, especially as patient recently had right shoulder replaced and has been using her left arm more than usual to make up for this. She is closely followed by PT and orthopedics, has appointments within the next 1 to 2 weeks. Reviewed discharge instructions with patient, including symptomatic management and red flags indicating need for return to emergency care Related Data Home Medications ?Medication ?Instructions ?Recorded ?Confirmed aspirin 81 mg tablet,delayed 81 mg PO DAILY 08/01/21 05/28/24 release (Adult Aspirin Regimen) cholecalciferol (vitamin D3) 25 1,000 unit PO DAILY 07/10/23 05/28/24 mcg (1,000 unit) capsule cyanocobalamin (vitamin B-12) 1,000 mcg PO DAILY 07/10/23 05/28/24 1,000 mcg capsule magnesium 500 mg tablet 1,000 mg PO QHS 07/10/23 05/28/24 zoledronic acid 5 mg/100 mL in device IV .Annual 07/10/23 04/13/24 mannitol 5 %-water intravenous piggybck (Reclast) prednisone 1 mg tablet 4 mg PO Q OTHER DAY 03/02/24 05/28/24 prednisone 5 mg tablet 5 mg PO .every other day #30 03/02/24 05/28/24 tab-caps naproxen 250 mg tablet 250 mg PO BID PRN #20 tabs 03/31/24 05/28/24 tramadol 50 mg tablet 50 mg PO Q8H PRN severe pain #9 04/13/24 05/28/24 tabs alprazolam 0.5 mg tablet 0.5 mg PO ONCE PRN 05/28/24 05/28/24 Previous Rx's ?Medication ?Instructions ?Recorded naproxen 250 mg tablet 250 mg PO BID PRN #20 tabs 03/31/24 tramadol 50 mg tablet 50 mg PO Q8H PRN severe pain #9 04/13/24 tabs Allergies Allergy/AdvReac Type Severity Reaction Status Date / Time benzonatate Allergy Intermediate Skin Rash Verified 05/28/24 21:24 amoxicillin (From Augmentin) Allergy Mild Rash Verified 05/28/24 21:24 azithromycin Allergy Mild Rash Verified 05/28/24 21:24 clavulanic acid (From Allergy Mild Rash Verified 05/28/24 21:24 Augmentin) rofecoxib AdvReac Mild NAUSEA Verified 05/28/24 21:24 methotrexate AdvReac Unknown Skin Rash Verified 05/28/24 21:24 shellfish derived AdvReac NAUSEA & Verified 05/28/24 21:24 VOMITING General Stated Complaint: Orthopedic EZEKIEL: 4 Review of Systems Narrative: see HPI Exam Const General: cooperative, healthy appearing, comfortable, no acute distress, well developed and well groomed Nutritional Appearance: thin Orientation: alert and oriented x3 HENMT Head: normal to inspection and atraumatic Ears: hearing grossly normal bilaterally General nose exam: external nose normal Face and sinus: normal facial exam Neck Neck: normal visual inspection, full ROM and no lymphadenopathy Chest Chest: tenderness (to upper L anterior chest wall) Resp Effort & Inspection: normal respiratory effort and able to speak in complete sentences Auscultation: clear to auscultation bilaterally Cardio Jugular venous pressure: no JVD Rate: regular rate Rhythm: regular rhythm Extrem General: no pedal edema and no calf tenderness Left upper extremity: shoulder/upper arm (Decreased range of motion due to discomfort) Details: tenderness (Diffuse, anterior shoulder extending into left side of neck and left upper chest) Course Vital Signs Vital signs: Vital Signs Temperature 37.0 C 05/28/24 21:16 Pulse 88 05/28/24 21:16 Respiratory Rate 16 05/28/24 21:16 Blood Pressure 175/141 H 05/28/24 21:16 Pulse Oximetry 97 05/28/24 21:16 Temperature 37.0 C 05/28/24 21:16 Temperature Source Oral 05/28/24 21:16 Pulse 88 05/28/24 21:16 Respiratory Rate 16 05/28/24 21:16 Respiratory Effort Normal 05/28/24 21:21 Blood Pressure 175/141 H 05/28/24 21:16 Pulse Oximetry 97 05/28/24 21:16 Oxygen Delivery Method Room Air 05/28/24 21:16 Oxygen Flow Rate 0 05/28/24 21:16 Pain Level 7 05/28/24 21:16 Lab/Test Results Lab/Test Results: Laboratory Tests Range/Units 05/28/24 21:33 WBC (4.4-10.8) 10^3/uL 12.47 H RBC (3.93-5.22) 10^6/uL 3.89 L Hgb (11.2-15.7) g/dL 12.1 Hct (36.0-46.0) % 37.4 MCV (80-95) fL 96 H MCH (27.0-33.0) pg 31.1 MCHC (32.0-36.0) % 32.4 RDW (11.7-14.6) % 13.4 Plt Count (130-400) 10^3/uL 350 MPV (8.0-11.0) fL 9.8 Immature Gran % % 0.4 Neutrophils % % 73.5 Lymphocytes % % 15.1 Monocytes % % 8.0 Eosinophils % % 2.4 Basophils % % 0.6 Nucleated RBC % (0.0-0.3) % 0.0 Absolute Neutrophils (1.2-6.7) 10^3/uL 9.17 H Absolute Lymphocytes (1.2-3.4) 10^3/uL 1.88 Absolute Monocytes (0.1-0.8) 10^3/uL 1.00 H Absolute Eosinophils (0.0-0.7) 10^3/uL 0.30 Absolute Basophils (0.0-0.2) 10^3/uL 0.07 Medical Decision Making Imaging Data Radiologic Study: Radiologist's impression: PROCEDURE INFORMATION: Exam: XR Chest Exam date and time: 05/28/2024 10:06 PM Age: 89 years old Clinical indication: Other: L shoulder/chest/neck pain, nontraumatic; Prior surgery; Surgery date: 1- 6 months; Surgery type: Right shoulder replacement on 03/31/2024. TECHNIQUE: Imaging protocol: Radiologic exam of the chest. Views: 2 views. COMPARISON: CR XR CHEST 2V PA LATERAL 06/29/2023 1:36 PM FINDINGS: Lungs: Linear bibasilar opacities most consistent with subsegmental atelectasis. Pleural spaces: Unremarkable. No pleural effusion. No pneumothorax. Heart/Mediastinum: The heart demonstrates diffuse enlargement. There is a small hiatal hernia. Bones/joints: Right shoulder prosthesis. IMPRESSION: No acute process. Stable study when compared to 06/29/2023 Radiologic Study #2: Radiologist's impression: PROCEDURE INFORMATION: Exam: XR Chest Exam date and time: 05/28/2024 10:06 PM Age: 89 years old Clinical indication: Other: L shoulder/chest/neck pain, nontraumatic; Prior surgery; Surgery date: 1- 6 months; Surgery type: Right shoulder replacement on 03/31/2024. TECHNIQUE: Imaging protocol: Radiologic exam of the chest. Views: 2 views. COMPARISON: CR XR CHEST 2V PA LATERAL 06/29/2023 1:36 PM FINDINGS: Lungs: Linear bibasilar opacities most consistent with subsegmental atelectasis. Pleural spaces: Unremarkable. No pleural effusion. No pneumothorax. Heart/Mediastinum: The heart demonstrates diffuse enlargement. There is a small hiatal hernia. Bones/joints: Right shoulder prosthesis. IMPRESSION: No acute process. Stable study when compared to 06/29/2023 Quality:[facility] Health Related Social Needs: No Data to Display [facility] All Active Problems (Updated 05/28/24 @ 23:02 by Nayana Gracia) Acute pain of left shoulder (Acute) Right foot strain (Acute ~02/05/24) Examined at [facility] ED. 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 Dexa 2022 Prediabetes (Chronic) Rotator cuff tear arthropathy of right shoulder (Chronic) s/p Right reverse total shoulder arthroplasty (constrained liner) 03/31/24 Pelvic organ prolapse quantification stage 3 cystocele (Chronic) Lichen sclerosus et atrophicus of the vulva (Chronic) Diagnosed 1985 with biopsy at [facility] [place]. Followed by [facility] gynecology Urge incontinence (Chronic) Medical History Major depressive disorder Polymyalgia rheumatica Surgical History 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) S/P colonoscopy S/P cholecystectomy S/P appendectomy H/O cataract extraction Status post total left knee replacement (01/31/09) S/P colon resection (~2003) S/P total abdominal hysterectomy and bilateral salpingo-oophorectomy Family History Mother , at 50 from Crohn disease Crohn disease Father , at 50 of [place] Heart disease Myocardial infarction Brother , at 76 of lung cancer Lung cancer Brother , at 50 of cancer Cancer Son , at 55 from esophageal cancer Esophageal cancer Son No problems noted. Son No problems noted. Daughter No problems noted. Maternal Grandfather No problems noted. Maternal Grandmother No problems noted. Paternal Grandfather No problems noted. Paternal Grandmother No problems noted. Social History Smoking/Tobacco Use Status: Never Second Hand Exposure: Yes Smoking risk assessment performed?: Yes Alcohol Intake: current Alcohol Intake frequency: holidays/special occasions only Drug use: Never Substance use type: does not use Household members: spouse and other Housing: house Number of Children: 3 Communication Needs: Corrective Lenses Do you need help understanding health information?: Never Pets and animals: Yes Pets and animals: cat(s) Sexually active: No Do you think of yourself as: straight/heterosexual Current gender identity: female What is your relationship status?: How often do you talk on the phone with friends or family?: three or more times per week How often do you get together with friends or relatives?: twice per week How often do you attend sikhism or nondenominational services?: 4 or more times per year Do you belong to any clubs or organized social groups?: yes Panel score (0-1 are the most socially isolated patients): 3 What type of physical activity do you participate in: none Ketty/Restorationist: Taoist Special ketty needs: No Seatbelt use: always Helmet use: No Drive intox or ride w/intox residential recycle driver: No Do you feel safe at home: Yes Additional Social history: [employer] Female Reproductive History Menstrual Menopause type: surgical History History 4 Para 4 Hx # Term Pregnancies 4 Multiple births Hx # Pregnancies Ectopic pregnancies AB induced Hx Number of Living Children 3 AB spontaneous
[2024-05-28 21:58] LABS: ALT 11 U/L (14-59); AST 13 U/L (15-37); Albumin 3.9 g/dL (3.4-5.0); Alkaline Phosphatase 61 U/L (46-116); BUN 17 mg/dL (7-18); CREATININE 0.9 mg/dL (0.55-1.02); Calcium 8.8 mg/dL (8.5-10.1); Chloride 103 mmol/L (98-107); Estimated GFR 61.87 (mL/min/1.73m2); Glucose 132 mg/dL (74-106); Lipase 22 U/L (<78); Magnesium 1.9 mg/dL (1.8-2.4); Potassium 3.8 mmol/L (3.5-5.1); Sodium 141 mmol/L (136-145); Total Protein 7.2 g/dL (6.4-8.2); Troponin I 15 ng/L (<or=51)
--- NOTE | 2024-05-28 22:20 | DI.RAD_ITS ---
Exam(s) XR SHOULDER LT COMPLETE 2+V EXAM: XR SHOULDER LT COMPLETE 2+V CLINICAL HISTORY: L shoulder pain radiating into neck and chest. TECHNIQUE: 2D digital imaging was performed of the left shoulder. Four images were obtained. AP, G rashey and Y views were obtained. COMPARISON: CR XR SHOULDER RT COMPLETE 2+V from 04/13/2024 FINDINGS: BONES: No acute fracture is present. No bony destructive lesion is seen. JOINTS: No dislocation present. The acromioclavicular and glenohumeral joints are well maintained. SOFT TISSUE: Normal. IMPRESSION: No acute abnormality. DATA REPOSITORY: RADIATION DOSE DELIVERED:
--- NOTE | 2024-05-28 22:20 | DI.RAD_ITS ---
Exam(s) XR CHEST 2V PA LATERAL EXAM: XR CHEST 2V PA LATERAL CLINICAL HISTORY: L shoulder/chest/neck pain, nontraumatic TECHNIQUE: 2D digital imaging was performed of the chest. Two images were obtained. PA and lateral views were obtained. COMPARISON: CR,XR XR CHEST 2V PA LATERAL from 06/29/2023 FINDINGS: MEDIASTINUM: Normal. HEART: Normal. PULMONARY VASCULATURE: Normal. LUNGS: The lungs are hyperinflated with flattened diaphragms suggesting underlying COPD. No focal co nsolidating infiltrates are present. PLEURAL SPACE: No pleural effusion or pneumothorax. BONE:Within normal limits for the patient's age. Old thoracic compression fracture deformities. The re is a total reverse right shoulder arthroplasty. OTHER FINDINGS:Normal. IMPRESSION: No acute pulmonary findings. DATA REPOSITORY: RADIATION DOSE DELIVERED:
--- NOTE | 2024-05-28 22:25 | DI.VRAD_ITS ---
PROCEDURE INFORMATION: Exam: XR Chest Exam date and time: 05/28/2024 10:06 PM Age: 89 years old Clinical indication: Other: L shoulder/chest/neck pain, nontraumatic; Prior surgery; Surgery date: 1-6 months; Surgery type: Right shoulder replacement on 03/31/2024. TECHNIQUE: Imaging protocol: Radiologic exam of the chest. Views: 2 views. COMPARISON: CR XR CHEST 2V PA LATERAL 06/29/2023 1:36 PM FINDINGS: Lungs: Linear bibasilar opacities most consistent with subsegmental atelectasis. Pleural spaces: Unremarkable. No pleural effusion. No pneumothorax. Heart/Mediastinum: The heart demonstrates diffuse enlargement. There is a small hiatal hernia. Bones/joints: Right shoulder prosthesis. IMPRESSION: No acute process. Stable study when compared to 06/29/2023 Dictated and Authenticated by: Adelia Aguilar MD. Ordering:CALEB Kraus MD
[2024-05-28] MEDS: Acetaminophen 325 MG TAB 650 MG PO (22:26)
--- NOTE | 2024-05-28 22:26 | DI.VRAD_ITS ---
PROCEDURE INFORMATION: Exam: XR Left Shoulder Exam date and time: 05/28/2024 10:11 PM Age: 89 years old Clinical indication: Other: L shoulder pain radiating into neck and chest TECHNIQUE: Imaging protocol: Radiologic exam of the left shoulder. Views: 2 or more views. COMPARISON: CR XR shoulder LT complete 2+V 08/05/2018 10:29 AM FINDINGS: Bones/joints: Mild left shoulder degenerative disease. No fracture or dislocation. Vasculature: Diffuse atherosclerotic disease of the thoracic aorta. Soft tissues: Normal. IMPRESSION: No acute process. Dictated and Authenticated by: Adelia Aguilar MD. Ordering:CALEB Kraus MD
[2024-05-28 22:59] LABS: Troponin I 15 ng/L (<or=51)
[2024-05-28] MEDS: Lidocaine 5% Patch 1 PATCH TP (23:19)
== END 2024-05-28 23:22 | disposition home or self-care (01) ==
PROVIDERS: Emergency Provider Nurse Practitioner Family; PCP Nurse Practitioner Family
DX: M54.2 Cervicalgia (principal); M25.512 Pain in left shoulder; Z79.82 Long term (current) use of aspirin
CPT/HCPCS: 36415; 80053; 83690; 93005; 99285; 71046; 73030; 83735; 84484; 85025; 93010; 99284

== ENCOUNTER 2024-06-15 16:02 | Outpatient (CLI) | payer MEDICARE, SELFPAY ==
--- NOTE | 2024-06-15 10:15 | DI.RAD_ITS ---
Exam(s) XR SHOULDER RT COMPLETE 2+V EXAM: XR SHOULDER RT COMPLETE 2+V CLINICAL HISTORY: F/U RIGHT RTSA. TECHNIQUE: 2D digital imaging was performed. COMPARISON: CR XR SHOULDER RT COMPLETE 2+V from 04/13/2024\ FINDINGS: Four views There is stable position alignment of the components of the reverse prosthesis. No fracture or loose radha evident. IMPRESSION: Stable satisfactory appearance of right shoulder reverse prosthesis. DATA REPOSITORY: RADIATION DOSE DELIVERED:
== END 2024-06-15 16:03 | disposition home or self-care (01) ==
LOC: DIORS 16:02
PROVIDERS: PCP Nurse Practitioner Family; Visit Provider Student in an Organized Health Care Education/Training Program
DX: Z96.611 Presence of right artificial shoulder joint; Z47.1 Aftercare following joint replacement surgery
CPT/HCPCS: 99024; 73030

== ENCOUNTER 2024-07-12 15:55 | Outpatient (CLI) | payer MEDICARE, SELFPAY ==
--- NOTE | 2024-07-12 13:45 | DI.RAD_ITS ---
Exam(s) XR SHOULDER RT COMPLETE 2+V EXAM: XR SHOULDER RT COMPLETE 2+V CLINICAL HISTORY: RIGHT SHOULDER PAIN. TECHNIQUE: 2D digital imaging was performed. Three images were obtained. Grashey and Y views were o btained. COMPARISON: CR XR SHOULDER RT COMPLETE 2+V from 06/15/2024 FINDINGS: BONES: There are stable post operative changes of a right reverse total shoulder arthroplasty present . No fracture or dislocation. JOINTS: The orthopedic hardware is in good position. No evidence of hardware loosening. There is un changed arthrosis of the acromioclavicular joint. Soft tissue calcification is again seen lateral to the acromion. SOFT TISSUE: Normal. IMPRESSION: Stable right reverse total shoulder arthroplasty. DATA REPOSITORY: RADIATION DOSE DELIVERED:
== END 2024-07-12 15:56 | disposition home or self-care (01) ==
LOC: DIORS 15:55
PROVIDERS: PCP Nurse Practitioner Family; Referring Provider Nurse Practitioner Family; Visit Provider Student in an Organized Health Care Education/Training Program
DX: M75.101 Unspecified rotator cuff tear or rupture of right shoulder, not specified as traumatic (principal); M12.811 Other specific arthropathies, not elsewhere classified, right shoulder; Z96.611 Presence of right artificial shoulder joint; M77.8 Other enthesopathies, not elsewhere classified; R20.2 Paresthesia of skin; R20.0 Anesthesia of skin
CPT/HCPCS: 20610; 99213; J1010; 73030

== ENCOUNTER 2024-07-21 03:40 | Outpatient (RCR) | payer MEDICARE, SELFPAY ==
[2024-07-21 08:00] VITALS: BP 115/83; PULSE 64; RESP 18; TEMP 36; O2SAT 94
[2024-07-21] MEDS: ZOLEDRONIC ACID/MANNITOL/WATER 5 MG/100 ML BTL 300 MG IVPB (08:01)
[2024-07-21] MEDS: Normal Saline Flush 10 ML SYR IVP (08:01)
[2024-07-21 08:30] VITALS: BP 127/78; PULSE 68; RESP 17; TEMP 36.1; O2SAT 97
== END 2024-07-29 23:59 | disposition home or self-care (01) ==
LOC: INF 03:40
PROVIDERS: PCP Nurse Practitioner Family; Visit Provider Family Medicine
DX: M81.0 Age-related osteoporosis without current pathological fracture (principal)
CPT/HCPCS: 96365; J3489

== ENCOUNTER 2024-08-16 15:32 | Outpatient (CLI) | payer MEDICARE, SELFPAY ==
--- NOTE | 2024-08-16 09:15 | DI.RAD_ITS ---
Exam(s) XR SHOULDER RT COMPLETE 2+V EXAM: XR SHOULDER RT COMPLETE 2+V CLINICAL HISTORY: F/U RIGHT RTSA. TECHNIQUE: 2D digital imaging was performed. Two images were obtained. Grashey and Y views were obt ained. COMPARISON: CR XR SHOULDER RT COMPLETE 2+V from 06/15/2024 CR XR SHOULDER RT COMPLETE 2+V from 07/12/2024 FINDINGS: BONES: There are stable post operative changes of a right reverse total shoulder arthroplasty present . No fracture or dislocation. JOINTS: The orthopedic hardware is in good position. No evidence of hardware loosening. Degenerativ e changes are seen at the acromioclavicular joint. SOFT TISSUE: There is again seen a soft tissue calcification inferior to the glenohumeral joint. IMPRESSION: Stable right reverse total shoulder arthroplasty. DATA REPOSITORY: RADIATION DOSE DELIVERED:
== END 2024-08-16 15:33 | disposition home or self-care (01) ==
LOC: DIORS 15:32
PROVIDERS: PCP Nurse Practitioner Family; Referring Provider Nurse Practitioner Family; Visit Provider Student in an Organized Health Care Education/Training Program
DX: Z47.1 Aftercare following joint replacement surgery (principal); Z96.611 Presence of right artificial shoulder joint; M77.8 Other enthesopathies, not elsewhere classified
CPT/HCPCS: 99213; 73030

== ENCOUNTER 2024-09-26 01:11 | Outpatient (CLI) | payer MEDICARE, SELFPAY ==
--- NOTE | 2024-09-26 06:15 | DI.US_ITS ---
Exam(s) US ABDOMEN EXAM: US ABDOMEN CLINICAL HISTORY: upper abdominal pain,r10.10,ge reflux disease,dysphagia TECHNIQUE: Ultrasound abdomen performed using standard protocol. COMPARISON: CT ABD PELVIS WITH CONTRAST from 08/11/2017 FINDINGS: ABDOMINAL AORTA AND IVC: Visualized portions normal caliber. PANCREAS: Normal where visualized. LIVER: Normal. Hepatopetal flow in the Portal Vein. No evidence of a hepatic mass. The liver measure s 12.2cm long. GALLBLADDER:Status post cholecystectomy. BILIARY SYSTEM: Common bile duct measures < 7 mm. No intrahepatic biliary ductal dilation. KIDNEYS: Kidneys are symmetric in size. There is a 4 mm echogenic focus in the inferior pole of the r ight kidney. This may represent a nonobstructing stone. No evidence of hydronephrosis. No renal mas s or cyst identified. SPLEEN: Not enlarged. ASCITES: None seen. IMPRESSION: 1. Status post cholecystectomy. No significant biliary ductal dilatation. 2. Probable nonobstructing right renal stone. 3. Otherwise unremarkable abdominal ultrasound. DATA REPOSITORY:
--- NOTE | 2024-09-26 10:10 | DI.RAD_ITS ---
Exam(s) RF BARIUM SWALLOW EXAM: RF BARIUM SWALLOW CLINICAL HISTORY: dysphagia,r13.10,ge reflux disease,upper abd pain TECHNIQUE: 2D and realtime digital imaging was performed. CONTRAST MATERIAL: Oral barium contrast was administered. COMPARISON: CT ABD PELVIS WITH CONTRAST from 08/11/2017 CR,XR XR CHEST 2V PA LATERAL from 05/28/2024 FINDINGS: CHEST X-RAY: The heart and pulmonary vasculature are within normal limits. The lungs are clear. No pl eural effusion or pneumothorax is present. The bones are within normal limits for the patient's age. Note is again made of a hiatal hernia. The patient has a right reverse total shoulder arthroplasty. There is an old T7 compression deformity. The lungs appear hyperinflated suggesting underlying COPD . There are age-appropriate degenerative changes in the cervical spine. 2-3 mm anterolisthesis of C 3 on C4 and 2 mm anterolisthesis of C4 on C5 is noted. ESOPHAGRAM: The esophagus is patent with no evidence for erosions, fold thickening, strictures, or ma sses. With regards to the motility, there is a normal primary stripping wave. No tertiary contraction s were noted. Note is made of a Zenker's diverticulum measuring 1.3 x 2.2 cm. IMPRESSION: 1. Note is made of a Zenker's diverticulum. 2. Large hiatal hernia. RADIATION DOSE DELIVERED: lisa Barros=20.4 mGy
[2024-09-26] MEDS: Barium Sulfate 60% W/V 355 ML BTL 175 ML PO (10:12)
== END 2024-09-26 01:31 ==
LOC: DI 01:11
PROVIDERS: PCP Nurse Practitioner Family; Visit Provider Nurse Practitioner Family
DX: K21.9 Gastro-esophageal reflux disease without esophagitis (principal)
CPT/HCPCS: 74221; 76700

== ENCOUNTER 2024-09-26 01:55 | Outpatient (CLI) | payer MEDICARE, SELFPAY ==
[2024-09-26 09:36] LABS: HCT 40.1 % (36.0-46.0); MCH 30.4 pg (27.0-33.0); MCHC 32.4 % (32.0-36.0); MCV 94 fL (80-95); MPV 9.8 fL (8.0-11.0); Platelet Count 387 10^3/uL (130-400); RBC 4.27 10^6/uL (3.93-5.22); RDW 14.7 % (11.7-14.6); RDW-SD 50.7 fL
[2024-09-26 09:45] LABS: Hemoglobin A1C 5.9 % (<5.7)
[2024-09-26 10:24] LABS: Anion Gap 6.8 mmol/L (3-11); BUN 16 mg/dL (7-18); CO2 29.2 mmol/L (21.0-32.0); CREATININE 0.8 mg/dL (0.55-1.02); Calcium 9.1 mg/dL (8.5-10.1); Chloride 108 mmol/L (98-107); Estimated GFR 71.27 (mL/min/1.73m2); Glucose 101 mg/dL (74-106); Potassium 4.4 mmol/L (3.5-5.1); Sodium 144 mmol/L (136-145); Vitamin D 25 Total 61 ng/mL (30-100)
[2024-09-26 14:43] LABS: Abs Immature Grans 0.03 10^3/uL (0.0-0.06); Absolute Basophil Count 0.08 10^3/uL (0.0-0.2); Absolute Eosinophil Count 0.29 10^3/uL (0.0-0.7); Absolute Lymphocyte Count 1.81 10^3/uL (1.2-3.4); Absolute Monocyte Count 0.69 10^3/uL (0.1-0.8); Absolute Neutrophil Count 6.98 10^3/uL (1.2-6.7); Basophils % 0.8 %; Eosinophils % 2.9 %; Immature Grans % 0.3 %; Lymphocytes % 18.3 %; Neutrophils % 70.7 %
[2024-09-26 14:51] LABS: C-Reactive Protein < 0.50 mg/dL (<or=0.5)
[2024-09-26 14:52] LABS: ALT 12 U/L (14-59); AST 17 U/L (15-37); Albumin 3.5 g/dL (3.4-5.0); Alkaline Phosphatase 62 U/L (46-116); Bilirubin, Total 0.5 mg/dL (0.2-1.0); Total Protein 6.9 g/dL (6.4-8.2)
== END 2024-09-26 01:56 | disposition home or self-care (01) ==
LOC: LBO 01:55
PROVIDERS: Internal Medicine Rheumatology; PCP Nurse Practitioner Family; Visit Provider Nurse Practitioner Family
DX: R73.03 Prediabetes (principal); M06.4 Inflammatory polyarthropathy; M81.0 Age-related osteoporosis without current pathological fracture; M06.00 Rheumatoid arthritis without rheumatoid factor, unspecified site
CPT/HCPCS: 36415; 80048; 80053; 82306; 85027; 74221; 76700; 83036; 85007; 86140

== ENCOUNTER 2024-10-17 01:56 | Outpatient (CLI) | payer MEDICARE, SELFPAY ==
--- NOTE | 2024-10-17 07:45 | DI.US_ITS ---
APPROVED REPORT EXAM: Comprehensive 2D, Doppler, and color-flow Echocardiogram Patient Location: Out-Patient Tier Lift Operator: Praful Chopra RDCS (AE) Indications: Reassess MVR Other Information Study Quality: Adequate Conclusion Normal left ventricular wall thickness and chamber size. Ejection fraction is 50 to 55%. Wall motio n is normal Normal right ventricular size and function Mildly dilated left atrium. Normal right atrial size Aortic valve is sclerotic and trileaflet without stenosis or regurgitation Mitral annular calcification. Moderate mitral regurgitation Mild tricuspid regurgitation. Estimated right ventricular systolic pressure is 31 mmHg Wall motion Left Ventricle The left ventricle is normal size. Left ventricular systolic function is borderline. There is normal left ventricular wall thickness. There are no segmental wall motion abnormalities There is no ventric ular septal defect visualized. LVEF is 50-55%. Right Ventricle The right ventricle is normal size. The right ventricular systolic function is normal. Atria Left atrium is mildly dilated. The right atrium size is normal. The interatrial septum is intact with no evidence for an atrial septal defect. Aortic Valve The aortic valve is sclerotic. Aortic valve is trileaflet. There is no aortic valvular stenosis. No a ortic regurgitation is present. Mitral Valve Mitral annular calcification. No evidence of mitral valve stenosis. Moderate mitral regurgitation. Tricuspid Valve The tricuspid valve is normal in structure. There is no tricuspid valve stenosis. Mild tricuspid regu rgitation. The RVSP is 31 mmHg. Pulmonic Valve The pulmonary valve is normal in structure. There is no pulmonic valvular stenosis. There is no pulmo dameon valvular regurgitation. Great Vessels The aortic root is normal in size. The ascending aorta is normal Aortic arch is not well visualized. IVC is normal in size and collapses >50% with inspiration. Pericardium There is no pericardial effusion. 2D Dimensions IVSD d PLAX 0.89 cm F: 0.6-1.0 Ao Root d 2.80 cm F: 2.7 - 3.3 LVPW d PLAX 0.88 cm F: 0.6 - 1.0 Ao Asc Diam d 3.20 cm F: 2.3 - 3.1 LVID d PLAX 4.51 cm F: 3.8 - 5.2 LVDs 3.28 cm F: 2.2 - 3.5 LV EF Teichholz 53.2 % FS 27.29 % LV EDV (Teich) 92.9 mL LV ESV (Teich) 43.4 mL Stroke Vol Index (Teich) 36.90 M-Mode TAPSE 1.65 cm (M/F) >1.7 LV Volumes - Method of Disks (Torres's) Single Plane 2D LV Volumes Biplane 2D LV Volumes LV EDV A4C 79.9 mL LV EDV BP 81.52 mL F: 46 - 106 LV ESV A4C 39.9 mL LV ESV BP 40.6 mL LVEF(%) A4C 50.0 % LVEF(%) BP 50.18 % F: 54 - 74 LV EDV A2C 78.4 mL LV EDV BP Index 60.38 mL/m2 F: 29 - 61 LV ESV A2C 39.9 mL SV BP LVEF(%) A2C 49.1 % SV Index LA Volume LA Length A4C 5.2 cm LA Length A2C 4.1 cm LA Area A4C s 13.93 cm2 LA Area A2C s 14.95 cm2 LA Vol A4C A-L 31.92 mL LA Vol A2C A-L 45.88 mL LA Vol Biplane A-L 42.7 mL LA Vol/BSA A4C A-L LA Vol/BSA A2C A-L LA Vol/BSA BP A-L 31.9 mL/m2 LA Vol A4C MOD 31.5 mL LA Vol A2C MOD 44.9 mL LA Vol BP MOD 39.8 mL RA Volume RA Area A4C 8.4 cm2 RA ESV A4C (A-L) 15.2mL RA Vol/BSA A4C A-L RA Length A4C 4.0 cm RA ESV A4C (MOD) 15.1mL LV Diastology MV E' medial 0.034 (>0.07 m/s) MV E Vmax 0.67 (0.4-1.3 m/s) MV E/E' MED 19.97 (<14) MV A Vmax 1.30 (0.4-1.3 m/s) MV E' lateral 0.047 (>0.1 m/s) E/A Ratio 0.5 MV E/E' LAT 14.46 (<14) MV E' Average 0.040 m/s MV E/E'(average) 16.77 Aortic Valve AoV Vmax 1.65 m/s LVOT Vmax 0.78 m/s AoV Peak Grad 11.0 mmHg LVOT Peak Grad 2.4 mmHg AoV Area (Vmax) 1.11 cm2 LVOT VTI 0.176 m AoV VTI 0.370 m LVOT Mean Grad 1.5 mmHg AoV Mean Luca. 1.09 m/s LVOT SV 41.31 mL AoV Mean Grad 5.5 mmHg LVOT Diam s 1.70 cm AoV Area (VTI) 1.12 cm2 AV Regurg Peak Gr. 10.96 mmHg Velocity Ratio 0.47 Mitral Valve MV DT 244 (160-240 msec) MR Vmax 5.89 m/s MV Vmax TIPS 1.36 m/s MR VTI 1.936 m MV Mean Grad 2.3 (<2mmHg) MR Peak Grad 138.8 mmHg MV VTI 0.361 m MR Mean Grad 99.1 mmHg MR PISA Radius 0.46 cm MR Aliasing Velocity 0.30 m/s Pulmonary Valve PV Vmax 1.12 (0.5-1.5 m/s) RVOT Vmax 0.81 m/s PV Peak Grad 5.1 mmHg RVOT Peak Gr. 2.6 mmHg PV Mean Luca 0.71 m/s RVOT VTI 0.120 m PV Mean Grad 2.4 mmHg RVOT Mean Gr. 1.4 mmHg Tricuspid Valve RA Pressure 3.00 mmHg TR Vmax 2.64 m/s TV S' 0.15 m/s TR Peak Grad 27.9 mmHg RVSP (TR) 30.9 mmHg
== END 2024-10-17 02:16 ==
LOC: DI 01:56
PROVIDERS: PCP Nurse Practitioner Family; Visit Provider Internal Medicine Cardiovascular Disease
DX: I08.1 Rheumatic disorders of both mitral and tricuspid valves (principal)
CPT/HCPCS: 93306

== ENCOUNTER → 2024-11-14 13:56 | Outpatient (BNVA) | payer MEDICARE, SELFPAY | PROVIDERS: PCP Nurse Practitioner Family; Referring Provider Nurse Practitioner Family; Visit Provider Student in an Organized Health Care Education/Training Program | DX: K44.0 Diaphragmatic hernia with obstruction, without gangrene (principal) | CPT/HCPCS: 99214 ==

== ENCOUNTER 2024-11-15 10:19 | Outpatient (CLI) | payer MEDICARE, SELFPAY ==
--- NOTE | 2024-11-15 10:00 | DI.RAD_ITS ---
Exam(s) XR SHOULDER RT COMPLETE 2+V EXAM: XR SHOULDER RT COMPLETE 2+V CLINICAL HISTORY: F/U RIGHT RTSA. TECHNIQUE: 2D digital imaging was performed. Three images were obtained. Grashey and Y views were o btained. COMPARISON: CR,XR XR SHOULDER LT COMPLETE 2+V from 05/28/2024 CR XR SHOULDER RT COMPLETE 2+V from 06/15/2024 CR XR SHOULDER RT COMPLETE 2+V from 08/16/2024 FINDINGS: BONES: There are stable post operative changes of a right reverse total shoulder arthroplasty present . No new fracture or dislocation. Well corticated osseous densities are seen adjacent to the acromio n which are chronic. JOINTS: The orthopedic hardware is in good position. No evidence of hardware loosening. SOFT TISSUE: Normal. IMPRESSION: Stable right total reverse shoulder arthroplasty. DATA REPOSITORY: RADIATION DOSE DELIVERED:
== END 2024-11-15 10:20 | disposition home or self-care (01) ==
LOC: DIORS 10:19
PROVIDERS: PCP Nurse Practitioner Family; Referring Provider Nurse Practitioner Family; Visit Provider Student in an Organized Health Care Education/Training Program
DX: Z96.611 Presence of right artificial shoulder joint (principal); Z47.1 Aftercare following joint replacement surgery
CPT/HCPCS: 99213; 73030

== ENCOUNTER 2024-12-02 00:38 | Outpatient (CLI) | payer MEDICARE, SELFPAY ==
--- NOTE | 2024-12-02 11:15 | DI.CT_ITS ---
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 TECHNIQUE: Multi planar reconstructions were performed. CONTRAST MATERIAL: None COMPARISON: CR CHEST 2 VIEWS PA,LAT from 03/14/2014 FINDINGS: CHEST: LUNGS: There are no infiltrates nor pleural effusions. Mild increased markings are noted in the ling ular segment of the left lung probably atelectatic. In the posterior aspect of the right upper lobe there is a small 2-3 mm subpleural noncalcified nodule. In the apical posterior segment of the left upper lobe there is a similar size small noncalcified fissure related nodule adjacent to the most sup erior aspect of the left major fissure. There are no spiculated lung nodules and there are no pleura l effusions. No significant focal findings in the trachea and mainstem bronchi. MEDIASTINUM: There is no obvious hilar nor mediastinal adenopathy. Thyroid gland is partially obscure d by beam hardening artifact from shoulder prosthesis but the left thyroid lobe appears abnormally en larged and heterogeneous. The trachea is mildly deviated towards the opposite-right side.No obvious axillary adenopathy Retrocardiac hiatal hernia which measures 5 cm wide by 2.5 cm AP. CARDIAC: Heart size is upper normal. There is no pericardial effusion. Coronary artery calcificatio ns noted. There is heavily calcified mitral valve annulus evident. Caliber of the thoracic aorta is within normal limits. VISUALIZED UPPER ABDOMEN:Hiatal hernia. No adrenal masses. No splenomegaly. Bilateral nephrolithia sis. There are tiny nonobstructive calculi seen in the partially visualized kidneys. OSSEOUS: Right shoulder prosthesis. There is a 50 percent compression fracture of T7..This, however, was evident on lateral chest x-ray of February 2014.. IMPRESSION: 1. Small benign-appearing lung nodules as described above. No infiltrates nor pleural effusions. 2. Hiatal hernia with measurements as above. 3. Significantly enlarged and heterogeneous thyroid gland, left lobe larger than right with some trac heal deviation to the right side. If clinically indicated this can be further studied with ultrasoun d. 4. 50 percent compression fracture of T7 unchanged from February 2014. RADIATION DOSE DELIVERED: 118.09mGy.cm Total DLP DATA REPOSITORY: All CT scans at this facility are submitted to the National Radiology Data Registry (NRDR) Dose Index Registry (DIR) with the [employer] ([employer]). RADIATION OPTIMIZATION: All CT scans at this facility use at least one of these dose optimization te chniques: automated exposure control; mA and/or kV adjustment per patient size (includes targeted exa ms where dose is matched to clinical indication); or iterative reconstruction.
== END 2024-12-02 00:58 ==
LOC: DI 00:38
PROVIDERS: PCP Nurse Practitioner Family; Visit Provider Student in an Organized Health Care Education/Training Program
DX: K44.0 Diaphragmatic hernia with obstruction, without gangrene (principal)
CPT/HCPCS: 71250

== ENCOUNTER → 2024-12-28 12:48 | Outpatient (BNVA) | payer MEDICARE, SELFPAY | PROVIDERS: PCP Nurse Practitioner Family; Referring Provider Nurse Practitioner Family; Visit Provider Student in an Organized Health Care Education/Training Program | DX: Z47.89 Encounter for other orthopedic aftercare (principal); Z96.611 Presence of right artificial shoulder joint | CPT/HCPCS: 20550; J1010 ==

== ENCOUNTER 2025-01-25 13:44 | Outpatient (CLI) | payer MEDICARE, SELFPAY ==
--- NOTE | 2025-01-25 13:15 | DI.RAD_ITS ---
Exam(s) XR SHOULDER RT COMPLETE 2+V EXAM: XR SHOULDER RT COMPLETE 2+V INDICATION: RIGHT SHOULDER PAIN. COMPARISON: CR XR SHOULDER RT COMPLETE 2+V from 11/15/2024 TECHNIQUE: 2D digital imaging was performed. Two views. FINDINGS: The left reverse shoulder prosthesis is unchanged in alignment. There are no visible surrounding abnormal lucencies. Advanced degenerative changes at the distal acromion and clavicle are again noted. DATA REPOSITORY: RADIATION DOSE DELIVERED:
== END 2025-01-25 13:45 | disposition home or self-care (01) ==
LOC: DIORS 13:44
PROVIDERS: PCP Nurse Practitioner Family; Referring Provider Nurse Practitioner Family; Visit Provider Physician Assistant
DX: M25.511 Pain in right shoulder (principal); Z96.611 Presence of right artificial shoulder joint; W19.XXXA Unspecified fall, initial encounter
CPT/HCPCS: 99213; 73030

== ENCOUNTER → 2025-02-13 14:19 | Outpatient (BNVA) | payer MEDICARE, SELFPAY | PROVIDERS: PCP Nurse Practitioner Family; Referring Provider Nurse Practitioner Family; Visit Provider Student in an Organized Health Care Education/Training Program | DX: K43.9 Ventral hernia without obstruction or gangrene (principal); R10.33 Periumbilical pain | CPT/HCPCS: 99214 ==

== ENCOUNTER 2025-02-22 15:55 | Outpatient (CLI) | payer MEDICARE, SELFPAY ==
--- NOTE | 2025-02-22 13:00 | DI.RAD_ITS ---
Exam(s) XR SHOULDER RT COMPLETE 2+V EXAM: XR SHOULDER RT COMPLETE 2+V CLINICAL HISTORY: RIGHT SHOULDER PAIN. TECHNIQUE: 2D digital imaging was performed. COMPARISON: CR XR SHOULDER RT COMPLETE 2+V from 07/12/2024 CR XR SHOULDER RT COMPLETE 2+V from 08/16/2024 CR XR SHOULDER RT COMPLETE 2+V from 11/15/2024 CR XR SHOULDER RT COMPLETE 2+V from 01/25/2025 FINDINGS: 3 views There is continued stable appearance and alignment the components of the reverse prosthesis. No evidence of new fracture or loosening. Previously described calcification inferior to the glenohumeral joint space is unchanged in size and position. This again measures approximately 12 mm x 5 mm IMPRESSION: Stable satisfactory appearance DATA REPOSITORY: RADIATION DOSE DELIVERED:
== END 2025-02-22 15:56 | disposition home or self-care (01) ==
LOC: DIORS 15:55
PROVIDERS: PCP Nurse Practitioner Family; Referring Provider Nurse Practitioner Family; Visit Provider Student in an Organized Health Care Education/Training Program
DX: S42.191A Fracture of other part of scapula, right shoulder, initial encounter for closed fracture (principal); X58.XXXA Exposure to other specified factors, initial encounter; Z96.611 Presence of right artificial shoulder joint
CPT/HCPCS: 99213; 73030

== ENCOUNTER 2025-03-24 14:36 | Outpatient (CLI) | payer MEDICARE, SELFPAY ==
--- NOTE | 2025-03-24 10:35 | DI.CT_ITS ---
Exam(s) CT ABDOMEN PELVIS W EXAM: CT ABDOMEN PELVIS W CLINICAL HISTORY: perumbilical abdpain. r/o small ventral hernia k43.9. TECHNIQUE: Imaging Protocol: Axial computed tomography images with coronal and sagittal reformatted images were created and reviewed CONTRAST MATERIAL: Intravenous: Omnipaque 350 Contrast volume:75 ml Oral: yes COMPARISON: CT ABD PELVIS WITH CONTRAST from 08/11/2017 FINDINGS: ABDOMEN and PELVIS: Lung Bases: No acute findings. Large hiatal hernia, not fully included in the field of view. Liver: Normal density. No suspicious mass. Gallbladder and biliary tract: Cholecystectomy. No biliary dilation. Pancreas: Atrophic. No abnormal calcifications or inflammatory process. No evidence of mass. Spleen: Normal. Kidneys: Normal size, contour and axis. N there are few tiny bilateral stones in both kidneys which could be vascular. No obstructive uropathy. No suspicious masses seen. Adrenal glands: No masses seen. Vasculature: Abdominal aorta non-dilated. Severe atherosclerotic calcification. Soft tissues: Unremarkable. No evidence of abdominal or 8 no hernia. Bladder: No gross wall thickening. No calculi.No focal mass. Bowel: No obstruction. No bowel wall thickening. Appendix normal. Peritoneal cavity: No ascites. No focal collection. No mesenteric inflammatory response. No free air. Bones: Degenerative disc changes and facet degenerative changes L4-5 and L5-S1. Mild spondylolisthesis at L4-5 and L5-S1. Bilateral hip joint space narrowing. Subchondral cysts on both sides of the joints bilaterally. Periarticular spurring. There is right-sided iliopsoas bursitis. The there may also be a right hip joint effusion. Reproductive organs: Hysterectomy. Lymph nodes: No pathologically enlarged lymph nodes. IMPRESSION:: No evidence of umbilical or other abdominal wall hernia. RADIATION DOSE DELIVERED: 216.2mGy.cm Total DLP DATA REPOSITORY: All CT scans at this facility are submitted to the National Radiology Data Registry (NRDR) Dose Index Registry (DIR) with the [employer] (ACR). RADIATION OPTIMIZATION: All CT scans at this facility use at least one of these dose optimization techniques: automated exposure control; mA and/or kV adjustment per patient size (includes targeted exams where dose is matched to clinical indication); or iterative reconstruction.
[2025-03-24 12:06] LABS: Abs Immature Grans 0.03 10^3/uL (0.0-0.06); HCT 37.3 % (36.0-46.0); HGB 12.4 g/dL (11.2-15.7); Immature Grans % 0.3 %; MCH 31.1 pg (27.0-33.0); MCHC 33.2 % (32.0-36.0); MCV 94 fL (80-95); MPV 10.0 fL (8.0-11.0); Platelet Count 389 10^3/uL (130-400); RBC 3.99 10^6/uL (3.93-5.22); RDW 14.6 % (11.7-14.6); RDW-SD 50.7 fL; WBC 9.56 10^3/uL (4.4-10.8)
[2025-03-24] MEDS: Barium Sulfate 2% W/V-Berry Smoothie 450 ML BTL PO ×2 (12:09→12:10)
[2025-03-24 12:20] LABS: ALT 11 U/L (14-59); AST 13 U/L (15-37); Albumin 3.8 g/dL (3.4-5.0); Alkaline Phosphatase 65 U/L (46-116); Anion Gap 8.5 mmol/L (3-11); BUN 14 mg/dL (7-18); Bilirubin, Total 0.6 mg/dL (0.2-1.0); C-Reactive Protein 0.54 mg/dL (<or=0.5); CO2 29.5 mmol/L (21.0-32.0); Calcium 9.1 mg/dL (8.5-10.1); Chloride 105 mmol/L (98-107); Estimated GFR 83.13 (mL/min/1.73m2); Glucose 112 mg/dL (74-106); Potassium 4.2 mmol/L (3.5-5.1); Sodium 143 mmol/L (136-145); Total Protein 7.3 g/dL (6.4-8.2)
[2025-03-24] MEDS: Omnipaque 350 MG/ML 100 ML BTL IJ (13:03)
[2025-03-24] MEDS: Normal Saline - Diluent 50 ML VIAL IJ (13:04)
[2025-03-24] MEDS: Normal Saline Flush 10 ML SYR IVP (13:05)
== END 2025-03-24 14:56 ==
LOC: DI 14:36
PROVIDERS: Internal Medicine Rheumatology; PCP Nurse Practitioner Family; Visit Provider Student in an Organized Health Care Education/Training Program
DX: K43.9 Ventral hernia without obstruction or gangrene (principal); Z79.899 Other long term (current) drug therapy
CPT/HCPCS: 36415; 80053; 74177; 85025; 86140; J3490

== ENCOUNTER 2025-03-30 08:59 | Outpatient (CLI) | payer MEDICARE, SELFPAY ==
--- NOTE | 2025-03-30 | DI.US_ITS ---
Exam(s) US LOWER EXTREMITY VENOUS LT EXAM: US LOWER EXTREMITY VENOUS LT CLINICAL HISTORY: M79.662 Pain in left lower leg TECHNIQUE: Grayscale, color, and doppler imaging of the deep venous system of the left lower extremity was performed. COMPARISON: US US ECHOCARDIOGRAM from 10/17/2024 FINDINGS: There is no evidence of intraluminal thrombus and there is normal compression and augmentation demonstrated within the common femoral vein, femoral vein, and popliteal vein. In the ipsilateral calf the interrogated veins also exhibit normal compression/ augmentation properties. The ipsilateral saphenofemoral junction is patent. IMPRESSION: 1. No evidence of DVT in the left lower extremity. DATA REPOSITORY:
== END 2025-03-30 09:19 ==
LOC: DI 08:59
PROVIDERS: PCP Nurse Practitioner Family; Visit Provider Physician Assistant Medical
DX: M79.662 Pain in left lower leg (principal)
CPT/HCPCS: 93971

== ENCOUNTER 2025-04-04 11:09 | Outpatient (CLI) | payer MEDICARE, SELFPAY ==
--- NOTE | 2025-04-04 10:15 | DI.RAD_ITS ---
Exam(s) XR SHOULDER RT COMPLETE 2+V EXAM: XR SHOULDER RT COMPLETE 2+V CLINICAL HISTORY: F/U RIGHT RTSA. TECHNIQUE: 2D digital imaging was performed. Three images were obtained. Axillary, Grashey and Y views were obtained. COMPARISON: CR XR SHOULDER RT COMPLETE 2+V from 02/22/2025 FINDINGS: BONES: There are stable post operative changes of a right reverse total shoulder arthroplasty present. No fracture or dislocation. There is again seen notching at the undersurface of the glenoid. There is no change in appearance of the proximal humerus. JOINTS: The orthopedic hardware is in good position. No evidence of hardware loosening. There are stable postsurgical and degenerative changes at the acromioclavicular joint. SOFT TISSUE: Normal. IMPRESSION: Stable right reverse total shoulder arthroplasty. DATA REPOSITORY: RADIATION DOSE DELIVERED:
== END 2025-04-04 11:10 | disposition home or self-care (01) ==
LOC: DIORS 11:09
PROVIDERS: PCP Nurse Practitioner Family; Visit Provider Student in an Organized Health Care Education/Training Program
DX: S42.191D Fracture of other part of scapula, right shoulder, subsequent encounter for fracture with routine healing (principal); Z96.611 Presence of right artificial shoulder joint; M54.32 Sciatica, left side; X58.XXXD Exposure to other specified factors, subsequent encounter
CPT/HCPCS: 99024; 73030

== ENCOUNTER 2025-05-10 01:41 | Outpatient (RCR) | payer MEDICARE, SELFPAY ==
[2025-05-10 14:05] VITALS: BP 128/75; PULSE 71; RESP 18; TEMP 36.5; O2SAT 96
[2025-05-10] MEDS: Normal Saline Flush 10 ML SYR IVP (14:15)
== END 2025-05-28 23:59 | disposition home or self-care (01) ==
LOC: INF 01:41
PROVIDERS: PCP Nurse Practitioner Family; Visit Provider Family Medicine
DX: M81.0 Age-related osteoporosis without current pathological fracture (principal)
CPT/HCPCS: 96365; J3489

== ENCOUNTER → 2025-06-05 13:04 | Outpatient (BNVA) | payer MEDICARE, SELFPAY | PROVIDERS: PCP Nurse Practitioner Family; Referring Provider Nurse Practitioner Family; Visit Provider Student in an Organized Health Care Education/Training Program | DX: K44.0 Diaphragmatic hernia with obstruction, without gangrene (principal); K43.9 Ventral hernia without obstruction or gangrene; K22.5 Diverticulum of esophagus, acquired; R13.10 Dysphagia, unspecified | CPT/HCPCS: 99214 ==

== ENCOUNTER 2025-06-06 14:50 | Outpatient (CLI) | payer MEDICARE, SELFPAY ==
--- NOTE | 2025-06-06 14:15 | DI.RAD_ITS ---
Exam(s) XR SHOULDER RT COMPLETE 2+V EXAM: XR SHOULDER RT COMPLETE 2+V CLINICAL HISTORY: F/U RIGHT RTSA. TECHNIQUE: 2D digital imaging was performed. COMPARISON: CR XR SHOULDER RT COMPLETE 2+V from 04/04/2025 FINDINGS: 3 views There is stable position and alignment of the components of the reverse prosthesis. No evidence of fracture or loosening. The appearance of the proximal humerus is unchanged. IMPRESSION: Continued stable radiographic appearance of the reverse prosthesis. DATA REPOSITORY: RADIATION DOSE DELIVERED:
== END 2025-06-06 14:51 | disposition home or self-care (01) ==
LOC: DIORS 14:50
PROVIDERS: PCP Nurse Practitioner Family; Visit Provider Student in an Organized Health Care Education/Training Program
DX: S42.191D Fracture of other part of scapula, right shoulder, subsequent encounter for fracture with routine healing (principal); X58.XXXD Exposure to other specified factors, subsequent encounter; Z96.611 Presence of right artificial shoulder joint; M54.32 Sciatica, left side
CPT/HCPCS: 99214; 73030